=== PATIENT | female | born 1985 | race Caucasian/White ===

== ENCOUNTER 2018-03-16 12:23 | Outpatient (REF) | payer MEDICAID, SELFPAY ==
[2018-03-16 14:23] LABS: HCG Qual (Serum) Negative
== END 2018-03-16 12:43 ==
LOC: NCHCN 12:23
PROVIDERS: PCP Family Medicine; Visit Provider Family Medicine
DX: N91.1 Secondary amenorrhea (principal)
CPT/HCPCS: 84703

== ENCOUNTER 2018-09-02 02:07 | Emergency (ER) | payer MEDICAID, SELFPAY ==
[2018-09-02 02:11] VITALS: BP 141/98; PULSE 112; RESP 16; TEMP 36.4; O2SAT 98
--- NOTE | 2018-09-02 02:18 | W.ED.GENAD ---
Discharge Plan Disposition Patient Disposition: HOME Discharge Details Chief Complaint: Headache Clinical Impression: Headache Primary Care Provider: Chanel Tesfaye ED Provider: Pollo Gomez Home Meds and New Rx's Prescriptions: Continued ondansetron HCl [Zofran] 4 MG tablet 4 mg PO PRN RF: 0 norgestimate-ethinyl estradiol [Ortho Tri-Cyclen LO (28)] 1 EACH tablet 1 tab-cap PO DAILY RF: 0 Vyvanse 60 MG capsule 60 mg PO DAILY RF: 0 hydroxyzine HCl 50 MG tablet 50 mg PO PRN RF: 0 diflorasone 60 GM ointment 60 gm Topical BID RF: 0 buprenorphine-naloxone [Suboxone] 1 EACH film 1 ea Sublingual DAILY RF: 0 riboflavin (vitamin B2) [Vitamin B-2] 100 MG tablet 200 mg PO BID RF: 0 eletriptan [Relpax] 20 MG tablet 20 mg PO PRN RF: 0 omeprazole [Prilosec] 20 MG capsule,delayed release(DR/EC) 1 cap PO DAILY RF: 0 medroxyprogesterone [Provera] 10 mg Tablet 10 mg PO DAILY RF: 0 folic acid 1 mg Tablet 1 mg PO DAILY RF: 0 nicotine 7 mg/24 hr Patch 24 Hour 1 patch TRANSDERMAL Q24H RF: 0 cannabidiol (CBD) extract 100 mg/mL Solution 3 mg PO BID RF: 0 Discharge Instructions Instructions: Migraine Headache (ED) Additional Instructions: Please contact your primary care physician to arrange follow-up. Return to the ER for any worsening or new concerning symptoms. Referrals: Chanel Tesfaye MD [Primary Care Provider] - Medical Decision Making 2:20 --33-year-old female with history of migraine headache, here with headache consistent with prior migraines, ran out of her medication. Patient is neurologically intact with no meningeal findings. Plan to treat with Compazine IV, Benadryl IV, Toradol IV, IV fluid. I will reassessed. Patient refused to change into a gown. I explained that this would limit diagnostic capability which could potentially result in misdiagnosis. Patient verbalized understanding of my concern and provided informed refusal. 2:45 -- Pt reassessed: notes complete resolution of pain. Requesting discharge. Disposition decision was made weighing the risks and benefits of hospitalization versus outpatient treatment, the risk for further decompensation, and the patient's wishes. The patient was stable and requested discharge. Prior to discharge, my usual and customary return precautions were reviewed with the patient - this included follow-up instructions and reason to return to the emergency department if condition worsens, does not improve as expected, or other new concerns arise. HPI General Mode of arrival: ambulatory. Date/Time Provider Initiated Documentation: 09/02/18 02:12. Limitations to Documentation: no limitations. Information obtained by: patient. HPI Narrative: 33-year-old female with history of migraine headaches, presents with chief complaint of headache. Patient notes headache started at 5 PM yesterday. Headache has persisted. Headache is severe. Localized right side. Headache is not the worst headache of her life. Feels exactly like prior migraines. Last migraine this severe was approximately 2 weeks ago. She notes she typically takes a triptan for her headache but has run out. She also notes she did not have any ibuprofen today. She did take some Tylenol which did not help. No associated numbness or weakness. No neck stiffness. No fever. She does have photophobia. Related Data Home Medications Medication Instructions Recorded Confirmed norgestimate-ethinyl estradiol 1 tab-cap PO DAILY tab-cap 11/08/14 09/02/18 [Ortho Tri-Cyclen LO (28)] ondansetron HCl [Zofran] 4 mg PO PRN tab-cap 11/08/14 09/02/18 omeprazole [Prilosec] 1 cap PO DAILY 12/13/14 09/02/18 Vyvanse 60 mg PO DAILY tab-cap 05/01/15 09/02/18 hydroxyzine HCl 50 mg PO PRN 04/19/16 09/02/18 buprenorphine-naloxone [Suboxone] 1 ea SUBLINGUAL DAILY film 09/23/17 09/02/18 diflorasone 60 gm TOPICAL BID script 09/23/17 09/02/18 eletriptan [Relpax] 20 mg PO PRN 09/23/17 09/02/18 riboflavin (vitamin B2) [Vitamin 200 mg PO BID 09/23/17 09/02/18 B-2] cannabidiol (CBD) extract 3 mg PO BID 09/02/18 09/02/18 folic acid 1 mg PO DAILY 09/02/18 09/02/18 medroxyprogesterone [Provera] 10 mg PO DAILY 09/02/18 09/02/18 nicotine 1 patch TRANSDERMAL Q24H 09/02/18 09/02/18 Allergies Allergy/AdvReac Type Severity Reaction Status Date / Time tioconazole [From Monistat 1] Allergy Intermediate Swelling/Ed Unverified 09/02/16 08:09 erinn methotrexate Allergy Mild Contraindic Unverified 09/02/16 08:09 ated General Stated Complaint: Headache MAYA: 3 Review of Systems Constitutional Denies fever(s) and Reports headache(s) Eyes Denies blurry vision ENT Reports headache(s) Neurologic Reports headache(s) PFSH Medical History ADD (attention deficit disorder) Anterior uveitis Anxiety Depression Migraines Suspected cervical cancer Surgical History section Hemorrhoidectomy Social History Smoking/Tobacco Use Status: Current every day Tobacco Type: cigarettes Alcohol Intake: never Drug use: Occasionally Do you feel safe at home: Yes Do you feel safe in your relationship?: Yes Exam Const General: uncomfortable and no acute distress Orientation: alert and awake HENMT Head: normocephalic and atraumatic Mouth: moist mucous membranes Eyes Conjunctivae: normal conjunctivae Sclera: normal sclerae Pupils: PERRL EOM: EOM intact bilaterally Neck Neck: trachea midline and supple Resp Auscultation: clear to auscultation bilaterally, no rales, no rhonchi and no wheezes Cardio Jugular venous pressure: no JVD Rate: regular rate and not tachycardic Rhythm: regular rhythm Skin General skin exam: no rashes or lesions noted Neuro General: alert, awake, oriented x3, tone normal and no meningeal signs Cranial Nerves: CN's II-XI intact bilaterally Cognition: normal cognition Speech: speech normal Gait: normal gait Motor: muscle tone normal throughout and strength 5/5 throughout Sensory Exam: no sensory deficits noted Extrem General: no edema Psych Appearance: grossly normal Mental Status: mental status grossly normal Speech and Movement: speech and movement normal Course Vital Signs Temperature 36.4 C L 09/02/18 02:11 Pulse 112 H 09/02/18 02:11 Respiratory Rate 16 09/02/18 02:11 Blood Pressure 141/98 H 09/02/18 02:11 Pulse Oximetry 98 09/02/18 02:11 Temperature 36.4 C L 09/02/18 02:11 Temperature Source Temporal Artery Scan 09/02/18 02:11 Pulse 112 H 09/02/18 02:11 Respiratory Rate 16 09/02/18 02:11 Respiratory Effort 09/02/18 02:11 Blood Pressure 141/98 H 09/02/18 02:11 Blood Pressure Position Standing 09/02/18 02:11 Pulse Oximetry 98 09/02/18 02:11 Oxygen Delivery Method Room Air 09/02/18 02:11 Oxygen Flow Rate 0 09/02/18 02:11
[2018-09-02] MEDS: diphenhydrAMINE 50 MG/ML VIAL 25 MG IVP (02:24)
[2018-09-02] MEDS: Ketorolac 30 MG/ML VIAL IVP (02:24)
--- NOTE | 2018-09-02 02:24 | ED.GENADUL_ITS ---
Discharge Plan Disposition Patient Disposition: HOME Discharge Details Chief Complaint: Headache Clinical Impression: Headache Primary Care Provider: Chanel Tesfaye ED Provider: Pollo Gomez Home Meds and New Rx's Prescriptions: Continued ondansetron HCl [Zofran] 4 MG tablet 4 mg PO PRN RF: 0 norgestimate-ethinyl estradiol [Ortho Tri-Cyclen LO (28)] 1 EACH tablet 1 tab-cap PO DAILY RF: 0 Vyvanse 60 MG capsule 60 mg PO DAILY RF: 0 hydroxyzine HCl 50 MG tablet 50 mg PO PRN RF: 0 diflorasone 60 GM ointment 60 gm Topical BID RF: 0 buprenorphine-naloxone [Suboxone] 1 EACH film 1 ea Sublingual DAILY RF: 0 riboflavin (vitamin B2) [Vitamin B-2] 100 MG tablet 200 mg PO BID RF: 0 eletriptan [Relpax] 20 MG tablet 20 mg PO PRN RF: 0 omeprazole [Prilosec] 20 MG capsule,delayed release(DR/EC) 1 cap PO DAILY RF: 0 medroxyprogesterone [Provera] 10 mg Tablet 10 mg PO DAILY RF: 0 folic acid 1 mg Tablet 1 mg PO DAILY RF: 0 nicotine 7 mg/24 hr Patch 24 Hour 1 patch TRANSDERMAL Q24H RF: 0 cannabidiol (CBD) extract 100 mg/mL Solution 3 mg PO BID RF: 0 Discharge Instructions Instructions: Migraine Headache (ED) Additional Instructions: Please contact your primary care physician to arrange follow-up. Return to the ER for any worsening or new concerning symptoms. Referrals: Chanel eTsfaye MD [Primary Care Provider] - Medical Decision Making 2:20 --33-year-old female with history of migraine headache, here with headache consistent with prior migraines, ran out of her medication. Patient is neurologically intact with no meningeal findings. Plan to treat with Compazine IV, Benadryl IV, Toradol IV, IV fluid. I will reassessed. Patient refused to change into a gown. I explained that this would limit diagnostic capability which could potentially result in misdiagnosis. Patient verbalized understanding of my concern and provided informed refusal. 2:45 -- Pt reassessed: notes complete resolution of pain. Requesting discharge. Disposition decision was made weighing the risks and benefits of hospitalization versus outpatient treatment, the risk for further decompensation, and the patient's wishes. The patient was stable and requested discharge. Prior to discharge, my usual and customary return precautions were reviewed with the patient - this included follow-up instructions and reason to return to the emergency department if condition worsens, does not improve as expected, or other new concerns arise. HPI General Mode of arrival: ambulatory . Date/Time Provider Initiated Documentation: 09/02/18 02:12 . Limitations to Documentation: no limitations . Information obtained by: patient . HPI Narrative: 33-year-old female with history of migraine headaches, presents with chief complaint of headache. Patient notes headache started at 5 PM yesterday. Headache has persisted. Headache is severe. Localized right side. Headache is not the worst headache of her life. Feels exactly like prior migraines. Last migraine this severe was approximately 2 weeks ago. She notes she typically takes a triptan for her headache but has run out. She also notes she did not have any ibuprofen today. She did take some Tylenol which did not help. No associated numbness or weakness. No neck stiffness. No fever. She does have photophobia. Related Data Home Medications Medication Instructions Recorded Confirmed norgestimate-ethinyl estradiol 1 tab-cap PO DAILY tab-cap 11/08/14 09/02/18 [Ortho Tri-Cyclen LO (28)] ondansetron HCl [Zofran] 4 mg PO PRN tab-cap 11/08/14 09/02/18 omeprazole [Prilosec] 1 cap PO DAILY 12/13/14 09/02/18 Vyvanse 60 mg PO DAILY tab-cap 05/01/15 09/02/18 hydroxyzine HCl 50 mg PO PRN 04/19/16 09/02/18 buprenorphine-naloxone [Suboxone] 1 ea SUBLINGUAL DAILY film 09/23/17 09/02/18 diflorasone 60 gm TOPICAL BID script 09/23/17 09/02/18 eletriptan [Relpax] 20 mg PO PRN 09/23/17 09/02/18 riboflavin (vitamin B2) [Vitamin 200 mg PO BID 09/23/17 09/02/18 B-2] cannabidiol (CBD) extract 3 mg PO BID 09/02/18 09/02/18 folic acid 1 mg PO DAILY 09/02/18 09/02/18 medroxyprogesterone [Provera] 10 mg PO DAILY 09/02/18 09/02/18 nicotine 1 patch TRANSDERMAL Q24H 09/02/18 09/02/18 Allergies Allergy/AdvReac Type Severity Reaction Status Date / Time tioconazole [From Monistat 1] Allergy Intermediate Swelling/Ed Unverified 0 09/02/16 08:09 erinn methotrexate Allergy Mild Contraindic Unverified 09/02/16 08:09 ated General Stated Complaint: Headache MAYA: 3 Review of Systems Constitutional Denies fever(s) and Reports headache(s) Eyes Denies blurry vision ENT Reports headache(s) Neurologic Reports headache(s) PFSH Medical History ADD (attention deficit disorder) Anterior uveitis Anxiety Depression Migraines Suspected cervical cancer Surgical History section Hemorrhoidectomy Social History Smoking/Tobacco Use Status: Current every day Tobacco Type: cigarettes Alcohol Intake: never Drug use: Occasionally Do you feel safe at home: Yes Do you feel safe in your relationship?: Yes Exam Const General: uncomfortable and no acute distress Orientation: alert and awake HENMT Head: normocephalic and atraumatic Mouth: moist mucous membranes Eyes Conjunctivae: normal conjunctivae Sclera: normal sclerae Pupils: PERRL EOM: EOM intact bilaterally Neck Neck: trachea midline and supple Resp Auscultation: clear to auscultation bilaterally, no rales, no rhonchi and no wheezes Cardio Jugular venous pressure: no JVD Rate: regular rate and not tachycardic Rhythm: regular rhythm Skin General skin exam: no rashes or lesions noted Neuro General: alert, awake, oriented x3, tone normal and no meningeal signs Cranial Nerves: CN's II-XI intact bilaterally Cognition: normal cognition Speech: speech normal Gait: normal gait Motor: muscle tone normal throughout and strength 5/5 throughout Sensory Exam: no sensory deficits noted Extrem General: no edema Psych Appearance: grossly normal Mental Status: mental status grossly normal Speech and Movement: speech and movement normal Course Vital Signs Temperature 36.4 C L 09/02/18 02:11 Pulse 112 H 09/02/18 02:11 Respiratory Rate 16 09/02/18 02:11 Blood Pressure 141/98 H 09/02/18 02:11 Pulse Oximetry 98 09/02/18 02:11 Temperature 36.4 C L 09/02/18 02:11 Temperature Source Temporal Artery Scan 09/02/18 02:11 Pulse 112 H 09/02/18 02:11 Respiratory Rate 16 09/02/18 02:11 Respiratory Effort 09/02/18 02:11 Blood Pressure 141/98 H 09/02/18 02:11 Blood Pressure Position Standing 09/02/18 02:11 Pulse Oximetry 98 09/02/18 02:11 Oxygen Delivery Method Room Air 09/02/18 02:11 Oxygen Flow Rate 0 09/02/18 02:11
[2018-09-02] MEDS: Prochlorperazine 10 MG/2 ML VIAL IVP (02:25)
[2018-09-02] MEDS: Lactated Ringers 1,000 ML 1000 ML IV (02:25)
== END 2018-09-02 03:14 | disposition home or self-care (01) ==
LOC: ER 03:13
PROVIDERS: Emergency Provider Student in an Organized Health Care Education/Training Program; PCP Family Medicine
DX: G43.909 Migraine, unspecified, not intractable, without status migrainosus (principal)
CPT/HCPCS: 96374; 96375; 99284; 99283; J0780; J1200; J1885

== ENCOUNTER 2019-01-09 16:00 | Emergency (ER) | payer MEDICAID, SELFPAY ==
[2019-01-09 16:05] VITALS: BP 129/97; PULSE 98; RESP 22; TEMP 35.6; O2SAT 99
--- NOTE | 2019-01-09 16:12 | ED.GENADUL_ITS ---
Discharge Plan Disposition Patient Disposition: HOME Condition: Stable Discharge Details Chief Complaint: Headache Clinical Impression: Migraine Primary Care Provider: Chanel Tesfaye ED Provider: Wolfgang Nur Home Meds and New Rx's Prescriptions: New ondansetron 4 mg tablet,disintegrating 4 mg PO Q8H PRN (Reason: nausea and vomiting) Qty: 30 RF: 0 No Action ondansetron HCl [Zofran] 4 MG tablet 4 mg PO PRN RF: 0 norgestimate-ethinyl estradiol [Ortho Tri-Cyclen LO (28)] 1 EACH tablet 1 tab-cap PO DAILY RF: 0 Vyvanse 60 MG capsule 60 mg PO DAILY RF: 0 hydroxyzine HCl 50 MG tablet 50 mg PO PRN RF: 0 diflorasone 60 GM ointment 60 gm Topical BID RF: 0 buprenorphine-naloxone [Suboxone] 1 EACH film 1 ea Sublingual DAILY RF: 0 riboflavin (vitamin B2) [Vitamin B-2] 100 MG tablet 200 mg PO BID RF: 0 eletriptan [Relpax] 20 MG tablet 20 mg PO PRN RF: 0 omeprazole [Prilosec] 20 MG capsule,delayed release(DR/EC) 1 cap PO DAILY RF: 0 folic acid 1 mg Tablet 1 mg PO DAILY RF: 0 nicotine 7 mg/24 hr Patch 24 Hour 1 patch TRANSDERMAL Q24H RF: 0 cannabidiol (CBD) extract 100 mg/mL Solution 3 mg PO BID RF: 0 Discharge Instructions Instructions: Migraine Headache (ED) Additional Instructions: follow up with your primary care provider within 1-2 weeks if symptoms continue if you develop new symptoms such as high fevers or feel more ill return to the emergeny department for reassessment Medical Decision Making 33 yo female with hx of migraines comes in with complaints of migraine. She states it started today without any trauma and has slowly been worsening and feels similar to prior migraines. Has had n/v. 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 Her pain is similar to her prior migraines and slowly worsened so doubt sah. 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 Will tx with medications and reassess pt now pain free and has no deficits on exam and feels well enough to try and go home. Will d/c and advised f/u with pcp and return precautions given Differential Diagnosis migraine, tension headache, cluster headache HPI General Mode of arrival: ambulatory . Date/Time Provider Initiated Documentation: 01/09/19 16:02 . Limitations to Documentation: no limitations . Information obtained by: patient . History of Present Illness 33 year old F presents to the emergency department with the chief complaint of migraine, described as severe, Quality is described as aching and sharp, and it has been constant. No relieving factors improve symptom(s), No exacerbating factors reported . Patient did receive the following treatments prior to arrival, none Related Data Home Medications Medication Instructions Recorded Confirmed norgestimate-ethinyl estradiol 1 tab-cap PO DAILY tab-cap 11/08/14 01/09/19 [Ortho Tri-Cyclen LO (28)] ondansetron HCl [Zofran] 4 mg PO PRN tab-cap 11/08/14 01/09/19 omeprazole [Prilosec] 1 cap PO DAILY 12/13/14 01/09/19 Vyvanse 60 mg PO DAILY tab-cap 05/01/15 01/09/19 hydroxyzine HCl 50 mg PO PRN 04/19/16 01/09/19 buprenorphine-naloxone [Suboxone] 1 ea SUBLINGUAL DAILY film 09/23/17 01/09/19 diflorasone 60 gm TOPICAL BID script 09/23/17 01/09/19 eletriptan [Relpax] 20 mg PO PRN 09/23/17 01/09/19 riboflavin (vitamin B2) [Vitamin 200 mg PO BID 09/23/17 01/09/19 B-2] cannabidiol (CBD) extract 3 mg PO BID 09/02/18 01/09/19 folic acid 1 mg PO DAILY 09/02/18 01/09/19 nicotine 1 patch TRANSDERMAL Q24H 09/02/18 01/09/19 ondansetron 4 mg PO Q8H PRN #30 tab 01/09/19 Previous Rx's Medication Instructions Recorded ondansetron 4 mg PO Q8H PRN #30 tab 01/09/19 Allergies Allergy/AdvReac Type Severity Reaction Status Date / Time tioconazole [From Monistat 1] Allergy Intermediate Swelling/Ed Unverified 01/09/19 16:09 erinn methotrexate Allergy Mild Contraindic Unverified 01/09/19 16:09 ated General Stated Complaint: Headache MAYA: 2 Review of Systems Review of Systems All systems reviewed & are unremarkable except as noted in HPI and below Constitutional Denies chills, Denies fever(s) and Denies weakness Cardiovascular Denies chest pain and Denies dyspnea Respiratory Denies cough and Denies dyspnea Gastrointestinal Denies abdominal pain Musculoskeletal Denies joint swelling Neurologic Denies weakness PFS Social History Smoking/Tobacco Use Status: Current every day Tobacco Type: cigarettes Alcohol Intake: never Drug use: Occasionally Substance use type: marijuana Do you feel safe at home: Yes Do you feel safe in your relationship?: Yes Exam Const General: no acute distress Orientation: alert HENMT Head: normal to inspection Ears: external ears normal General nose exam: external nose normal Mouth: moist mucous membranes Eyes General: appearance normal, both eyes and all related structures Neck Neck: normal visual inspection Resp Effort & Inspection: normal respiratory effort and able to speak in complete sentences Cardio Rate: regular rate Skin General skin exam: no rashes or lesions noted Neuro General: alert and oriented x3 Extrem General: normal to inspection Psych Mental Status: mental status grossly normal Course Vital Signs Temperature 35.6 C L 01/09/19 16:05 Pulse 98 H 01/09/19 16:05 Respiratory Rate 22 01/09/19 16:05 Blood Pressure 129/97 H 01/09/19 16:05 Pulse Oximetry 99 01/09/19 16:05 Temperature 35.6 C L 01/09/19 16:05 Temperature Source Temporal Artery Scan 01/09/19 16:05 Pulse 98 H 01/09/19 16:05 Respiratory Rate 22 01/09/19 16:05 Blood Pressure 129/97 H 01/09/19 16:05 Pulse Oximetry 99 01/09/19 16:05 Oxygen Delivery Method Room Air 01/09/19 16:05 Oxygen Flow Rate 0 01/09/19 16:05
[2019-01-09] MEDS: Normal Saline 1,000 ML 1000 ML IV (16:30)
[2019-01-09] MEDS: diphenhydrAMINE 50 MG/ML VIAL 25 MG IVP (16:30)
[2019-01-09] MEDS: Ketorolac 30 MG/ML VIAL IVP (16:30)
[2019-01-09] MEDS: Prochlorperazine 10 MG/2 ML VIAL IVP (16:31)
[2019-01-09 17:09] VITALS: BP 137/87; PULSE 66; RESP 14; TEMP 36.6; O2SAT 98
== END 2019-01-09 17:09 | disposition home or self-care (01) ==
PROVIDERS: Emergency Provider Emergency Medicine; PCP Family Medicine
DX: G43.909 Migraine, unspecified, not intractable, without status migrainosus (principal)
CPT/HCPCS: 96361; 96374; 96375; 99284; J0780; J1200; J1885; J3490

== ENCOUNTER 2019-03-08 10:08 | Outpatient (REF) | payer MEDICAID, SELFPAY ==
[2019-03-08 13:26] LABS: BUN 17 mg/dL (7-18); CREATININE 0.96 mg/dL (0.55-1.02); Calcium 8.6 mg/dL (8.5-10.1); Chloride 107 mmol/L (98-107); Glucose 110 mg/dL (70-100); Potassium 4.6 mmol/L (3.5-5.1); Sodium 142 mmol/L (136-145)
[2019-03-08 14:32] LABS: Hemoglobin A1C 5.9 % (4.5-6.2)
== END 2019-03-08 10:28 ==
LOC: NCHCN 10:08
PROVIDERS: PCP Family Medicine; Visit Provider Family Medicine
DX: R73.09 Other abnormal glucose (principal)
CPT/HCPCS: 80048; 83036

== ENCOUNTER 2019-08-09 15:46 | Emergency (ER) | payer MEDICAID, SELFPAY ==
[2019-08-09 15:48] VITALS: BP 123/82; PULSE 96; RESP 18; TEMP 36.7; O2SAT 98
--- NOTE | 2019-08-09 15:55 | W.ED.GENAD ---
Discharge Plan Disposition Patient Disposition: HOME Condition: Improving Discharge Details Chief Complaint: Headache Clinical Impression: Migraine Primary Care Provider: Chanel Tesfaye ED Provider: Renita Cates Home Meds and New Rx's Prescriptions: Continued ondansetron HCl [Zofran] 4 MG tablet 4 mg PO PRN RF: 0 Vyvanse 60 MG capsule 60 mg PO DAILY RF: 0 buprenorphine-naloxone [Suboxone] 1 EACH film 1 film Sublingual DAILY RF: 0 riboflavin (vitamin B2) [Vitamin B-2] 100 MG tablet 200 mg PO BID RF: 0 eletriptan [Relpax] 20 MG tablet 20 mg PO PRN RF: 0 omeprazole [Prilosec] 20 MG capsule,delayed release(DR/EC) 1 cap PO DAILY PRNRF: 0 folic acid 1 mg Tablet 1 mg PO DAILY RF: 0 cannabidiol 100 mg/mL Solution 3 mg PO BID RF: 0 lisinopril 2.5 mg Tablet 2.5 mg PO DAILY RF: 0 Discharge Instructions Instructions: Migraine Headache (ED) Additional Instructions: Encourage water intake. Please continue with management of your migraines as you have had historically. Do not take any further ibuprofen until 11 PM. If you develop fever/chills, rash, weakness, sensation changes or other new/worsening symptoms please seek care urgently once again. Please follow-up with primary care in 1 week for reevaluation. Referrals: Chanel Tesfaye MD [Primary Care Provider] - Medical Decision Making Patient is a pleasant 34 year old female, accompanied by her daughter, with c/c of headache. Patient has hx of migraines and states that htis has been a typical migraine but that it has not responded to her typical migraine management of Relpax. Denies fevers/chills, no recent travel, no rash. Denies neck pain. Has been having photophobia, N/V. States vomited x 1 and decreased appetite and PO intake today. REYES began 5 hours prior to arrival. REYES was not a sudden onset, is not worse REYES of her life. On exam, patient appears uncomfortable. She is wearing glasses and turning her head into the wall for darkness. She is moving well, good strength. CN II-XII intact, no focal deficits noted. No nuchal rigidity, no rash noted. At this time, I do not see any evidence of SAH, PLAST[employer]ER infection particularly as the patient states that this is her typical migraine. She has responded well to compazine, benadryl, toradol in the past. As she does appear dry, will hydrate and will add dexamethasone to help prevent rebound. Discussed plan with the patient, she is in agreement. Continue pretreatment, patient reports her pain is improved substantially. She is resting discharge at this time. She does appear much more comfortable. She is given customary return precautions. She will follow-up with primary care next week. All of her questions or concerns were addressed and she is in agreement this plan. HPI General Mode of arrival: ambulatory. Date/Time Provider Initiated Documentation: 08/09/19 15:54. Limitations to Documentation: no limitations. Information obtained by: patient and RN notes reviewed. History of Present Illness 34 year old F presents to the emergency department with the chief complaint of Headache, described as severe and similar to prior episodes (hx of migraines), with intensity rated at 8. Quality is described as aching, and is localized to the head. Patient reports no radiation. Patient started experiencing this hour(s) (1100) and it has been constant. No relieving factors improve symptom(s), Other factors that worsen symptoms (photophobia) . Patient notes headaches, loss of appetite and nausea/vomiting (vomited x 1); denies chest pain, cough, diaphoresis, fever/chills, rash and shortness of breath. Patient did receive the following treatments prior to arrival, other (relpax) Related Data Home Medications Medication Instructions Recorded Confirmed ondansetron HCl [Zofran] 4 mg PO PRN tab-cap 11/08/14 08/09/19 omeprazole [Prilosec] 1 cap PO DAILY PRN 12/13/14 08/09/19 Vyvanse 60 mg PO DAILY tab-cap 05/01/15 08/09/19 buprenorphine-naloxone [Suboxone] 1 film SUBLINGUAL DAILY film 09/23/17 08/09/19 eletriptan [Relpax] 20 mg PO PRN 09/23/17 08/09/19 riboflavin (vitamin B2) [Vitamin 200 mg PO BID 09/23/17 08/09/19 B-2] cannabidiol 3 mg PO BID 09/02/18 08/09/19 folic acid 1 mg PO DAILY 09/02/18 08/09/19 lisinopril 2.5 mg PO DAILY 08/09/19 08/09/19 Allergies Allergy/AdvReac Type Severity Reaction Status Date / Time tioconazole [From Monistat 1] Allergy Intermediate Swelling/Ed Unverified 08/09/19 15:53 erinn methotrexate Allergy Mild Contraindic Unverified 08/09/19 15:53 ated General Stated Complaint: Headache MAYA: 3 Review of Systems Constitutional Constitutional: Reports as per HPI, Denies chills, Reports fatigue, Denies fever(s), Denies frequent falls, Reports headache(s), Denies snoring and Denies weakness Eyes Eyes: Reports as per HPI, Denies blurry vision, Denies change in vision and Reports photophobia ENT Ears, Nose, Mouth, and Throat: Denies vertigo, Reports headache(s) and Denies neck pain Cardiovascular Cardiovascular: Reports as per HPI, Denies chest pain, Denies lightheadedness, Denies radiating jaw, neck or arm pain, Denies dyspnea and Denies dyspnea on exertion Respiratory Respiratory: Reports as per HPI, Denies chest congestion, Denies cough, Denies dyspnea, Denies dyspnea on exertion, Denies snoring, Denies stridor and Denies wheezing Gastrointestinal Gastrointestinal: Reports as per HPI, Denies abdominal pain, Denies change in bowel habits, Reports nausea, Reports vomiting (x 1) and Denies hematemesis Musculoskeletal Musculoskeletal: Reports as per HPI, Denies back pain, Denies myalgias, Denies muscle cramps, Denies neck pain and Denies numbness Integumentary/Breasts Skin/Breast: Reports as per HPI and Denies rash Neurologic Neurologic: Reports as per HPI, Denies abnormal movements, Denies abnormal speech, Denies behavioral changes, Denies confusion, Denies vertigo, Denies frequent falls, Reports headache(s), Denies focal weakness, Denies numbness, Denies sensory deficit and Denies weakness Psychiatric Psychiatric: Denies behavioral changes and Denies confusion Endocrine Endocrine: Reports fatigue Allergic/Immunologic Allergic/Immunologic: Denies wheezing PFSH Medical History ADD (attention deficit disorder) Anterior uveitis Anxiety Depression Migraines Suspected cervical cancer Surgical History section Hemorrhoidectomy Social History Smoking/Tobacco Use Status: Current every day Tobacco Type: cigarettes Alcohol Intake: never Drug use: Current Sobriety Substance use type: marijuana Do you feel safe at home: Yes Do you feel safe in your relationship?: Yes Exam Const General: cooperative, healthy appearing, uncomfortable (wearing sunglasses, trying to stay in dark), no acute distress, well developed and well groomed Nutritional Appearance: well nourished and overweight Orientation: alert, awake and oriented x3 HENMT Head: normal to inspection, no palpable skull fracture, normocephalic and atraumatic Ears: hearing grossly normal bilaterally, external ears normal and TM's normal bilaterally General nose exam: external nose normal Mouth: oral mucosae normal and mucous membranes dry (appears dry) Throat: posterior oropharynx normal Eyes General: appearance normal, both eyes and all related structures Alignment and Position: alignment normal Periorbital: periorbital findings normal Eyelids: eyelids normal Sclera: sclerae normal Cornea: corneas normal Pupils: PERRL EOM: EOM intact bilaterally Neck Neck: normal visual inspection, full ROM, no lymphadenopathy and no meningeal signs Resp Effort & Inspection: normal respiratory effort, able to speak in complete sentences and no respiratory distress Auscultation: clear to auscultation bilaterally, no rales, no rhonchi and no wheezes Cardio Rate: regular rate Rhythm: regular rhythm Heart Sounds: S1 normal and S2 normal GI Inspection: normal to inspection and non-distended Palpation: soft, no hepatosplenomegaly, not firm, no guarding, not rigid and nontender Percussion: normal to percussion Auscultation: normal bowel sounds Back/Spine/Pelvis Cervical Spine: normal cervical lordosis and cervical ROM normal Skin General skin exam: no rashes or lesions noted Neuro General: alert, awake and oriented x3 Cranial Nerves: CN's II-XI intact bilaterally Cognition: normal cognition Speech: speech normal Gait: normal gait Motor: muscle tone normal throughout, strength 5/5 throughout, no pronator drift, no movement abnormalities noted and no fasciculations Sensory Exam: no sensory deficits noted Coordination: [id number] test normal and [id number] test normal Extrem General: normal to inspection, normal capillary refill, no pedal edema and no calf tenderness Psych Appearance: grossly normal and well kempt Mental Status: mental status grossly normal Speech and Movement: speech and movement normal Course Vital Signs Vital signs: Vital Signs Temperature 36.7 C 08/09/19 15:48 Pulse 96 H 08/09/19 15:48 Respiratory Rate 18 08/09/19 15:48 Blood Pressure 123/82 08/09/19 15:48 Pulse Oximetry 98 08/09/19 15:48 Temperature 36.7 C 08/09/19 15:48 Temperature Source Skin 08/09/19 15:48 Pulse 96 H 08/09/19 15:48 Respiratory Rate 18 08/09/19 15:48 Respiratory Effort 08/09/19 15:53 Blood Pressure 123/82 08/09/19 15:48 Blood Pressure Position Sitting 08/09/19 15:48 Pulse Oximetry 98 08/09/19 15:48 Oxygen Delivery Method Room Air 08/09/19 15:48 Oxygen Flow Rate 0 08/09/19 15:48 Pain Level 8 08/09/19 15:48
[2019-08-09] MEDS: Prochlorperazine 10 MG/2 ML VIAL IVP (17:06)
[2019-08-09] MEDS: Dexamethasone 10 MG/ML VIAL IVP (17:06)
[2019-08-09] MEDS: diphenhydrAMINE 50 MG/ML VIAL 25 MG IVP (17:06)
[2019-08-09] MEDS: Ketorolac 30 MG/ML VIAL IVP (17:06)
[2019-08-09] MEDS: Normal Saline 1,000 ML 1000 ML IV (17:07)
[2019-08-09 17:41] VITALS: BP 114/72; PULSE 60; TEMP 36.6; O2SAT 97
== END 2019-08-09 17:41 | disposition home or self-care (01) ==
PROVIDERS: Emergency Provider Physician Assistant; PCP Family Medicine
DX: G43.809 Other migraine, not intractable, without status migrainosus (principal)
CPT/HCPCS: 96361; 96374; 96375; 99284; J0780; J1100; J1200; J1885

== ENCOUNTER 2019-09-13 08:16 | Outpatient (REF) | payer MEDICAID, SELFPAY ==
[2019-09-13 10:45] LABS: Anion Gap 8.7 mmol/L (3-11); BUN 17 mg/dL (7-18); CO2 27.3 mmol/L (21.0-32.0); CREATININE 1.01 mg/dL (0.55-1.02); Calcium 8.8 mg/dL (8.5-10.1); Chloride 105 mmol/L (98-107); Glucose 107 mg/dL (74-106); Potassium 4.3 mmol/L (3.5-5.1); Sodium 141 mmol/L (136-145)
[2019-09-13 10:48] LABS: HCT 47.3 % (36.0-46.0); HGB 15.6 g/dL (12.0-15.5); Mean Corpuscular Hemoglobin 29.2 pg (27.0-33.0); Mean Corpuscular Volume 88.4 fL (80-95); Mean Platelet Volume 10.2 fL (8.0-11.0); Platelet Count 280 x1000/uL (130-400); RBC 5.35 m/cumm (4.00-5.20); RBC Distribution Width 12.8 % (11.7-14.6); White Blood Cell Count 7.48 k/cumm (4.4-10.8)
[2019-09-13 11:14] LABS: Hemoglobin A1C 6.1 % (3.8-5.6)
== END 2019-09-13 08:36 ==
LOC: NCHCN 08:16
PROVIDERS: PCP Family Medicine; Visit Provider Family Medicine
DX: I10 Essential (primary) hypertension (principal); F90.0 Attention-deficit hyperactivity disorder, predominantly inattentive type; H20.9 Unspecified iridocyclitis; R73.03 Prediabetes
CPT/HCPCS: 80048; 85027; 83036

== ENCOUNTER 2020-01-13 15:30 | Emergency (ER) | payer MEDICAID, SELFPAY ==
[2020-01-13 15:36] VITALS: BP 132/105; PULSE 96; RESP 18; TEMP 36.9; O2SAT 99
--- NOTE | 2020-01-13 15:46 | ED.GENADUL_ITS ---
Discharge Plan Disposition Patient Disposition: HOME Condition: Stable Discharge Details Chief Complaint: Orthopedic Clinical Impression: Contusion of nose Primary Care Provider: Chanel Tesfaye ED Provider: Ian Solorzano Home Meds and New Rx's Prescriptions: Continued ondansetron HCl [Zofran] 4 MG tablet 4 mg PO PRN RF: 0 Vyvanse 60 MG capsule 60 mg PO DAILY RF: 0 buprenorphine-naloxone [Suboxone] 1 EACH film 1 film Sublingual DAILY RF: 0 riboflavin (vitamin B2) [Vitamin B-2] 100 MG tablet 200 mg PO BID RF: 0 eletriptan [Relpax] 20 MG tablet 20 mg PO PRN RF: 0 omeprazole [Prilosec] 20 MG capsule,delayed release(DR/EC) 1 cap PO DAILY PRNRF: 0 folic acid 1 mg Tablet 1 mg PO DAILY RF: 0 cannabidiol 100 mg/mL Solution 3 mg PO BID RF: 0 lisinopril 2.5 mg Tablet 2.5 mg PO DAILY RF: 0 Discharge Instructions Instructions: Contusion in Adults (ED) Additional Instructions: He may have slight progression of bruising and swelling over the next 12 to 24 hours. Continue cool compresses to area to reduce discomfort. Return for any concerns. As discussed, your x-ray did not show any evidence of fracture. Medical Decision Making 34-year-old female presents from home. She states last night she was throwing a baseball underhand, forgot to let go of the basal and it struck her nose. She has had right greater than left nasal discomfort and swelling. She is otherwise been well. Denies other injury. She is in some discomfort and would noted diastolic hypertension, patient does have history of hypertension for which she takes lisinopril. Referred for nasal bone radiographs. No evidence of fracture. Discussed with her anticipated course of resolution. HPI General Mode of arrival: ambulatory . Date/Time Provider Initiated Documentation: 01/13/20 15:39 . Limitations to Documentation: no limitations . Information obtained by: patient . History of Present Illness 34 year old F presents to the emergency department with the chief complaint of No pain, described as moderate, Quality is described as dull and constant, and is localized to the face. Patient reports no radiation. Patient started experiencing this hour(s) and it has been constant. No relieving factors improve symptom(s), No exacerbating factors reported . Patient notes denies headaches and syncope. Related Data Home Medications Medication Instructions Recorded Confirmed ondansetron HCl [Zofran] 4 mg PO PRN tab-cap 11/08/14 01/13/20 omeprazole [Prilosec] 1 cap PO DAILY PRN 12/13/14 01/13/20 Vyvanse 60 mg PO DAILY tab-cap 05/01/15 01/13/20 buprenorphine-naloxone [Suboxone] 1 film SUBLINGUAL DAILY film 09/23/17 01/13/20 eletriptan [Relpax] 20 mg PO PRN 09/23/17 01/13/20 riboflavin (vitamin B2) [Vitamin 200 mg PO BID 09/23/17 01/13/20 B-2] cannabidiol 3 mg PO BID 09/02/18 01/13/20 folic acid 1 mg PO DAILY 09/02/18 01/13/20 lisinopril 2.5 mg PO DAILY 08/09/19 01/13/20 Allergies Allergy/AdvReac Type Severity Reaction Status Date / Time tioconazole [From Monistat 1] Allergy Intermediate Swelling/Ed Unverified 01/13/20 15:40 erinn methotrexate Allergy Mild Contraindic Unverified 01/13/20 15:40 ated General Stated Complaint: Orthopedic MAYA: 4 Review of Systems Narrative: No loss of consciousness. No other injury. No facial anesthesia. 4 systems reviewed and otherwise negative PENDING SALE TO [facility] Medical History ADD (attention deficit disorder) Anterior uveitis Anxiety Depression Migraines Suspected cervical cancer Social History Smoking/Tobacco Use Status: Current every day Tobacco Type: cigarettes Alcohol Intake: never Drug use: Current Sobriety Substance use type: marijuana Do you feel safe at home: Yes Do you feel safe in your relationship?: Yes Exam Narrative Exam Narrative: GEN: awake, alert, oriented 3. Pleasant, well groomed, interactive. HEAD: Normocephalic, atraumatic ENT: Mucous membranes moist, oropharynx unremarkable, no midface instability, no facial anesthesia, external ear exam unremarkable. Nasal bridge is tender to palpation EYES: PERRL, EOMI NECK: Full ROM, no DIANE, no menigismus Neuro: Grossly normal neurologic exam, conversant, interactive. Psych: Speech fluent, thoughts congruent, affect normal Course Vital Signs Vital signs: Vital Signs Temperature 36.9 C 01/13/20 15:36 Pulse 96 H 01/13/20 15:36 Respiratory Rate 18 01/13/20 15:36 Blood Pressure 132/105 H 01/13/20 15:36 Pulse Oximetry 99 01/13/20 15:36 Temperature 36.9 C 01/13/20 15:36 Temperature Source Skin 01/13/20 15:36 Pulse 96 H 01/13/20 15:36 Respiratory Rate 18 01/13/20 15:36 Respiratory Effort 01/13/20 15:40 Blood Pressure 132/105 H 01/13/20 15:36 Blood Pressure Position Sitting 01/13/20 15:36 Pulse Oximetry 99 01/13/20 15:36 Oxygen Delivery Method Room Air 01/13/20 15:36 Oxygen Flow Rate 0 01/13/20 15:36 Pain Level 4 01/13/20 15:36
--- NOTE | 2020-01-13 16:00 | DI.RAD_ITS ---
EXAM: XR NASAL BONES CLINICAL HISTORY: Blunt trauma, Pain. TECHNIQUE: 2D digital imaging was performed. COMPARISON: No exams were available for comparison FINDINGS: BONES: No evidence of fracture. The nasal septum is midline. The sinuses appear clear as visualized. SOFT TISSUES: Unremarkable. IMPRESSION: Unremarkable radiographs of the nasal bones. DATA REPOSITORY: RADIATION DOSE DELIVERED:
--- NOTE | 2020-01-13 16:16 | DI.VRAD_ITS ---
PROCEDURE INFORMATION: Exam: XR Nasal Bones, Minimum of 3 Views, Complete Exam date and time: 01/13/2020 3:58 PM Age: 34 years old Clinical indication: Nose pain TECHNIQUE: Imaging protocol: XR of the nasal bones, minimum of 3 views. Complete exam. COMPARISON: No relevant prior studies available. FINDINGS: Sinuses: Well aerated. No opacification. Bones/joints: No fracture. Soft tissues: Unremarkable. IMPRESSION: Unremarkable. Dictated and Authenticated by: Jeffrey Connors MD. Ordering:JOHN Sosa MD
== END 2020-01-13 16:25 | disposition home or self-care (01) ==
PROVIDERS: Emergency Provider Emergency Medicine; PCP Family Medicine
DX: S00.33XA Contusion of nose, initial encounter (principal); W21.03XA Struck by baseball, initial encounter
CPT/HCPCS: 99283; 70160

== ENCOUNTER 2020-05-19 11:07 | Outpatient (REF) | payer MEDICAID, SELFPAY ==
--- NOTE | 2020-05-19 10:20 | PAPFT_PTH ---
PATIENT: Yuliet Ashton LOC: [facility] U#:[id number] AGE/SX: 34/F ROOM: RE05/19/[address]: Chanel Tesfaye : 1985 BED: DIS: 05/19/2020 SPEC #: [id number] RECD: 05/19/20 18:09 STATUS: AWAIS REQ #: [id number] ROMERO: 05/19/20 10:[address]: Chanel Tesfaye DEPT: [facility] Cytology RECD BY: Debbie Sheehan Tissues: 1 - CX/ENDOCX FOR PAP SMEARS Procedures: PAP THIN PREP/[facility] Screening HPV DNA PROBE Comments: [id number] (CHLAMYDIA/GC) (HPV 16/ 18/45)
[2020-05-22 15:47] LABS: Chlamydia Result Negative (Negative); GC Result Negative (Negative)
== END 2020-05-19 11:27 ==
LOC: NCHCN 11:07
PROVIDERS: PCP Family Medicine; Visit Provider Family Medicine
DX: Z11.3 Encounter for screening for infections with a predominantly sexual mode of transmission (principal); Z12.4 Encounter for screening for malignant neoplasm of cervix; Z11.51 Encounter for screening for human papillomavirus (HPV); R87.810 Cervical high risk human papillomavirus (HPV) DNA test positive
CPT/HCPCS: 87491; 87591; 88142; 87624

== ENCOUNTER 2021-07-05 16:09 | Outpatient (REF) | payer MEDICAID, SELFPAY ==
[2021-07-05 18:46] LABS: Anion Gap 8.9 mmol/L (3-11); BUN 21 mg/dL (7-18); CO2 26.1 mmol/L (21.0-32.0); CREATININE 1.1 mg/dL (0.55-1.02); Chloride 105 mmol/L (98-107); Estimated GFR 55.89 (mL/min/1.73m2); Glucose 111 mg/dL (74-106); Potassium 3.4 mmol/L (3.5-5.1); Sodium 140 mmol/L (136-145)
[2021-07-05 18:58] LABS: Hemoglobin A1C 5.8 % (<5.7)
== END 2021-07-05 16:10 | disposition home or self-care (01) ==
LOC: NCHCN 16:09
PROVIDERS: PCP Family Medicine; Visit Provider Family Medicine
DX: I10 Essential (primary) hypertension (principal); R73.03 Prediabetes
CPT/HCPCS: 80048; 83036

== ENCOUNTER 2021-07-13 15:40 | Outpatient (REF) | payer MEDICAID, SELFPAY ==
--- NOTE | 2021-07-13 15:00 | PAPFT_PTH ---
PATIENT: Yuliet Ashton LOC: [facility]#:[id number] AGE/SX: 36/F ROOM: RE07/13/[address]: Chanel Tesfaye : 1985 BED: DIS: 07/13/2021 SPEC #: [id number] RECD: 07/16/21 12:45 STATUS: AWAIS RECullen #: [id number] ROMERO: 07/13/21 15:[address]: Chanel Tesfaye DEPT: [facility] Cytology RECD BY: Debbie Sheehan Tissues: 1 - CX/ENDOCX FOR PAP SMEARS Procedures: PAP THIN PREP/[facility] Screening HPV DNA PROBE Comments: [id number] (HPV 16 & 18/45)
== END 2021-07-13 15:41 | disposition home or self-care (01) ==
LOC: NCHCN 15:40
PROVIDERS: PCP Family Medicine; Visit Provider Family Medicine
DX: Z12.4 Encounter for screening for malignant neoplasm of cervix (principal); Z11.51 Encounter for screening for human papillomavirus (HPV); R87.810 Cervical high risk human papillomavirus (HPV) DNA test positive
CPT/HCPCS: 88142; 87624

== ENCOUNTER 2022-01-16 14:54 | Outpatient (REF) | payer MEDICAID, SELFPAY ==
[2022-01-16 19:54] LABS: Bilirubin Negative (Negative); Blood Negative (Negative); Clarity Sl Cloudy (Clear); Glucose Negative (Negative); Ketones Negative (Negative); Leukocyte Esterase Trace (Negative); Nitrite Negative (Negative); Specific Gravity >= 1.030 (1.005-1.025); Urobilinogen 0.2 EU/dL (Up TO 0.2)
[2022-01-16 20:06] LABS: Bacteria Many HPF (Negative); Crystals Negative HPF (Negative); Epithelial Cells Many HPF (Negative); Mucus Negative (Negative); RBC 0-2 HPF (0-2)
[2022-01-16 20:07] LABS: C & S Indicated? No/Sq. Contamination
== END 2022-01-16 14:55 | disposition home or self-care (01) ==
LOC: NCHCN 14:54
PROVIDERS: PCP Family Medicine; Visit Provider Family Medicine
DX: B37.3 Candidiasis of vulva and vagina (principal); R30.0 Dysuria
CPT/HCPCS: 81003; 81015; 87480; 87510; 87660

== ENCOUNTER 2022-01-18 14:46 | Outpatient (REF) | payer MEDICAID, SELFPAY | END 2022-01-18 14:47 | disposition home or self-care (01) | LOC: NCHCN 14:46 | PROVIDERS: PCP Family Medicine; Visit Provider Family Medicine | DX: N76.0 Acute vaginitis (principal); B37.3 Candidiasis of vulva and vagina | CPT/HCPCS: 87102; 87206 ==

== ENCOUNTER 2022-09-04 17:11 | Outpatient (REF) | payer MEDICAID, SELFPAY ==
[2022-09-05 02:07] LABS: HCT 46.6 % (36.0-46.0); HGB 15.1 g/dL (11.2-15.7); MCH 28.9 pg (27.0-33.0); MCHC 32.4 % (32.0-36.0); MCV 89 fL (80-95); MPV 10.3 fL (8.0-11.0); Platelet Count 330 10^3/uL (130-400); RBC 5.22 10^6/uL (3.93-5.22); RDW 12.3 % (11.7-14.6); RDW-SD 40.4 fL; WBC 8.46 10^3/uL (4.4-10.8)
[2022-09-05 11:24] LABS: ALT 36 U/L (14-59); AST 25 U/L (15-37); Albumin 3.8 g/dL (3.4-5.0); Alkaline Phosphatase 89 U/L (46-116); BUN 16 mg/dL (7-18); Bilirubin, Total 0.2 mg/dL (0.2-1.0); CREATININE 1.1 mg/dL (0.55-1.02); Calcium 9.8 mg/dL (8.5-10.1); Chloride 101 mmol/L (98-107); Estimated GFR 65.96 (mL/min/1.73m2); Glucose 96 mg/dL (74-106); Potassium 3.9 mmol/L (3.5-5.1); Sodium 138 mmol/L (136-145); Total Protein 7.9 g/dL (6.4-8.2)
[2022-09-05 13:26] LABS: Hemoglobin A1C 6.1 % (<5.7)
== END 2022-09-04 17:12 | disposition home or self-care (01) ==
LOC: NCHCN 17:11
PROVIDERS: PCP Family Medicine; Visit Provider Family Medicine
DX: I10 Essential (primary) hypertension (principal); R73.03 Prediabetes
CPT/HCPCS: 80053; 85027; 83036

== ENCOUNTER 2023-08-06 16:00 | Outpatient (REF) | payer MEDICAID, SELFPAY ==
--- OUTSIDE RECORDS SUMMARY | 2023-08-06 16:02 | XMS_ITS | CCD ---
Author Name Unknown Address [address] [place] [address] [phone] Organization Unknown Address [address] [place] [address] [phone] Care Team Providers Care Limnologist Name Role Phone .MODESTO MASSEY Attending Physician [phone] .MODESTO MASSEY Er Physician 6 [phone] SANDHYA Motley Registered Nurse [phone] Vital Signs Vital Sign Value Unit Date/Time Recent/Initial ? BMI (Body Mass Index) 35.88 kg/m^2 02/20/2022 18: 55 Initial VS Weight Measured 229.06 lbs 02/20/2022 18:55 Ini tial VS Height 67 in 02/20/2022 18:55 Initial VS BSA (Body Surface Area) 2.22 m^2 02/20/2022 1 8:55 Initial VS BP Systolic 135 mmHg 02/20/2022 18:55 Initial VS BP Diastolic 89 mmHg 02/20/2022 18:55 Initia l VS Respiratory Rate 18 bpm 02/20/2022 18:55 In itial VS Heart Rate 96 bpm 02/20/2022 18:55 Initial VS O2 % BldC Oximetry 100 % 02/20/2022 18:55 Initial VS Body Temperature 36.7 degrees 02/20/2022 18:55 In itial VS Allergies Allergy Code Allergy Type Reaction Status METHOTREXATE 6851 Drug allergy Active Procedures Unknown or Not Available. History of Immunizations Unknown or Not Available. Problems Unknown or Not Available. Results Unknown or Not Available. Active Medications Unknown or Not Available. Medications Administered During Visit Unknown or Not Available. Encounters Encounter Diagnosis Diagnosis Code Start Date Laceration without foreign b ariel of right forearm, initial encounter [id number] 02/20/2022 Social History Unknown or Not Available. Patient Decision Aids Unknown or Not Available. Discharge Instructions You were admitted to [facility] on 02/20/2022 18:45 with a principal diagnosis of Laceration without foreign body of right forearm, initial encounter You were discharged from [facility] on 02/20/2022 20:00 Should you have any questions prior to discharge, please contact a member of your healthcare team. If you have left the hospital and have any questions, please contact your primary care physician. Chief Complaint and Reason For Visit Chief Complaint Date of Onset RIGHT ARM INJURY Function Status Unknown or Not Available. Plan of Care Unknown or Not Available. Referral/Transition of Care Unknown or Not Available.
[2023-08-06 19:43] LABS: HCG Qual (Serum) Negative
[2023-08-06 19:53] LABS: Hemoglobin A1C 5.9 % (<5.7)
[2023-08-06 20:01] LABS: TSH 1.41 uIU/mL (0.36-3.74)
[2023-08-07 18:56] LABS: FSH 3.1 mIU/mL (See Note); LH 2.1 mIU/mL (See Note)
== END 2023-08-06 16:01 | disposition home or self-care (01) ==
LOC: NCHCN 16:00
PROVIDERS: PCP Family Medicine; Referring Provider Family Medicine; Visit Provider Family Medicine
DX: N91.1 Secondary amenorrhea (principal); R73.09 Other abnormal glucose
CPT/HCPCS: 83001; 83002; 83036; 84439; 84443; 84703

== ENCOUNTER 2023-10-04 16:16 | Outpatient (REF) | payer MEDICAID, SELFPAY ==
[2023-10-04 16:50] LABS: Abs Immature Grans 0.03 10^3/uL (0.0-0.06); Absolute Basophil Count 0.07 10^3/uL (0.0-0.2); Absolute Eosinophil Count 0.07 10^3/uL (0.0-0.7); Absolute Lymphocyte Count 1.88 10^3/uL (1.2-3.4); Absolute Neutrophil Count 5.04 10^3/uL (1.2-6.7); Basophils % 0.9; Eosinophils % 0.9; HCT 46.9 % (36.0-46.0); HGB 15.2 g/dL (11.2-15.7); Immature Grans % 0.4; Lymphocytes % 25.1; MCH 29.3 pg (27.0-33.0); MCHC 32.4 % (32.0-36.0); MCV 91 fL (80-95); MPV 9.7 fL (8.0-11.0); Monocytes % 5.3; Neutrophils % 67.4; Platelet Count 323 10^3/uL (130-400); RBC 5.18 10^6/uL (3.93-5.22); RDW 12.1 % (11.7-14.6); WBC 7.49 10^3/uL (4.4-10.8)
[2023-10-04 17:09] LABS: ALT 83 U/L (14-59); AST 59 U/L (15-37); Albumin 3.7 g/dL (3.4-5.0); Alkaline Phosphatase 104 U/L (46-116); Anion Gap 10.6 mmol/L (3-11); BUN 21 mg/dL (7-18); Bilirubin, Total 0.3 mg/dL (0.2-1.0); CO2 26.4 mmol/L (21.0-32.0); CREATININE 1.1 mg/dL (0.55-1.02); Calcium 8.9 mg/dL (8.5-10.1); Chloride 107 mmol/L (98-107); Estimated GFR 65.55 (mL/min/1.73m2); FREE T4 0.87 ng/dL (0.76-1.46); Glucose 101 mg/dL (74-106); Potassium 4.2 mmol/L (3.5-5.1); Sodium 144 mmol/L (136-145); TSH 1.55 uIU/Ml (0.36-3.74); Total Protein 7.5 g/dL (6.4-8.2)
== END 2023-10-04 16:17 | disposition home or self-care (01) ==
LOC: LBN 16:16
PROVIDERS: PCP Family Medicine; Visit Provider Student in an Organized Health Care Education/Training Program
DX: I10 Essential (primary) hypertension (principal); R73.03 Prediabetes; R11.2 Nausea with vomiting, unspecified; N91.1 Secondary amenorrhea
CPT/HCPCS: 80053; 84439; 84443; 85025

== ENCOUNTER 2023-10-17 15:01 | Outpatient (REF) | payer MEDICAID, SELFPAY ==
[2023-10-17 15:25] LABS: ALT 151 U/L (14-59); AST 85 U/L (15-37); Albumin 4.1 g/dL (3.4-5.0); Alkaline Phosphatase 81 U/L (46-116); Anion Gap 10.4 mmol/L (3-11); BUN 22 mg/dL (7-18); Bilirubin, Direct 0.2 mg/dL (0.0-0.2); Bilirubin, Total 0.4 mg/dL (0.2-1.0); CO2 25.6 mmol/L (21.0-32.0); CREATININE 1.2 mg/dL (0.55-1.02); Calcium 9.3 mg/dL (8.5-10.1); Chloride 104 mmol/L (98-107); Estimated GFR 59.05 (mL/min/1.73m2); GGT 40 U/L (5-55); Glucose 103 mg/dL (74-106); Sodium 140 mmol/L (136-145); Total Protein 7.6 g/dL (6.4-8.2)
[2023-10-17 22:16] LABS: HBs Antibody, Quant <3.1 mIU/mL (See Note); Hepatitis B Surface Ab Negative (See Note)
[2023-10-17 22:26] LABS: Hepatitis B Surface Ag Negative (Negative)
[2023-10-17 22:55] LABS: Hep B Core Antibody Negative (Negative)
[2023-10-17 22:59] LABS: Hep A Total Ab w Rflx IgM Negative (Negative); Hepatitis C Ab w Rflx HCV PCR Negative (Negative)
== END 2023-10-17 15:02 | disposition home or self-care (01) ==
LOC: NCHCN 15:01
PROVIDERS: PCP Family Medicine; Visit Provider Family Medicine
DX: I10 Essential (primary) hypertension (principal); R73.03 Prediabetes; R94.5 Abnormal results of liver function studies
CPT/HCPCS: 80048; 80076; 86704; 86706; 86709; 86803; 87340; 82977; 83036

== ENCOUNTER → 2023-10-21 05:02 | Outpatient (CLI) | payer MEDICAID, SELFPAY ==
--- NOTE | 2023-10-21 | DI.US_ITS ---
Exam(s) US ABDOMEN LIMITED EXAM: US ABDOMEN LIMITED CLINICAL HISTORY: ELEVATION OF LFT'S,R74.01 TECHNIQUE: Ultrasound abdomen performed using standard protocol. COMPARISON: No exams were available for comparison FINDINGS: PANCREAS: Normal where visualized. LIVER: There is diffuse increased echogenicity of the liver suggesting fatty infiltration. Hepatopet al flow in the Portal Vein. The liver measures in 13.8 cm length. No evidence of a hepatic mass. GALLBLADDER: No evidence of cholelithiasis. No evidence of wall thickening. No pericholecystic fluid identified. BILIARY SYSTEM: Common bile duct measures < 7 mm. No intrahepatic biliary ductal dilation. SOTO'S SIGN: Negative. RIGHT KIDNEY: Kidney is normal in size. No evidence of renal calculi. No evidence of hydronephrosis. No renal mass or cyst identified. ASCITES: None seen. IMPRESSION: Findings of increased echogenicity of the liver suggesting hepatic steatosis. DATA REPOSITORY:
== END ==
PROVIDERS: PCP Family Medicine; Visit Provider Family Medicine
DX: R74.01 Elevation of levels of liver transaminase levels (principal)
CPT/HCPCS: 76705

== ENCOUNTER 2023-10-23 01:21 | Outpatient (CLI) | payer MEDICAID, SELFPAY ==
[2023-10-23 13:57] LABS: Iron 115 ug/dL (50-170); Total Iron Binding Capacity 348 ug/dL (250-450); Transferrin Sat 33 % (15-50)
[2023-10-23 14:10] LABS: ALT 115 U/L (14-59); AST 52 U/L (15-37); Albumin 4.2 g/dL (3.4-5.0); Alkaline Phosphatase 78 U/L (46-116); Bilirubin, Total 0.5 mg/dL (0.2-1.0); Ferritin 241 ng/mL (8-252)
[2023-10-23 14:18] LABS: Bilirubin, Direct 0.2 mg/dL (0.0-0.2)
[2023-10-24 10:11] LABS: HIV-1/2 Ag & Ab Screen Negative (Negative)
[2023-10-24 14:01] LABS: dsDNA Ab, IgG <22.0 IU/mL (<27.0)
[2023-10-24 15:11] LABS: ANA Interpretation Negative (Negative)
[2023-10-25 12:06] LABS: Smooth Muscle Ab Screen Negative (Negative)
[2023-10-28 11:54] LABS: Liver/Kidney Microsome Type 1 <5.0 U
== END 2023-10-23 01:22 | disposition home or self-care (01) ==
LOC: LBO 01:21
PROVIDERS: PCP Family Medicine; Visit Provider Family Medicine
DX: R74.01 Elevation of levels of liver transaminase levels (principal)
CPT/HCPCS: 36415; 80076; 87389; 82728; 83540; 83550; 86038; 86225; 86255

== ENCOUNTER 2023-11-12 16:13 | Outpatient (REF) | payer MEDICAID, SELFPAY ==
[2023-11-12 20:08] LABS: ALT 84 U/L (14-59); AST 38 U/L (15-37); Albumin 3.9 g/dL (3.4-5.0); Alkaline Phosphatase 76 U/L (46-116); Bilirubin, Direct 0.1 mg/dL (0.0-0.2); Bilirubin, Total 0.4 mg/dL (0.2-1.0); Total Protein 7.1 g/dL (6.4-8.2)
== END 2023-11-12 16:14 | disposition home or self-care (01) ==
LOC: NCHCN 16:13
PROVIDERS: PCP Family Medicine; Visit Provider Family Medicine
DX: R74.01 Elevation of levels of liver transaminase levels (principal)
CPT/HCPCS: 80076

== ENCOUNTER 2023-12-08 18:32 | Outpatient (REF) | payer MEDICAID, SELFPAY ==
--- OUTSIDE RECORDS SUMMARY | 2023-12-08 18:33 | XMS_ITS ---
Author Name Unknown Address [address] [place] [address] [phone] Phone Organization Unknown Address [address] [place] [address] [phone] Phone Care Team Providers Care Publishing Systems Analyst Name Role Phone SANDHYA LIN Registered Nurse Unavailable BRYSON Prescott Attending Unavailable CHANELLE Roman Primary Unavailable UNLISTED PROVIDER - REQUESTED Xhandoff Un available Social History Type Status Start Date End Date Code Code Syst em Sex Female Vital Signs Vital Sign Value Unit Robertson Value Robertson Unit Date/Time Recent/Initial? Code Code System Body Mass Index 35.88 kg/m2 02/20/2022 18:55 Initial 49341 -5 [facility] Systolic Blood Pressure 135 mm[Hg] 02/20/2022 18:55 Initial 8480- 6 [facility] Diastolic Blood Pressure 89 mm[Hg] 02/20/2022 18:55 Initial 8462- 4 INC Body Surface Area 2.22 m2 02/20/2022 18:55 Initial 3140- 1 LOINC Height 170.180 0 cm 67.00 in 02/20/2022 18:55 Initial 8302- 2 INC O2 Saturation 100 % 2021 18:55 Initial 69326 -5 [facility] Pulse 96.0 /min 02/20/2022 18:55 Initial 8867- 4 LOINC Respiration 18 /min 02/21/20 18:55 Initial 9279- 1 LOINC Temperature 36.7 Rahel 98.1 F 02/21/20 18:55 Initial 8310- 5 LOINC Weight 103.90 kg 229.06 lbs 02/20/2022 18:55 Initial 51706 -7 [facility] Hospital Discharge Instructions Should you have any questions prior to discharge, please contact a member of your healthcare team. If you have left the hospital and have any questions, please contact your primary care physician. Reason For Referral No Data Found Allergies and Adverse Reactions Allergy Substance Reaction Severity Start Date Concern Status Co de Code System METHOTREXATE Active 3767 RxNorm Plan of Treatment No Data Found Encounters Encounter Diagnosis Start Date Code Code Sys tem Laceration without foreign b ariel of right forearm, initial encounter 02/20/2022 SNOMED-[facility] Personal Care Team Section Performer Name Performer Role Active Date Inactive Da te
[2023-12-08 21:22] LABS: Bilirubin Small (Negative); Blood Small (Negative); Clarity Sl Cloudy (Clear); Glucose Negative (Negative); Ketones 15 mg/dL (Negative); Leukocyte Esterase Trace (Negative); Nitrite Negative (Negative); Specific Gravity 1.025 (1.005-1.025)
[2023-12-08 21:34] LABS: Bacteria Negative HPF (Negative); C & S Indicated? No/Sq. Contamination; Crystals Many Calcium Oxalate HPF (Negative); Epithelial Cells Many HPF (Negative); Mucus Moderate (Negative); Other Cells Rare Transitional (Negative)
== END 2023-12-08 18:33 | disposition home or self-care (01) ==
LOC: LBN 18:32
PROVIDERS: PCP Family Medicine; Visit Provider Nurse Practitioner Family
DX: R35.0 Frequency of micturition (principal); R39.15 Urgency of urination; N39.0 Urinary tract infection, site not specified
CPT/HCPCS: 81003; 81015

== ENCOUNTER 2023-12-12 13:12 | Outpatient (REF) | payer MEDICAID, SELFPAY ==
--- OUTSIDE RECORDS SUMMARY | 2023-12-12 13:14 | XMS_ITS ---
Author Name Unknown Address [address] [place] [address] [phone] Phone Organization Unknown Address [address] [place] [address] [phone] Phone Care Team Providers Care Data Communications Software Consultant Name Role Phone SANDHYA LIN Registered Nurse Unavailable BRYSON Prescott Attending Unavailable CHANELLE Roman Primary Unavailable UNLISTED PROVIDER - REQUESTED Xhandoff Un available Social History Type Status Start Date End Date Code Code Syst em Sex Female Vital Signs Vital Sign Value Unit Bartholomew Value Bartholomew Unit Date/Time Recent/Initial? Code Code System Body Mass Index 35.88 kg/m2 02/20/2022 18:55 Initial 42764 -5 [facility] Systolic Blood Pressure 135 mm[Hg] 02/20/2022 18:55 Initial 8480- 6 [facility] Diastolic Blood Pressure 89 mm[Hg] 02/20/2022 18:55 Initial 8462- 4 INC Body Surface Area 2.22 m2 02/20/2022 18:55 Initial 3140- 1 LOINC Height 170.180 0 cm 67.00 in 02/20/2022 18:55 Initial 8302- 2 INC O2 Saturation 100 % 2021 18:55 Initial 10385 -5 [facility] Pulse 96.0 /min 02/20/2022 18:55 Initial 8867- 4 LOINC Respiration 18 /min 02/21/20 18:55 Initial 9279- 1 LOINC Temperature 36.7 Rahel 98.1 F 02/21/20 18:55 Initial 8310- 5 LOINC Weight 103.90 kg 229.06 lbs 02/20/2022 18:55 Initial 11427 -7 [facility] Hospital Discharge Instructions Should you have any questions prior to discharge, please contact a member of your healthcare team. If you have left the hospital and have any questions, please contact your primary care physician. Reason For Referral No Data Found Allergies and Adverse Reactions Allergy Substance Reaction Severity Start Date Concern Status Co de Code System METHOTREXATE Active 0071 RxNorm Plan of Treatment No Data Found Encounters Encounter Diagnosis Start Date Code Code Sys tem Laceration without foreign b ariel of right forearm, initial encounter 02/20/2022 SNOMED-CT Personal Care Team Section Performer Name Performer Role Active Date Inactive Da te
[2023-12-12 16:16] LABS: Bilirubin Negative (Negative); Blood Negative (Negative); Clarity Clear (Clear); Glucose Negative (Negative); Ketones Trace mg/dL (Negative); Leukocyte Esterase Negative (Negative); Nitrite Negative (Negative); Specific Gravity <= 1.005 (1.005-1.025); Urobilinogen 0.2 mg/dL (Up to 0.2)
[2023-12-12 16:20] LABS: ALT 60 U/L (14-59); AST 32 U/L (15-37); Albumin 4.4 g/dL (3.4-5.0); Alkaline Phosphatase 90 U/L (46-116); Bilirubin, Direct 0.2 mg/dL (0.0-0.2); Bilirubin, Total 0.47 mg/dL (0.2-1.0)
== END 2023-12-12 13:13 | disposition home or self-care (01) ==
LOC: NCHCN 13:12
PROVIDERS: PCP Family Medicine; Visit Provider Family Medicine
DX: R10.11 Right upper quadrant pain (principal); R30.0 Dysuria
CPT/HCPCS: 80076; 81003

== ENCOUNTER 2023-12-17 15:10 | Outpatient (REF) | payer MEDICAID, SELFPAY ==
--- OUTSIDE RECORDS SUMMARY | 2023-12-17 15:12 | XMS_ITS ---
Author Name Unknown Address [address] [place] [address] [phone] Phone Organization Unknown Address [address] [place] [address] [phone] Phone Care Team Providers Care Day Care Teacher Name Role Phone SANDHYA LIN Registered Nurse Unavailable BRYSON Prescott Attending Unavailable CHANELLE Roman Primary Unavailable UNLISTED PROVIDER - REQUESTED Xhandoff Un available Social History Type Status Start Date End Date Code Code Syst em Sex Female Vital Signs Vital Sign Value Unit Mccracken Value Mccracken Unit Date/Time Recent/Initial? Code Code System Body Mass Index 35.88 kg/m2 02/20/2022 18:55 Initial 77451 -5 [facility] Systolic Blood Pressure 135 mm[Hg] 02/20/2022 18:55 Initial 8480- 6 [facility] Diastolic Blood Pressure 89 mm[Hg] 02/20/2022 18:55 Initial 8462- 4 INC Body Surface Area 2.22 m2 02/20/2022 18:55 Initial 3140- 1 LOINC Height 170.180 0 cm 67.00 in 02/20/2022 18:55 Initial 8302- 2 INC O2 Saturation 100 % 2021 18:55 Initial 83259 -5 [facility] Pulse 96.0 /min 02/20/2022 18:55 Initial 8867- 4 LOINC Respiration 18 /min 02/21/20 18:55 Initial 9279- 1 LOINC Temperature 36.7 Rahel 98.1 F 02/21/20 18:55 Initial 8310- 5 LOINC Weight 103.90 kg 229.06 lbs 02/20/2022 18:55 Initial 07429 -7 [facility] Hospital Discharge Instructions Should you have any questions prior to discharge, please contact a member of your healthcare team. If you have left the hospital and have any questions, please contact your primary care physician. Reason For Referral No Data Found Allergies and Adverse Reactions Allergy Substance Reaction Severity Start Date Concern Status Co de Code System METHOTREXATE Active 2632 RxNorm Plan of Treatment No Data Found Encounters Encounter Diagnosis Start Date Code Code Sys tem Laceration without foreign b ariel of right forearm, initial encounter 02/20/2022 SNOMED-CT Personal Care Team Section Performer Name Performer Role Active Date Inactive Da te
== END 2023-12-17 15:11 | disposition home or self-care (01) ==
LOC: NCHCN 15:10
PROVIDERS: PCP Family Medicine; Visit Provider Family Medicine
DX: R30.0 Dysuria (principal)
CPT/HCPCS: 87086

== ENCOUNTER → 2023-12-23 01:31 | Outpatient (CLI) | payer MEDICAID, SELFPAY ==
--- NOTE | 2023-12-23 | DI.NM_ITS ---
Exam(s) NM HEPATOBILIARY SCAN GRP EXAM: NM HEPATOBILIARY SCAN GRP CLINICAL HISTORY: NAUSEA, VOMITING R11.2, R10.11. TECHNIQUE: Injected dose: 5 mCi Tc-99 mebrofenin Initial dynamic images: 60 minutes Post-Gallbladder fillin ounces of Ensure p.o. Additional images: 30 minute dynamic following ensure administration. COMPARISON: CT RENAL COLIC WO CONTRAST from 09/02/2016 US US ABDOMEN LIMITED from 10/21/2023 FINDINGS: Normal hepatic transit time. Prompt excretion into the gallbladder. Delayed visualization the small bowel, not visible at 70 minutes. Small bowel immediately visible fo llowing ensure administration. Gallbladder ejection fraction: 69 percent IMPRESSION: Normal gallbladder ejection fraction. Mild delay in visualization of small bowel. SNM guidelines: Gallbladder visualization should be present by 3 hours. Delayed dowjdow-fy-teoum guardado sit beyond 60 min raises the suspicion for partial common bile duct (CBD) obstruction. Gallbladder ejection fraction <35% has a good correlation with acalculous disease (i.e., chronic acal culous cholecystitis, cystic duct syndrome, sphincter of Oddi disease).
--- OUTSIDE RECORDS SUMMARY | 2023-12-23 01:33 | XMS_ITS ---
Author Name Unknown Address [address] [place] [address] [phone] Phone Organization Unknown Address [address] [place] [address] [phone] Phone Care Team Providers Care Water Restoration Technician Name Role Phone SANDHYA LIN Registered Nurse Unavailable BRYSON Prescott Attending Unavailable CHANELLE Roman Primary Unavailable UNLISTED PROVIDER - REQUESTED Xhandoff Un available Social History Type Status Start Date End Date Code Code Syst em Sex Female Vital Signs Vital Sign Value Unit Coffee Value Coffee Unit Date/Time Recent/Initial? Code Code System Body Mass Index 35.88 kg/m2 02/20/2022 18:55 Initial 80340 -5 [facility] Systolic Blood Pressure 135 mm[Hg] 02/20/2022 18:55 Initial 8480- 6 [facility] Diastolic Blood Pressure 89 mm[Hg] 02/20/2022 18:55 Initial 8462- 4 INC Body Surface Area 2.22 m2 02/20/2022 18:55 Initial 3140- 1 LOINC Height 170.180 0 cm 67.00 in 02/20/2022 18:55 Initial 8302- 2 INC O2 Saturation 100 % 2021 18:55 Initial 27022 -5 [facility] Pulse 96.0 /min 02/20/2022 18:55 Initial 8867- 4 LOINC Respiration 18 /min 02/21/20 18:55 Initial 9279- 1 LOINC Temperature 36.7 Rahel 98.1 F 02/21/20 18:55 Initial 8310- 5 LOINC Weight 103.90 kg 229.06 lbs 02/20/2022 18:55 Initial 93630 -7 [facility] Hospital Discharge Instructions Should you have any questions prior to discharge, please contact a member of your healthcare team. If you have left the hospital and have any questions, please contact your primary care physician. Reason For Referral No Data Found Allergies and Adverse Reactions Allergy Substance Reaction Severity Start Date Concern Status Co de Code System METHOTREXATE Active 8333 RxNorm Plan of Treatment No Data Found Encounters Encounter Diagnosis Start Date Code Code Sys tem Laceration without foreign b ariel of right forearm, initial encounter 02/20/2022 SNOMED-CT Personal Care Team Section Performer Name Performer Role Active Date Inactive Da te
== END ==
PROVIDERS: PCP Family Medicine; Visit Provider Family Medicine
DX: R11.2 Nausea with vomiting, unspecified (principal)
CPT/HCPCS: 78227

== ENCOUNTER 2024-02-11 12:27 | Outpatient (REF) | payer MEDICAID, SELFPAY ==
--- OUTSIDE RECORDS SUMMARY | 2024-02-11 12:32 | XMS_ITS | Encounter Summary ---
Author Organization [facility] Address [address] [place] [address] Care Team Providers Care Orchard Manager Name Role Phone Chanel [place] MD Primary Care Provider [phone] Encounter Details Date Type Department Care Team (Late st Contact Info) Description 09/28/2014 Results Only [facility] Laboratory Services - [facility] ([facility]) [address] [place], [place] [phone] Chanel [place] MD [address] [facility] [facility] [place] [address] Social History Tobacco Use Types Packs/Day Years Used Date Smoking Tobacco: Former Cigarettes Q uit: 07/11/2014 Alcohol Use Standard Drinks/Week Comments Yes 0 (1 standard drink = 0.6 oz pur e alcohol) occ. Sex and Gender Information Value Date Recorded Sex Assigned at Not on file Gender Identity Not on file Sexual Orientation Not on file documented as of this encounter Functional Status Functional Status Response Date of Assess ment Are you deaf or do you have serious difficulty h earing? No 07/14/2014 Are you blind or do you have serious difficulty seeing, even when wearing glasses? No 07/14/2014 Do you have serious difficul ty walking or climbing stairs? (5 years old or older) No 07/14/2014 Do you have difficulty dress ing or bathing? (5 years old or older) No 07/14/2014 Because of a physical, menta l, or emotional condition, do you have difficulty doing errands alone such as visiting a doctor's office or shopping? (15 years old or older) No 07/14/2014 Cognitive Status Response Date of Assessm ent Because of a physical, menta l, or emotional condition, do you have serious difficulty concentrating, remembering, or making decisions? (5 years old or older) Yes 07/14/2014 documented as of this encounter Plan of Treatment Not on file documented as of this encounter Procedures Procedure Name Priority Date/Time Associated Diagnosis Comments PAP TEST- RESULT ONLY Routine 09/28/2014 0:00 EDT documented in this encounter Results * PAP TEST- RESULT ONLY (09/28/2014 0:00 EDT) Pathology Report: CYTOPATHOLOGY REPORT Reports generated via electronic interface contain original data; however they are lacking the format of the original report. Caution should be taken when reading/interpreti ng unformatted reports. Name: ? SOO ASHTON ? Accession #: ? [id number] ? : ? 1985 (Age: 29) ??F ?Collect Date: ? 09/28/2014 ? Location: ? [facility] ? Receive Date: ? 09/29/2014 ? Provider: CHANEL [place] MD Copy to: ? Final Report SPECIMEN ADEQUACY ? Satisfactory for Evaluation - transformation zone component present GENERAL CATEGORIZATION ? Epithelial Cell Abnormality INTERPRETATION ? Squamous Cell Abnormality - Low grade squamous intraepithelial lesion (LSIL). EDUCATIONAL NOTES/RECOMMENDATI ONS ? [facility] recommends following ASCCP's 2012 Updated Consensus Guidelines for the Management of Abnormal Cervical Cancer Screening Tests and Cancer Precursors (JLGTD, 2013; 17(5):S1-S27). ??Consensus guidelines are available online at www.asccp.org. Last Menstrual Period: 09/07/14 Specimen/Source: ??Pap Test, Cervix/Endocervix, ThinPrep Imaging System with manual evaluation Document reviewed and electronically signed by: ? DONALD DON MD ? Report ??Date: 10/11/2014 15:59 HPV with Pap Test ? Date Ordered: ? 10/11/2014 ? Status: ?? Signed Out ?Date Complete: ? 10/13/2014 ? By: ??System Interface ? Date Reported: ? 10/13/2014 ? Interpretation RESULT: Positive for high or intermediate risk HPV. E6 OR E7 mRNA from one or more types of HPV types 16,18,31, 33,35,39,45,51,52, 56,58,59,66, and 68 is detected by industrial health engineer mediated amplification. High and intermediate risk HPV types are associated with most squamous intraepithelial lesions and cervical cancers. Comments Document reviewed and electronically signed by: ? System Interface ? Report date: 10/13/2014 By the signature above, the attending physician certifies that he/she has personally conducted a gross and/or microscopic examination of the described specimens and rendered or confirmed the above diagnosis. End of Report [facility] 09/28/2014 09/29/2014 Chanel [place] MD PATHOLOGY ORDERABLES [facility] [address] [place] [address] documented in this encounter Visit Diagnoses Not on filedocumented in this encounter Care Teams Orchard Manager Relationship Specialty Start Date End Date Chanel [place] MD [address] [place] [phone] PCP - General 04/03/09 documented as of this encounter
--- OUTSIDE RECORDS SUMMARY | 2024-02-11 12:32 | XMS_ITS | Encounter Summary ---
Author Organization [facility] Address [address] [place] [id number] Care Team Providers Care Manugrapher Name Role Phone Chanel [place] MD Primary Care Provider [phone] Encounter Details Date Type Department Care Team (Late st Contact Info) Description 09/22/2012 Results Only [facility] Laboratory Services - [facility] ([facility]) [address] [place], [place] [phone] Harry Llanos, DO [address] [facility] [address] [place], [place] [phone] Social History Tobacco Use Types Packs/Day Years Used Date Smoking Tobacco: Never Assessed Sex and Gender Information Value Date Recorded Sex Assigned at Not on file Gender Identity Not on file Sexual Orientation Not on file documented as of this encounter Plan of Treatment Not on file documented as of this encounter Procedures Procedure Name Priority Date/Time Associated Diagnosis Comments SURGICAL PATHOLOGY Routine 09/22/2012 8:51 EDT documented in this encounter Results * SURGICAL PATHOLOGY (09/22/2012 8:51 EDT) Pathology Report: SURGICAL PATHOLOGY REPORT Reports generated via electronic interface contain original data; however they are lacking the format of the original report. Caution should be taken when reading/interpreti ng unformatted reports. Name: ? SOO ASHTON ? Accession #: ? [id number] ? : ? 1985 (Age: 27) ??F ? Collect Date: ? 09/22/2012 ? Location: ? [facility] ? Receive Date: ? 09/23/2012 ? Provider: HARRY LLANOS DO Copy to: CHANEL ROCA MD ? Final Pathologic Diagnosis: ? Submitted as hemorrhoid, excisional biopsy: 1. ?Thrombosed submucosal hemorrhoids. 2. ? Overlying skin with focal erosion; Negative for dysplasia. Document reviewed and electronically signed by: CECE ERICKSON MD Report ??Date: 09/25/2012 16:47 By the signature above, the attending physician certifies that he/she has personally conducted a gross and/or microscopic examination of the described specimens and rendered or confirmed the above diagnosis. Specimen(s) Received: ? Hemorrhoid Clinical History: ? Hemorrhoid; recurrent thrombosed hemorrhoid Gross Description: ? Received in formalin labelled Soo [place] and hemorrhoid is a pink-orr, ovoid soft tissue measuring 3.1 x 1.1 x 1.0 cm. ??On the mucosal aspect, there is a red-brown nodule measuring 0.7 x 0.4 x 0.4 cm. ??The surgical resection margin is inked blue. ??Upon sectioning, there is a prominent hemorrhagic filled vessel measuring 0.7 cm in greatest dimension. ??Approximately 50% of the specimen is submitted as (1). ??(Lizet Duke)/lidia End of Report JALEESA LUGO 09/22/2012 8:51 EDT 09/23/2012 8:51 EDT Harry Llanos DO PATHOLOGY ORDER EZEQUIEL JALEESA [place] [address] [place] [address] documented in this encounter Visit Diagnoses Not on filedocumented in this encounter Care Teams Manugrapher Relationship Specialty Start Date End Date Chanel [place] MD [address] [place] [phone] PCP - General 04/03/09 documented as of this encounter
--- OUTSIDE RECORDS SUMMARY | 2024-02-11 12:32 | XMS_ITS | Encounter Summary ---
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 shares parenting of her two children. She really wouldn't need to be hospitalized, if it weren't for her emergent traumaresidues which are draining her ability to function and stimulate her depression and SI. Does this patient meet EE criteria? No. Level of risk to self: Low. Level of risk to others: Low. Preliminary psychiatric diagnosis: BPAD-II Plan: Remain in E/D until placement is arranged at [facility]. Assessment and plan discussed with: Jasiel Hoyos MD Exam: Appearance: Demure and subdued. Behavior: Slouching in family room chair, willing to be held by her same sex partner. Cooperation: Unable to ascertain: possible secondary gains from being able to [place]acon her close family to sympathize with her stuck situation. Patient asserts being at suicide risk, but [facility]. Mood: Depressed and anxious. Affect: Reflective of her poor self-concept. Thought content: I don't want to be in life. Thought process: Rational, coherent, vague, perseverating on ways to suicide Suicidality: Moderate Homicidality: Low Clinician Oziel Villegas MPA, MA, [facility] documented in this encounter Plan of Treatment Not on file documented as of this encounter Visit Diagnoses Diagnosis Suicidal ideation- Primary Depression Depressive disorder, not elsewhere classified documented in this encounter Administered Medications Inactive Administered Medications - up to 3 most recent administrations Medication Order MAR Action Action Date Dose Rate Site citalopram (CELEXA) tablet 60 mg 60 mg, oral, DAILY, First dose on Fri07/06/14 at 0900, Until Discontinued, STAT Given 07/06/2014 9:24 EST 60 mg clonazePAM (KLONOPIN) tablet 0.5 mg 0.5 mg, oral, 3 TIMES DAILY, First dose on Fri07/06/14 at 0345, Until Discontinued, STAT Given 07/06/2014 5:18 EST 0.5 mg ketOROLAC (TORADOL) injection 30 mg 30 mg, intramuscular, NOW X1, 1 dose, On Fri07/06/14 at 0015, STAT Given 07/06/2014 3:01 EST 30 mg lisdexamfetamine (VYVANSE) capsule 60 mg 60 mg, oral, DAILY, First dose on Fri07/06/14 at 0900, Until Discontinued, STAT Given 07/06/2014 9:24 EST 60 mg ondansetron (ZOFRAN-ODT) disintegrating tablet 4 mg 4 mg, oral, NOW X1, 1 dose, On Fri07/06/14 at 0015, STAT Given 07/06/2014 3:01 EST 4 mg topiramate (TOPAMAX) tablet 50 mg 50 mg, oral, EVERY 12 HOURS, First dose on Fri07/06/14 at 0345, Until Discontinued, STAT Given 07/06/2014 5:18 EST 50 mg documented in this encounter Discontinued Medications Medication Sig Discontinue Reason Start Date End Da te citalopram (CELEXA) 20 mg tablet Take 1 Tab by mouth daily for 6 days. Error 07/06/2014 07/06/2014 documented as of this encounter Historical Medications * This list may reflect changes made after this encounter. Medication Sig Dispensed Refills Start Date End Date lisdexamfetamine (VYVANSE) 60 mg capsule Take 60 mg by mouth daily. clonazePAM (KLONOPIN) 0.5 mg tablet Take 0.5 mg by mouth 3 times daily. 07/21/2014 topiramate (TOPAMAX) 50 mg tablet Take 50 mg by mouth 2 times daily. 07/21/2014 citalopram (CELEXA) 20 mg tablet Take 50 mg by mouth daily. 07/21/2014 added in this encounter Active and Recently Administered Medications Times are shown in EST. Scheduled Medication Order 07/04/2014 07/05/2014 07/06/2014 citalopram (CELEXA) tablet 60 mg (CANCELED) 60 mg, oral, DAILY, First dose on Fri07/06/14 at 0900, Until Discontinued, STAT 0924 (Given - Provid er: Vita Bahena RN) clonazePAM (KLONOPIN) tablet 0.5 mg (CANCELED) 0.5 mg, oral, 3 TIMES DAILY, First dose on Fri07/06/14 at 0345, Until Discontinued, STAT 0518 (Given - Provid er: Vita Bahena RN)1111 (Not Given - Provider: Gia Canseco RN - Reason: Other - Comment: given earlier)1400 (Due) ketOROLAC (TORADOL) injection 30 mg (COMPLETED) 30 mg, intramuscular, NOW X1, 1 dose, On Fri07/06/14 at 0015, STAT 0301 (Given - Provid er: Susanna Finney RN) lisdexamfetamine (VYVANSE) capsule 60 mg (CANCELED) 60 mg, oral, DAILY, First dose on Fri07/06/14 at 0900, Until Discontinued, STAT 0924 (Given - Provid er: Vita Bahena RN) ondansetron (ZOFRAN-ODT) disintegrating tablet 4 mg (COMPLETED) 4 mg, oral, NOW X1, 1 dose, On Fri07/06/14 at 0015, STAT 0301 (Given - Provid er: Susanna Finney RN) topiramate (TOPAMAX) tablet 50 mg (CANCELED) 50 mg, oral, EVERY 12 HOURS, First dose on Fri07/06/14 at 0345, Until Discontinued, STAT 0518 (Given - Provid er: Vita Bahena RN) documented in this encounter Care Teams Lead Recoverer Relationship Specialty Start Date End Date Chanel Tesfaye MD [address] [place] [phone] PCP - General 04/03/09 documented as of this encounter
--- OUTSIDE RECORDS SUMMARY | 2024-02-11 12:32 | XMS_ITS | Encounter Summary ---
Author Organization [facility] Address [address] [place] [address] Care Team Providers Care Cafe Server Name Role Phone Unavailable Primary Care Provider Unavailabl e Encounter Details Date Type Department Care Team (Late st Contact Info) Description 03/24/2009 Orders Only [facility] Laboratory Services - [facility] ([facility]) [address] [place], [place] [address] Chanel Roca MD [address] [facility] [address] [place] [address] Social History Tobacco Use Types Packs/Day Years Used Date Smoking Tobacco: Never Assessed Sex and Gender Information Value Date Recorded Sex Assigned at Not on file Gender Identity Not on file Sexual Orientation Not on file documented as of this encounter Plan of Treatment Not on file documented as of this encounter Procedures Procedure Name Priority Date/Time Associated Diagnosis Comments CYTOPATHOLOGY Routine 03/24/2009 0:00 EDT documented in this encounter Results * CYTOPATHOLOGY (03/24/2009 0:00 EDT) Pathology Report: CYTOPATHOLOGY REPORT ? Reports generated via electronic interface contain original data; ? however they are lacking the format of the original report. ? Caution should be taken when reading/interpreti ng unformatted reports. ? Name: ? NORWAY, SOO R ? Accession #: ? [id number] ? : ? 1986 (Age: 22) ??F ?Collect Date: ? 03/24/2009 ? Location: ? [facility] ? Receive Date: ? 03/27/2009 ? Provider: ?CHANEL ROCA MD ? Copy to: ? Specimen/Source: ?Pap Test, Cervix, ThinPrep Imaging System with manual ?? evaluation ? Last Menstrual Period: ? 07/09 ? Menstrual/Pregnanc y Status: ? Previous Gynecologic Pathology: ? HPV: 09/25/06 ? ASC-US: 06/08 ? Other: ? HPVA - HPV testing requested if ASC-US on the current ThinPrep Pap test. ? SPECIMEN ADEQUACY ? Satisfactory for Evaluation ? - transformation zone component absent ? GENERAL CATEGORIZATION ? Negative for Intraepithelial Lesion or Malignancy ? Document reviewed and electronically signed by: ? Anabelle Melton, SCT(ASCP) ? Report Date: ??03/31/2009 15:21 ? End of Report ? JALEESA LUGO 03/24/2009 03/27/2009 Chanel Roca MD PATHOLOGY ORDERABLES [facility] [address] [place] [address] documented in this encounter Visit Diagnoses Not on filedocumented in this encounter
--- OUTSIDE RECORDS SUMMARY | 2024-02-11 12:32 | XMS_ITS | Encounter Summary ---
Author Organization [facility] Address [address] [place] [address] Care Team Providers Care Mask Design Engineer Name Role Phone Chanel Tesfaye MD Primary Care Provider [phone] Encounter Details Date Type Department Care Team (Late st Contact Info) Description 05/19/2020 Lab Requisition [facility] Pathology & Laboratory Medicine - [address] [address] Outr Resulting Lab, Provider Social History Tobacco Use Types Packs/Day Years [...] Procedure Name Priority Date/Time Associated Diagnosis Comments CHLAMYDIA/N. GONORRHOEAE AMPLIFIED NUCLEIC ACID, THINPREP Routine 05/19/2020 10:20 EST documented in this encounter Results * CHLAMYDIA/N. GONORRHOEAE AMPLIFIED RNA, THINPREP (05/19/2020 10:20 EST) Neisseria gonorrhoeae Result Negative Negative 05/22/2020 15:[address] [facility] Chlamydia trachomatis Result Negative Negative 05/22/2020 15:[address] [facility] Papanicolaou smear specimen (specimen) CERVIX UTERI STRUCTURE / Unknown 05/19/2020 10:20 EST 05/22/2020 8:09 EST Provider Outr Resulting Lab MICROBIOLOGY - GENERAL ORDERABLES Performing Organization Address City/State/[facility] Co de Phone Number [facility] [address] [place] [address] documented in this encounter Visit Diagnoses Not on filedocumented in this encounter Care Teams Mask Design Engineer Relationship Specialty Start Date End Date Chanel Tesfaye MD [address] [place] [phone] PCP - General 04/03/09 documented as of this encounter
--- OUTSIDE RECORDS SUMMARY | 2024-02-11 12:32 | XMS_ITS | Encounter Summary ---
Author Organization [facility] Address [address] [place] [address] Care Team Providers Care Carpenter Mine Name Role Phone Chanel Tesfaye MD Primary Care Provider Encounter Details Date Type Department Care Team (Late st Contact Info) Description 12/05/2023 Lab Requisition [facility] Pathology & Laboratory Medicine - [address] [address] Eliud Garcia MD [address] [place] [phone] Change in bowel habit; Melena Social History Tobacco Use Types Packs/Day Years [...] Priority Date/Time Associated Diagnosis Comments SURGICAL PATHOLOGY Today 12/03/2023 8:53 EDT Change in bowel habit Melena documented in this encounter Results * SURGICAL PATHOLOGY (12/03/2023 8:53 EDT) Note to Patient The following pathology results have been interpreted by your pathologist and may be available to you before your health provider has had the opportunity to review them. Please allow time for your provider to receive these results and explore management options, if applicable. 12/09/2023 10:38 [facility] Final Diagnosis A. COLON, RANDOM, BIOPSIES: - Fragments of colonic mucosa with no significant histopathologic abnormalities. 12/09/2023 10:38 [facility] Diagnosis Comment The technical component of the specimen processing was performed at the [facility] Pathology Department, [address] [place] [address] (CLIA [id number]). The professional component of the specimen evaluation (slide review and issuing of the final diagnosis) was performed at [facility], [address] [place] [address] (CLIA License Number [id number]). 12/09/2023 10:38 [facility] Attestation By the signature below, the attending physician certifies that they have 1) personally conducted a gross and/or microscopic examination of the described specimen(s), and/or personally interpreted the results of laboratory testing of the described specimen(s), and 2) personally rendered or confirmed the above diagnosis. 12/09/2023 10:38 [facility] at 1038 Clinical History Elevated liver enzymes, NAFLD, nausea and vomiting, irregular bowels, dysphagia, marijuana use, hematochezia; clinical diagnosis code: K92.1, R19.4 12/09/2023 10:38 EDT [facility] Gross Description A. Received in formalin labelled with proper patient identification (initials N, V) and A. Random colon biopsy are 2 orr-white to orr tissues (0.5 x 0.1 by less than 0.1 cm and 0.1 x 0.1 by less than 0.1 cm). Entirely submitted in A1. Please note the smaller tissue may not survive processing. Martha Louis 12/05/2023 9:50 12/09/2023 10:38 EDT [facility] Performing Lab [facility] 10:38 EDT [facility] Scanned Images 12/09/2023 10:38 EDT [facility] Tissue COLON STRUCTURE / Unknown 12/03/2023 8:53 EDT 12/05/2023 8:40 EDT Eliud Garcia MD PATHOLOGY ORD ERABLES [facility] [address] [place] [address] documented in this encounter Visit Diagnoses Diagnosis Change in bowel habit Melena Blood in stool documented in this encounter Care Teams Carpenter Mine Relationship Specialty Start Date End Date Chanel Tesfaye MD [address] [place] [phone] PCP - General 04/03/09 documented as of this encounter
--- OUTSIDE RECORDS SUMMARY | 2024-02-11 12:32 | XMS_ITS | Encounter Summary ---
Author Organization [facility] Address [address] [place] [address] Care Team Providers Care Manager Warehouse Name Role Phone Chanel Tesfaye MD Primary Care Provider [phone] Encounter Details Date Type Department Care Team (Late st Contact Info) Description 10/23/2023 Lab Requisition [facility] Pathology & Laboratory Medicine - [address] [address] Outr Resulting Lab, Provider Social History Tobacco [...] Procedure Name Priority Date/Time Associated Diagnosis Comments DOUBLE STRANDED DNA ANTIBODY, IGG Routine 10/23/2023 12:45 EDT ANTI NUCLEAR AB (ALLA), IFA Routine 10/23/2023 12:45 EDT documented in this encounter Results * DOUBLE STRANDED DNA ANTIBODY, IGG (10/23/2023 12:45 EDT) dsDNA Ab, IgG <22.0 <27.0 IU/mL 10/24/2023 13:57 EDT [facility] Comment: Negative: <27.0 IU/mL Indeterminate: 27.0 - 35.0 IU/mL Positive: >35.0 IU/mL Results were obtained with [employer] Flash dsDNA chemiluminescent immunoassay. Values obtained with different manufacturers' assay methods may not be used interchangeably. Blood VENOUS BLOOD / Unknown 10/23/2023 12:45 EDT 10/23/2023 22:18 EDT Provider Outr Resulting Lab IMMUNOLOGY A ND SEROLOGY ORDERABLES Performing Organization Address City/[facility]/ZIP Co de Phone Number [facility] [address] [place] [phone] * ANTI NUCLEAR AB (ALLA), IFA (10/23/2023 12:45 EDT) ALLA Interpretation Negative Negative 2023 15:07 EDT [facility] Comment:No titer performed, ALLA Screen is negative. Blood VENOUS BLOOD / Unknown 10/23/2023 12:45 EDT 10/23/2023 22:18 EDT Narrative [facility] - 10/24/2023 15:07 EDT Results were obtained with the INOVA NOVA Lite HEp-2 ALLA Kit by indirect immunofluorescence. Provider Outr Resulting Lab IMMUNOLOGY A ND SEROLOGY ORDERABLES [facility] [address] [place] [address] documented in this encounter Visit Diagnoses Not on filedocumented in this encounter Care Teams Manager Warehouse Relationship Specialty Start Date End Date Chanel Tesfaye MD [address] [place] [phone] PCP - General 04/03/09 documented as of this encounter
--- OUTSIDE RECORDS SUMMARY | 2024-02-11 12:32 | XMS_ITS | Encounter Summary ---
Author Organization [facility] Address [address] [place] [address] Care Team Providers Care Hair Clipper Power Name Role Phone Chanel Tesfaye MD Primary Care Provider [phone] Encounter Details Date Type Department Care Team (Latest Contact Info) Description 10/19/2014 7:52 EDT - 10/19/2014 23:59 EDT Hospital Encounter [address] [address] Unknown, Provider, Discharge Disposition: Home or Self Care Social [...] Yes 07/14/2014 documented as of this encounter Medications at Time of Discharge Medication Sig Dispensed Refills Start Date End Date buPROPion (WELLBUTRIN XL) 150 mg XL tablet Take 1 Tab by mouth daily. 30 Tab 0 07/21/2014 citalopram (CELEXA) 20 mg tablet Take 1 Tab by mouth daily. 30 Tab 0 07/21/2014 clonazePAM (KLONOPIN) 0.5 mg tablet Take 1 Tab by mouth 2 times daily as needed (anxiety). 1 Tab 0 07/21/2014 clonazePAM (KLONOPIN) 1 mg tablet Take 1 Tab by mouth at bedtime as needed (insomnia). 30 Tab 0 07/21/2014 ibuprofen (MOTRIN) 800 mg tablet Take 1 Tab by mouth every 6 hours as needed for Pain. 07/21/2014 lisdexamfetamine (VYVANSE) 60 mg capsule Take 60 mg by mouth daily. ondansetron (ZOFRAN-ODT) 4 mg disintegrating tablet Take 1 Tab by mouth every 4 hours as needed for Nausea. 30 Tab 0 07/21/2014 sumatriptan (IMITREX) 50 mg tablet Take 1 Tab by mouth daily as needed for Migraine. 9 Tab 0 07/21/2014 zolpidem (AMBIEN) 5 mg tablet Take 1 Tab by mouth at bedtime as needed for Sleep. 30 Tab 0 07/21/2014 documented as of this encounter Discharge Disposition Disposition Code Departure Means Destination Home or Self Long Term documented in this encounter Plan of Treatment Not on file documented as of this encounter Visit Diagnoses Not on filedocumented in this encounter Care Teams Hair Clipper Power Relationship Specialty Start Date End Date Chanel Tesfaye MD [address] [place] [phone] PCP - General 04/03/09 documented as of this encounter
--- OUTSIDE RECORDS SUMMARY | 2024-02-11 12:32 | XMS_ITS | Encounter Summary ---
Author Organization [facility] Address [address] [place] [address] Care Team Providers Care Undercutter Name Role Phone Chanel Roca MD Primary Care Provider [phone] Encounter Details Date Type Department Care Team (Late st Contact Info) Description 03/18/2011 Results Only [facility] Laboratory Services - [facility] ([facility] [address] [place], [place] [address] Chanel Roca MD [address] [facility] [address] [place] [phone] Social History Tobacco Use Types [...] Diagnosis Comments PAP TEST- RESULT ONLY Routine 03/18/2011 0:00 EDT documented in this encounter Results * PAP TEST- RESULT ONLY (03/18/2011 0:00 EDT) Pathology Report: CYTOPATHOLOGY REPORT Reports generated via electronic interface contain original data; however they are lacking the format of the original report. Caution should be taken when reading/interpreti ng unformatted reports. Name: ? SOO ASHTON ? Accession #: ? [id number] : ? 1985 (Age: 25) ??F ?Collect Date: ? 03/18/2011 Location: ? [facility] ? Receive Date: ? 03/20/2011 Provider: ?CHANEL ROCA MD Copy to: ? Specimen/Source: ?Pap Test, Cervix/Endocervix, ThinPrep Imaging System with manual evaluation Last Menstrual Period: ? 02/23/11 Previous Gynecologic Pathology: ? Yes: Hx abnormal pap HPV: + ? SPECIMEN ADEQUACY ? Satisfactory for Evaluation - transformation zone component present GENERAL CATEGORIZATION ? Negative for Intraepithelial Lesion or Malignancy ? Document reviewed and electronically signed by: ? Emily Carroll CT(ASCP) ? Report Date: ??03/26/2011 15:09 End of Report JALEESA LUGO 03/18/2011 03/20/2011 Chanel Roca MD PATHOLOGY ORDERABLES Performing Organization Address City/State/[facility] Co de Phone Number [facility] LU[facility] [address] [place] [address] documented in this encounter Visit Diagnoses Not on filedocumented in this encounter Care Teams Undercutter Relationship Specialty Start Date End Date Chanel Roca MD [address] [place] [address] [phone] PCP - General 04/03/09 documented as of this encounter
--- OUTSIDE RECORDS SUMMARY | 2024-02-11 12:32 | XMS_ITS | Encounter Summary ---
Author Organization [facility] Address [address] [place] [address] Care Team Providers Care Account Underwriter Name Role Phone Chanel Tesfaye MD Primary Care Provider [phone] Encounter Details Date Type Department Care Team (Late st Contact Info) Description 10/23/[address] [facility] Pathology & Laboratory Medicine - [address] [address] Outr Resulting Lab, Provider Social History Tobacco [...] Procedure Name Priority Date/Time Associated Diagnosis Comments HIV 1/2 ANTIGEN AND ANTIBODY, 4TH GENERATION Routine 10/23/2023 12:45 EDT documented in this encounter Results * HIV 1/2 ANTIGEN AND ANTIBODY, 4TH GENERATION (10/23/2023 12:45 EDT) HIV 1 and 2 Antibody/p24 Antigen, 4th Generation Negative Negative 10/24/2023 10:06 EDT [facility] Comment:If acute HIV-1 infec tion is suspected in a high risk patient, submit plasma specimen for HIV-1 RNA quantitation test. Blood VENOUS BLOOD / Unknown 10/23/2023 12:45 EDT 10/23/2023 22:18 EDT Narrative [facility] - 10/24/2023 10:06 EDT Fourth Generation assay performed on the Siemens Centaur XPT. Provider Outr Resulting Lab IMMUNOLOGY A ND SEROLOGY ORDERABLES [facility] [address] [place] [address] documented in this encounter Visit Diagnoses Not on filedocumented in this encounter Care Teams Account Underwriter Relationship Specialty Start Date End Date Chanel Tesfaye MD [address] [place] [address] [phone] PCP - General 04/03/09 documented as of this encounter
--- OUTSIDE RECORDS SUMMARY | 2024-02-11 12:32 | XMS_ITS | Encounter Summary ---
Author Organization [facility] Address [address] [place] [address] Care Team Providers Care Clinical Registered Nurse Name Role Phone Chanel Roca MD Primary Care Provider [phone] Encounter Details Date Type Department Care Team (Late st Contact Info) Description 04/22/2016 Results Only [facility] [phone] Dinah Morse MD [address] [place] [phone] Social History Tobacco Use Types Packs/Day Years [...] Diagnosis Comments PAP TEST- RESULT ONLY Routine 04/22/2016 0:00 EST documented in this encounter Results * PAP TEST- RESULT ONLY (04/22/2016 0:00 EST) Pathology Report: CYTOPATHOLOGY REPORT Reports generated via electronic interface contain original data; however they are lacking the format of the original report. Caution should be taken when reading/interpreti ng unformatted reports. Name: ? SOO ASHTON ? Accession #: ? [id number] ? : ? 1985 (Age: 30) ??F ?Collect Date: ? 04/22/2016 ? Location: ? [facility] ? Receive Date: ? 04/23/2016 ? Provider: DINAH MORSE MD Copy to: CHANEL ROCA MD ? Final Report SPECIMEN ADEQUACY ? Satisfactory for Evaluation - transformation zone component present GENERAL CATEGORIZATION ? Negative for Intraepithelial Lesion or Malignancy ?? Previous Gynecologic Pathology: VANCE I HPV: + HR 04/2015, with ??Neg Pap Treatment History: Colposcopy Specimen/Source: ??Pap Test, Cervix, ThinPrep Imaging System with manual evaluation Document reviewed and electronically signed by: ? CINTHYA Harris(ASCP) ? Report ??Date: 04/25/2016 11:42 HPV with Pap Test ? Date Ordered: ? 04/25/2016 ? Status: ?? Signed Out ?Date Complete: ? 04/29/2016 ? By: ??System Interface ? Date Reported: ? 04/29/2016 ? Interpretation RESULT: Negative for HPV. No E6 or E7 mRNA is detected from HPV types 16,18,31,33,35, 39,45,51,52,56,58, 59,66, and 68 by tool grinder operator surface mediated amplification. Comments Document reviewed and electronically signed by: ? System Interface ? Report date: 04/29/2016 By the signature above, the attending physician certifies that he/she has personally conducted a gross and/or microscopic examination of the described specimens and rendered or confirmed the above diagnosis. End of Report [facility] 04/22/2016 04/23/2016 Dinah Morse MD PATHOLOGY ORDERABLES Performing Organization Address City/State/[facility] [[email or web address]] Co de Phone Number [facility] [address] [place] [address] documented in this encounter Visit Diagnoses Not on filedocumented in this encounter Care Teams Clinical Registered Nurse Relationship Specialty Start Date End Date Chanel Roca MD [address] [place] [phone] PCP - General 04/03/09 documented as of this encounter
--- OUTSIDE RECORDS SUMMARY | 2024-02-11 12:32 | XMS_ITS | Encounter Summary ---
Author Organization [facility] Address [address] [place] [address] Care Team Providers Care Spinning Room Worker Name Role Phone Chanel Tesfaye MD Primary Care Provider [phone] Encounter Details Date Type Department Care Team (Late st Contact Info) Description 10/17/2023 Lab Requisition [facility] Pathology & Laboratory Medicine - [address] [address] Outr Resulting Lab, Provider Social History Tobacco [...] Procedure Name Priority Date/Time Associated Diagnosis Comments HEPATITIS C AB W REFLEX TO HCV RNA BY PCR Routine 10/17/2023 11:39 EDT HEPATITIS A TOTAL ANTIBODY W REFLEX Routine 10/17/2023 11:39 EDT HEPATITIS B CORE ANTIBODY (TOTAL) Routine 10/17/2023 11:39 EDT HEPATITIS B SURFACE ANTIBODY Routine 10/17/2023 11:39 EDT HEPATITIS B SURFACE ANTIGEN Routine 10/17/2023 11:39 EDT documented in this encounter Results * HEPATITIS B SURFACE ANTIBODY (10/17/2023 11:39 EDT) Hep B Surface Ab, Quantitative <3.1 See Note mIU/mL 10/17/2023 22:11 EDT [facility] Comment: Reference Range for Hep B Surface Ab, Quant: Positive: >= 10.0 mIU/mL Negative: ??< 10.0 mIU/mL Patient is presumed to not be immune to infection with Hepatitis B Virus. Hep B Surface Ab, Qualitative Negative See Note 10/17/2023 22:11 EDT [facility] Comment: Reference Range for Hep B Surface Ab, Qual: Unvaccinated: ??Negative Vaccinated: ??Positive Blood VENOUS BLOOD / Unknown 10/17/2023 11:39 EDT 10/17/2023 21:16 EDT Provider Outr Resulting Lab CHEMISTRY & BLOOD GAS ORDERABLES [facility] [address] [place] [address] * HEPATITIS B CORE ANTIBODY (TOTAL) (10/17/2023 11:39 EDT) Hepatitis B Core Ab, Total Negative Negative 10/17/2023 22:50 EDT [facility] Blood VENOUS BLOOD / Unknown 10/17/2023 11:39 EDT 10/17/2023 21:16 EDT Provider Outr Resulting Lab CHEMISTRY & BLOOD GAS ORDERABLES Performing Organization Address [facility] Co de Phone Number [facility] [address] [place] [address] * HEPATITIS B SURFACE ANTIGEN (10/17/2023 11:39 EDT) Hep B Surface Ag Negative Negative 10/17/2023 22:21 EDT [facility] Blood VENOUS BLOOD / Unknown 10/17/2023 11:39 EDT 10/17/2023 21:16 EDT Provider Outr Resulting Lab CHEMISTRY & BLOOD GAS ORDERABLES Performing Organization Address [facility] Co de Phone Number [facility] [address] [place] [address] * HEPATITIS C AB W REFLEX TO HCV RNA BY PCR (10/17/2023 11:39 EDT) Hep C Antibody Negative Negative 10/17/2023 22:53 EDT [facility] Blood VENOUS BLOOD / Unknown 10/17/2023 11:39 EDT 10/17/2023 21:16 EDT Provider Outr Resulting Lab CHEMISTRY & BLOOD GAS ORDERABLES Performing Organization Address [facility] Co de Phone Number [facility] [address] [place] [address] * HEPATITIS A TOTAL ANTIBODY W REFLEX (10/17/2023 11:39 EDT) Hepatitis A Antibody, Total Negative Negative 10/17/2023 22:54 EDT [facility] Blood VENOUS BLOOD / Unknown 10/17/2023 11:39 EDT 10/17/2023 21:16 EDT Narrative [facility] - 10/17/2023 22:54 EDT The result of this assay can be falsely elevated (Positive) due to the consumption of Biotin. Provider Outr Resulting Lab CHEMISTRY & BLOOD GAS ORDERABLES [facility] [address] [place] [address] documented in this encounter Visit Diagnoses Not on filedocumented in this encounter Care Teams Spinning Room Worker Relationship Specialty Start Date End Date Chanel Tesfaye MD [address] [place] [phone] PCP - General 04/03/09 documented as of this encounter
--- OUTSIDE RECORDS SUMMARY | 2024-02-11 12:32 | XMS_ITS | Encounter Summary ---
Author Organization [facility] Address [address] [place] [address] Care Team Providers Care Earth Boring Machine Operator Name Role Phone Chanel Roca MD Primary Care Provider [phone] Encounter Details Date Type Department Care Team (Late st Contact Info) Description 10/28/2014 Results Only [facility] [phone] Dinah Morse MD [address] [place] [phone] Social History Tobacco Use Types Packs/Day Years [...] Date/Time Associated Diagnosis Comments SURGICAL PATHOLOGY Routine 10/28/2014 20 :44 EDT documented in this encounter Results * SURGICAL PATHOLOGY (10/28/2014 20:44 EDT) Pathology Report: SURGICAL PATHOLOGY REPORT Reports generated via electronic interface contain original data; however they are lacking the format of the original report. Caution should be taken when reading/interpreti ng unformatted reports. Name: ? FLOYD, SOO Del Cid ? Accession #: ? [id number] ? : ? 1985 (Age: 29) ??F ? Collect Date: ? 10/28/2014 ? Location: ? [facility] ? Receive Date: ? 10/28/2014 ? Provider: DINAH MORSE MD Copy to: CHANEL ROCA MD ? Final Pathologic Diagnosis: A. ??ENDOCERVIX, CURETTAGE: - Fragments of benign endocervical epithelium. B. ??CERVIX, 9 O'CLOCK, BIOPSY: - Low grade squamous intraepithelial lesion (VANCE I). ?? Document reviewed and electronically signed by: MAIKEL ARAGON MD Report ??Date: 11/01/2014 17:08 By the signature above, the attending physician certifies that he/she has personally conducted a gross and/or microscopic examination of the described specimens and rendered or confirmed the above diagnosis. Specimen(s) Received: A. ??ECC B. ??9 o'clock ectocervical biopsy Clinical History: LSIL, (+) HR HPV (1st abnl Pap); pt is S/P Gardasil x3 7-8 yrs ago; current iritis, spinal arthralgia, immune stressors Gross Description: A. ?Received in formalin labelled with proper patient identification (initials N, V) and endocx is an aggregate of orr-brown tissue fragments admixed with mucus (1.8 x 1.0 x 0.3 cm). Submitted in toto in A1. B. ?Received in formalin labelled with proper patient identification (initials N, V) and cx 9 o'clock is a single white-pink tissue fragment (0.4 x 0.4 x 0.1 cm). Submitted intact in B1. Ian Redmond 10/29/2014 09:20 AM End of Report [facility] 10/28/2014 20:4 4 EDT 10/28/2014 20:44 EDT Dinah Morse MD PATHOLOGY ORDERABLES [facility] [address] [place] [address] documented in this encounter Visit Diagnoses Not on filedocumented in this encounter Care Teams Earth Boring Machine Operator Relationship Specialty Start Date End Date Chanel Roca MD [address] [place] [phone] PCP - General 04/03/09 documented as of this encounter
--- OUTSIDE RECORDS SUMMARY | 2024-02-11 12:32 | XMS_ITS | Clinical Summary ---
Author Organization [facility] Address [address] [place] [address] Care Team Providers Care Tank Car Cleaner Name Role Phone Chanel Tesfaye MD Primary Care Provider [phone] Allergies Active Allergy Reactions Criticality Noted Date Comments Tioconazole 07/05/2014 swelling Medications Medication Sig Dispensed Refills Start Date End Date Status lisdexamfetamine (VYVANSE) 60 mg capsule Take 60 mg by mouth daily. Active buPROPion (WELLBUTRIN XL) 150 mg XL tablet Take 1 Tab by mouth daily. 30 Tab 0 07/21/2014 Active citalopram (CELEXA) 20 mg tablet Take 1 Tab by mouth daily. 30 Tab 0 07/21/2014 Active clonazePAM (KLONOPIN) 0.5 mg tablet Take 1 Tab by mouth 2 times daily as needed (anxiety). 1 Tab 0 07/21/2014 Active clonazePAM (KLONOPIN) 1 mg tablet Take 1 Tab by mouth at bedtime as needed (insomnia). 30 Tab 0 07/21/2014 Active ibuprofen (MOTRIN) 800 mg tablet Take 1 Tab by mouth every 6 hours as needed for Pain. 07/21/2014 Active sumatriptan (IMITREX) 50 mg tablet Take 1 Tab by mouth daily as needed for Migraine. 9 Tab 0 07/21/2014 Active zolpidem (AMBIEN) 5 mg tablet Take 1 Tab by mouth at bedtime as needed for Sleep. 30 Tab 0 07/21/2014 Active ondansetron (ZOFRAN-ODT) 4 mg disintegrating tablet Take 1 Tab by mouth every 4 hours as needed for Nausea. 30 Tab 0 07/21/2014 Active Active Problems Problem Noted Date Diagnosed Date Depression 07/14/2014 Suicidal ideations 07/14/2014 Panic disorder 07/14/2014 Encounters Date Type Department Care Team Description 12/05/2023 Lab Requisition [facility] Pathology & Laboratory Medicine [address] [address] Eliud Garcia MD Change in bowel habit; Melena from Last 3 Months Surgical History Surgery Date Site/Laterality Comments SECTION Social History Tobacco Use Types Packs/Day Years Used Date Smoking Tobacco: Former Cigarettes Q uit: 07/11/2014 Alcohol Use Standard Drinks/Week Comments Yes 0 (1 standard drink = 0.6 oz pur e alcohol) occ. Sex and Gender Information Value Date Recorded Sex Assigned at Not on file Gender Identity Not on file Sexual Orientation Not on file Obstetrics History Last Filed Vital Signs Vital Sign Reading Time Taken Comments Blood Pressure 102/58 07/21/2014 0850 EST Pulse 68 07/21/2014 0850 EST Temperature 36.5 ??C (97.7 ??F) 07/21/2014 0850 EST Respiratory Rate 14 07/21/2014 0850 EST Oxygen Saturation 98% 07/21/2014 0850 EST Inhaled Oxygen Concentration - - Weight 83.7 kg (184 lb 9.6 oz) 07/20/[address] Height 170.2 cm (5' 7) 07/13/2014 1504 EST Body Mass Index 28.91 07/13/2014 1504 EST Plan of Treatment Health Maintenance Due Date Last Done Comments Hepatitis B Vaccine (1 of 3 - 19+ 3-dose series) 06/04 COVID-19 Vaccine ( season) 2023 Hepatitis C Screen Completed 10/17/2023 Procedures Procedure Name Priority Date/Time Associated Diagnosis Comments SURGICAL PATHOLOGY Today 12/03/2023 8:53 EDT Change in bowel habit Melena HEPATITIS C AB W REFLEX TO HCV RNA BY PCR Routine 10/17/2023 11:39 EDT from Last 3 Months or Most Recently Relevant to Health Maintenance Results * SURGICAL PATHOLOGY (12/03/2023 8:53 EDT) Note to Patient The following pathology results have been interpreted by your pathologist and may be available to you before your health provider has had the opportunity to review them. Please allow time for your provider to receive these results and explore management options, if applicable. 12/09/2023 10:38 [facility] Final Diagnosis A. COLON, RANDOM, BIOPSIES: - Fragments of colonic mucosa with no significant histopathologic abnormalities. 12/09/2023 10:38 [facility] Diagnosis Comment The technical component of the specimen processing was performed at the [facility] Pathology Department, [address] [place] [address] (CLIA [id number]). The professional component of the specimen evaluation (slide review and issuing of the final diagnosis) was performed at [facility], [address] [place] [address] (CLIA License Number [id number]). 12/09/2023 10:38 [facility] Attestation By the signature below, the attending physician certifies that they have 1) personally conducted a gross and/or microscopic examination of the described specimen(s), and/or personally interpreted the results of laboratory testing of the described specimen(s), and 2) personally rendered or confirmed the above diagnosis. 12/09/2023 10:38 [facility] at 1038 Clinical History Elevated liver enzymes, NAFLD, nausea and vomiting, irregular bowels, dysphagia, marijuana use, hematochezia; clinical diagnosis code: K92.1, R19.4 12/09/2023 10:38 [facility] Gross Description A. Received in formalin labelled with proper patient identification (initials N, V) and A. Random colon biopsy are 2 orr-white to orr tissues (0.5 x 0.1 by less than 0.1 cm and 0.1 x 0.1 by less than 0.1 cm). Entirely submitted in A1. Please note the smaller tissue may not survive processing. Martha Myers 12/05/2023 9:50 12/09/2023 10:38 [facility] Performing Lab [facility] 10:38 [facility] Scanned Images 12/09/2023 10:38 [facility] Tissue COLON STRUCTURE / Unknown 12/03/2023 8:53 EDT 12/05/2023 8:40 EDT Eliud Garcia MD PATHOLOGY ORD ERABLES Performing Organization Address City/[facility]/ZIP Co de Phone Number [facility] [address] [place], [place] [address] * HEPATITIS C AB W REFLEX TO HCV RNA BY PCR (10/17/2023 11:39 EDT) Hep C Antibody Negative Negative 10/17/2023 22:53 EDT [facility] Blood VENOUS BLOOD / Unknown 10/17/2023 11:39 EDT 10/17/2023 21:16 EDT Provider Outr Resulting Lab CHEMISTRY & BLOOD GAS ORDERABLES Performing Organization Address City/[facility]/ZIP Co de Phone Number [facility] [address] [place], [place] [address] from Last 3 Months or Most Recently Relevant to Health Maintenance Advance Directives For more information, please contact: [phone] * Full Code (Latest Code Status on File) Date Activated Date Inactivated Comments 07/14/2014 17:08 07/21/2014 19:36 Question Answer Comments Reason for decision includes: Full code requested by fully informed patient Who participated in the discussion? Patient Care Teams Tank Car Cleaner Relationship Specialty Start Date End Date Chanel Tesfaye MD [address] [place] [phone] PCP - General 04/03/09
--- OUTSIDE RECORDS SUMMARY | 2024-02-11 12:32 | XMS_ITS | Encounter Summary ---
Author Organization [facility] Address [address] [place] [address] Care Team Providers Care Delinquent Tax Collection Assistant Name Role Phone Chanel Tesfaye MD Primary Care Provider [phone] Encounter Details Date Type Department Care Team (Late st Contact Info) Description 08/07/2023 Lab Requisition [facility] Pathology & Laboratory Medicine - [address] [address] Outr Resulting Lab, Provider Social History Tobacco [...] Procedure Name Priority Date/Time Associated Diagnosis Comments LH Routine 08/06/2023 15:12 EST FSH Routine 08/06/2023 15:12 EST documented in this encounter Results * LH (08/06/2023 15:12 EST) Luteinizing Hormone 2.1 See Note mIU/mL 08/07/2023 18:50 EST [facility] Comment: NOTE: Female Reference Ranges: Pre-Pubertal: ?<6.0 mIU/mL Menstruating: Follicular Phase(-12 to -4 days: ??1.9 - 12.5 mIU/mL Midcycle(-3 to +2 days): ?8.7 - 76.3 mIU/mL Luteal Phase(+4 to +12 days): ? 0.5 - 16.9 mIU/mL Post Menopausal: 15.9 - 54.0 mIU/mL Blood VENOUS BLOOD / Unknown 08/06/2023 15:12 EST 08/07/2023 17:26 EST Provider Outr Resulting Lab CHEMISTRY & BLOOD GAS ORDERABLES [facility] [address] [place] [address] * FSH (08/06/2023 15:12 EST) FSH 3.1 See Note mIU/mL 08/07/2023 18:49 EST [facility] Blood VENOUS BLOOD / Unknown 08/06/2023 15:12 EST 08/07/2023 17:26 EST Narrative [facility] - 08/07/2023 18:49 EST NOTE: Female FSH Reference Ranges (Menstruating): PHYSIOLOGICAL STATUS ? REFERENCE RANGE ? Follicular (-12 to -4 days): ?? 2.5 - 10.2 mIU/mL Midcycle (-3 to +2 days): ?3.4 - 33.4 mIU/mL Luteal (+4 to +12 days): ? 1.5 - 9.1 mIU/mL Postmenopausal: ?23.0 - 116.3 mIU/mL Reference Ranges for pediatric non-menstruating female patients have not been established. Provider Outr Resulting Lab CHEMISTRY & BLOOD GAS ORDERABLES [facility] [address] [place] [address] documented in this encounter Visit Diagnoses Not on filedocumented in this encounter Care Teams Delinquent Tax Collection Assistant Relationship Specialty Start Date End Date Chanel Tesfaye MD [address] [place] [phone] PCP - General 04/03/09 documented as of this encounter
--- OUTSIDE RECORDS SUMMARY | 2024-02-11 12:32 | XMS_ITS | Encounter Summary ---
Author Organization [facility] Address [address] [place] [address] Care Team Providers Care Ssis Developer Name Role Phone Chanel Tesfaye MD Primary Care Provider [phone] Encounter Details Date Type Department Care Team (Latest Contact Info) Description 07/17/2021 Lab Requisition [facility] Pathology & Laboratory Medicine - [facility] [address] [place] [address] Chanel Tesfaye MD [address] [place] [phone] Encounter for gynecological examination (general) (routine) without abnormal findings; Encounter for general adult medical examination without abnormal findings Social History Tobacco Use Types Packs/Day Years [...] Name Priority Date/Time Associated Diagnosis Comments PAP TEST Today 07/13/2021 3:00 EST Encounter for gynecological examination (general) (routine) without abnormal findings Encounter for general adult medical examination without abnormal findings HPV GENOTYPES 16 AND 18/45 Today 07/13/2021 3:00 EST Encounter for gynecological examination (general) (routine) without abnormal findings Encounter for general adult medical examination without abnormal findings HPV DNA DETECTION WITH GENOTYPING, PCR Today 07/13/2021 3:00 EST Encounter for gynecological examination (general) (routine) without abnormal findings Encounter for general adult medical examination without abnormal findings documented in this encounter Results * HPV GENOTYPES 16 AND 18/45 (07/13/2021 3:00 EST) HPV High Risk type 16, PCR Negative Negative 08/02/2021 14:56 EST [facility] HPV18/45 RNA (HPV18/45) Negative Negative 08/02/2021 14:56 EST [facility] Papanicolaou smear specimen (specimen) CERVIX UTERI STRUCTURE / Unknown 07/13/2021 3:00 EST 07/27/2021 10:57 EST Chanel Tesfaye MD MICROBIOLOGY - GENER AL ORDERABLES [facility] [address] [place] [address] * (ABNORMAL) HUMAN PAPILLOMAVIRUS (HPV) DETECTION-HIGH RISK TYPES (07/13/2021 3:00 EST) HPV other High Risk types, PCR Positive( A) Negative 08/02/2021 14:56 EST [facility] Comment:E6 OR E7 mRNA from o ne or more types of HPV types 16,18,31,33,35,39,45,51,52,56,58,59,66, and 68 is detected by roof bolter helper mediated amplification. High and intermediate risk HPV types are associated with most squamous intraepithelial lesions and cervical cancers. Papanicolaou smear specimen (specimen) CERVIX UTERI STRUCTURE / Unknown 07/13/2021 3:00 EST 07/27/2021 10:57 EST Chanel Tesfaye MD MICROBIOLOGY - GENER AL ORDERABLES [facility] [address] [place] [address] * PAP TEST (07/13/2021 3:00 EST) Specimens A. Cervix and/or Endocervix , ThinPrep Imaging System with Manual Evaluation 08/02/2021 14:56 [facility] Specimen Adequacy Satisfactory for Evaluation - transformation zone component present 08/02/2021 14:56 [facility] General Categorization Negative for intraepithelial lesion or malignancy 08/02/2021 14:56 [facility] Attestation . 08/02/2021 14:56 [facility] at 1456 Clinical History SEE BELOW 08/02/19 22 14:56 [facility] HPV The result for the Human Papillomavirus (HPV) Detection-High Risk Types is Positive . E6 OR E7 mRNA from one or more types of HPV types 16,18,31,33,35,39 ,45,51,52,56,58,5 9,66, and 68 is detected by roof bolter helper mediated amplification. High and intermediate risk HPV types are associated with most squamous intraepithelial lesions and cervical cancers. Testing was performed on specimen [id number] and was resulted on 07/30/2021 1452 EST by JAVIER, LAB INSTRUMENT RESULTS IN 08/02/2021 14:56 [facility] Genotyping 16 & 18/45 The results for the HPV Genotypes 16 and 18/45 are Negative for the HPV16 RNA and Negative for the HPV18/45 RNA (HPV18/45). Testing was performed on specimen [id number] and was resulted on 08/02/2021 1437 EST by JAVIER, LAB INSTRUMENT RESULTS IN 08/02/2021 14:56 EST [facility] Performing Lab [facility] 08/02/2021 14:56 EST [facility] Scanned Images 08/02/2021 14:56 EST [facility] Papanicolaou smear specimen (specimen) CERVIX UTERI STRUCTURE / Unknown 07/13/2021 3:00 EST 07/17/2021 9:18 EST Chanel Tesfaye MD PATHOLOGY ORDERABLES Performing Organization Address City/State/[facility] Co de Phone Number [facility] [address] [place] [address] documented in this encounter Visit Diagnoses Diagnosis Encounter for gynecological examination (general) (routine) without abnormal findings Encounter for general adult medical examination without abnormal findings Unspecified general medical examination documented in this encounter Care Teams Ssis Developer Relationship Specialty Start Date End Date Chanel Tesfaye MD [address] [place] [phone] PCP - General 04/03/09 documented as of this encounter
--- OUTSIDE RECORDS SUMMARY | 2024-02-11 12:32 | XMS_ITS | Encounter Summary ---
Author Organization [facility] Address [address] [place] [address] Care Team Providers Care Acute Care Clinical Nurse Specialist Name Role Phone Chanel Tesfaye MD Primary Care Provider [phone] Encounter Details Date Type Department Care Team (Latest Contact Info) Description 05/22/2020 Lab Requisition [facility] Pathology & Laboratory Medicine - [facility] [address] [place] [address] Chanel Tesfaye MD [address] [place] [phone] Encounter for general adult medical examination without abnormal findings; Encounter for screening for malignant neoplasm of cervix; Encounter for screening for human papillomavirus (HPV) Social History Tobacco Use Types Packs/Day Years [...] Date/Time Associated Diagnosis Comments PAP TEST Today 05/19/2020 10:20 EST Encounter for general adult medical examination without abnormal findings Encounter for screening for malignant neoplasm of cervix Encounter for screening for human papillomavirus (HPV) HPV GENOTYPES 16 AND 18/45 Today 05/19/2020 10:20 EST Encounter for general adult medical examination without abnormal findings Encounter for screening for malignant neoplasm of cervix Encounter for screening for human papillomavirus (HPV) HPV DNA DETECTION WITH GENOTYPING, PCR Today 05/19/2020 10:20 EST Encounter for general adult medical examination without abnormal findings Encounter for screening for malignant neoplasm of cervix Encounter for screening for human papillomavirus (HPV) documented in this encounter Results * HPV GENOTYPES 16 AND 18/45 (05/19/2020 10:20 EST) HPV High Risk type 16, PCR Negative Negative 06/01/2020 14:47 EST [facility] HPV18/45 RNA (HPV18/45) Negative Negative 06/01/2020 14:47 EST [facility] Papanicolaou smear specimen (specimen) CERVIX UTERI STRUCTURE / Unknown 05/19/2020 10:20 EST 05/25/2020 14:35 EST Chanel Tesfaye MD MICROBIOLOGY - GENER AL ORDERABLES [facility] [address] [place] [address] * (ABNORMAL) HUMAN PAPILLOMAVIRUS (HPV) DETECTION-HIGH RISK TYPES (05/19/2020 10:20 EST) HPV other High Risk types, PCR Positive( A) Negative 06/01/2020 14:47 EST [facility] Comment:E6 OR E7 mRNA from o ne or more types of HPV types 16,18,31,33,35,39,45,51,52,56,58,59,66, and 68 is detected by technical sales support specialist mediated amplification. High and intermediate risk HPV types are associated with most squamous intraepithelial lesions and cervical cancers. Papanicolaou smear specimen (specimen) CERVIX UTERI STRUCTURE / Unknown 05/19/2020 10:20 EST 05/25/2020 14:35 EST Chanel Tesfaye MD MICROBIOLOGY - GENER AL ORDERABLES [facility] [address] [place] [address] * PAP TEST (05/19/2020 10:20 EST) Specimens A. Cervix and/or Endocervix , ThinPrep Imaging System with Manual Evaluation 06/01/2020 14:47 [facility] Specimen Adequacy Satisfactory for Evaluation - transformation zone component present 06/01/2020 14:47 [facility] General Categorization Negative for intraepithelial lesion or malignancy 06/01/2020 14:47 [facility] Attestation . 06/01/2020 14:47 [facility] at 1447 Clinical History See below 06/01/20 20 14:47 [facility] HPV The result for the Human Papillomavirus (HPV) Detection-High Risk Types is Positive . E6 OR E7 mRNA from one or more types of HPV types 16,18,31,33,35,39 ,45,51,52,56,58,5 9,66, and 68 is detected by technical sales support specialist mediated amplification. High and intermediate risk HPV types are associated with most squamous intraepithelial lesions and cervical cancers. Testing was performed on specimen [id number] and was resulted on 05/31/2020 0935 EST by JAVIER, LAB INSTRUMENT RESULTS IN 06/01/2020 14:47 [facility] Genotyping 16 & 18/45 The results for the HPV Genotypes 16 and 18/45 are Negative for the HPV16 RNA and Negative for the HPV18/45 RNA (HPV18/45). Testing was performed on specimen [id number] and was resulted on 06/01/2020 1444 EST by JAVIER, LAB INSTRUMENT RESULTS IN 06/01/2020 14:47 EST [facility] Performing Lab [facility] 06/01/2020 14:47 EST [facility] Scanned Images 06/01/2020 14:47 EST [facility] Papanicolaou smear specimen (specimen) CERVIX UTERI STRUCTURE / Unknown 05/19/2020 10:20 EST 05/22/2020 13:05 EST Chanel Tesfaye MD PATHOLOGY ORDERABLES [facility] [address] [place] [address] documented in this encounter Visit Diagnoses Diagnosis Encounter for general adult medical examination without abnormal findings Unspecified general medical examination Encounter for screening for malignant neoplasm of cervix Screening for malignant neoplasm of the cervix Encounter for screening for human papillomavirus (HPV) Special screening examination for human papillomavirus (HPV) documented in this encounter Care Teams Acute Care Clinical Nurse Specialist Relationship Specialty Start Date End Date Chanel Tesfaye MD [address] [place] [phone] PCP - General 04/03/09 documented as of this encounter
--- OUTSIDE RECORDS SUMMARY | 2024-02-11 12:32 | XMS_ITS | Encounter Summary ---
Author Organization [facility] Address [address] [place] [address] Care Team Providers Care Diesel Locomotive Firer/Fireman Name Role Phone Chanel Roca MD Primary Care Provider [phone] Encounter Details Date Type Department Care Team (Late st Contact Info) Description 12/01/2017 Results Only [facility] [phone] Chanel Roca MD [address] [facility] [address] [place] [phone] Social History Tobacco Use Types [...] Diagnosis Comments PAP TEST- RESULT ONLY Routine 12/01/2017 0:00 EDT documented in this encounter Results * PAP TEST- RESULT ONLY (12/01/2017 0:00 EDT) Pathology Report: CYTOPATHOLOGY REPORT Reports generated via electronic interface contain original data; however they are lacking the format of the original report. Caution should be taken when reading/interpreti ng unformatted reports. Name: ? SOO ASHTON ? Accession #: ? [id number] ? : ? 1985 (Age: 32) ??F ?Collect Date: ? 12/01/2017 ? Location: ? [facility] ? Receive Date: ? 12/03/2017 ? Provider: CHANEL ROCA MD Copy to: ? Final Report SPECIMEN ADEQUACY ? Satisfactory for Evaluation - transformation zone component present GENERAL CATEGORIZATION ? Negative for Intraepithelial Lesion or Malignancy ?? Last Menstrual Period: 2017 Previous Gynecologic Pathology: VANCE I: 2014 Infection History: Pos for HRHPV Other: Previous NIL Pap(s): 04/2016 Additional clinical information: Z00.00, Z12.4, Z11.51 Specimen/Source: ??Pap Test, Cervix, ThinPrep Imaging System with manual evaluation Document reviewed and electronically signed by: ? Emily Carroll, [place](ASCP) ? Report ??Date: 12/11/2017 12:39 HPV with Pap Test ? Date Ordered: ? 12/29/2017 ? Status: ?? Signed Out ?Date Complete: ? 12/30/2017 ? By: ??System Interface ? Date Reported: ? 12/30/2017 ? Interpretation RESULT: Negative for HPV. No E6 or E7 mRNA is detected from HPV types 16,18,31,33,35, 39,45,51,52,56,58, 59,66, and 68 by inbound customer service representative mediated amplification. Comments Document reviewed and electronically signed by: ? System Interface ? Report date: 12/30/2017 By the signature above, the attending physician certifies that he/she has personally conducted a gross and/or microscopic examination of the described specimens and rendered or confirmed the above diagnosis. End of Report [facility] 12/01/2017 12/03/2017 Chanel Roca MD PATHOLOGY ORDERABLES Performing Organization Address City/State/[facility] Co de Phone Number [facility] [address] [place] [address] documented in this encounter Visit Diagnoses Not on filedocumented in this encounter Care Teams Diesel Locomotive Firer/Fireman Relationship Specialty Start Date End Date Chanel Roca MD [address] [place] [phone] PCP - General 04/03/09 documented as of this encounter
--- OUTSIDE RECORDS SUMMARY | 2024-02-11 12:32 | XMS_ITS | Encounter Summary ---
Author Organization [facility] Address [address] [place] [id number] Care Team Providers Care Mold Engraver Name Role Phone Chanel Tesfaye MD Primary Care Provider [phone] Encounter Details Date Type Department Care Team (Latest Contact Info) Description 10/28/2014 9:49 EDT - 10/28/2014 23:59 EDT Hospital Encounter [address] [address] Unknown, Provider, Discharge Disposition: Home or Self [...] Code Departure Means Destination Home or Self Alf documented in this encounter Plan of Treatment Not on file documented as of this encounter Visit Diagnoses Not on filedocumented in this encounter Care Teams Mold Engraver Relationship Specialty Start Date End Date Chanel Tesfaye MD [address] [place] [phone] PCP - General 04/03/09 documented as of this encounter
--- OUTSIDE RECORDS SUMMARY | 2024-02-11 12:32 | XMS_ITS | Encounter Summary ---
Author Organization [facility] Address [address] [place] [id number] Care Team Providers Care Hvac Project Manager Name Role Phone Chanel Roca MD Primary Care Provider [phone] Encounter Details Date Type Department Care Team (Late st Contact Info) Description 12/04/2009 Results Only [facility] Services - [facility] ([facility] [address] [place], [place] [phone] Kwame Haines MD [address] [place] [phone] Social History Tobacco Use Types Packs/Day Years Used Date Smoking Tobacco: Never Assessed Sex and Gender Information Value Date Recorded Sex Assigned at Not on file Gender Identity Not on file Sexual Orientation Not on file documented as of this encounter Plan of Treatment Not on file documented as of this encounter Procedures Procedure Name Priority Date/Time Associated Diagnosis Comments CYTOPATHOLOGY Routine 12/04/2009 0:00 EDT documented in this encounter Results * CYTOPATHOLOGY (12/04/2009 0:00 EDT) Pathology Report: CYTOPATHOLOGY REPORT ? Reports generated via electronic interface contain original data; ? however they are lacking the format of the original report. ? Caution should be taken when reading/interpreti ng unformatted reports. ? Name: ? NORWAY, SOO Del Cid ? Accession #: ? [id number] ? : ? 1985 (Age: 24) ??F ?Collect Date: ? 12/04/2009 ? Location: ? [facility] ? Receive Date: ? 12/06/2009 ? Provider: ?KWAME HAINES MD ? Copy to: ?CHANEL ROCA MD ? Specimen/Source: ?Pap Test, Vagina/Cervix/Endo cervix, ThinPrep Imaging ? System with manual evaluation ? Last Menstrual Period: ? Menstrual/Pregnanc y Status: ? Post : ? Hormonal/Contracep tive Status: ? Yes: [place]ronor ? Previous Gynecologic Pathology: ? HPV: + H/o ? Other: ? Additional clinical information: 1st pap this office. (08/09 last pap elsewhere) ? SPECIMEN ADEQUACY ? Satisfactory for Evaluation ? - transformation zone component present ? GENERAL CATEGORIZATION ? Negative for Intraepithelial Lesion or Malignancy ? Document reviewed and electronically signed by: ? Sonya Pope, CT(ASCP) ? Report Date: ??12/11/2009 12:54 ? End of Report ? [facility] 12/04/2009 12/06/2009 Kwame Haines MD PATHOLOGY ORDERABLES [facility] [address] [place] [address] documented in this encounter Visit Diagnoses Not on filedocumented in this encounter Care Teams Hvac Project Manager Relationship Specialty Start Date End Date Chanel Roca MD [address] [place] [phone] PCP - General 04/03/09 documented as of this encounter
--- OUTSIDE RECORDS SUMMARY | 2024-02-11 12:32 | XMS_ITS | Encounter Summary ---
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 does not want the prn ambienor clonzepam just yet and will let us know when she is ready for those. Action: Supportive listening. Encourage groups. Monitor for Safety. Offer medications as ordered and monitor for any side effects. Encourage patient to utilize positive coping techniques. Continue toassess mood, affect, pain. Offer 1:1 support as needed. Response: pleasant, somewhat latent but overall calm and no self harm or self harm statements. No c/o any audio or visual hallucinations. Not complaining of pain. Becka Gibbons RN 07/16/2014 22:44 * Plan of Care - Agnes Newell RN - 07/16/2014 1853 EST Problem: ELIMINATION Goal: Bowel function will return to baseline pattern by discharge Outcome: Ongoing Data: Patient has c/o constipation for past 4-5 days. Reports no relief as yet from bowel medications received already. Drinking fluids. I'd like a suppository. I've already had a hemorrhoidectomy.Admits to pain in upper right shoulder/back area of 5-6 out of 10. Given heat wrap and alternated with tylenol and ibuprofen with no reported relief. Attended group. Has been in activity room all shift thus far and worked on finishing a [employer] project. Pleasant in brief conversations. Action: Encourage increase in fluid intake, not to push when having BM. Response: Patient reported having had a bowel movement and does not need a suppository at this time. Agnes Newell RN 07/16/2014 18:45 * Plan of Care - Michelle Casey RN - 07/16/2014 1537 EST Problem: ALTERED THOUGHT PROCESSES Goal: Desires Improvement In Ability To Think & Concentrate Data: Pt. is currently on Frequents, L 3, and Voluntary. Pt denies SI, HI, and AVH. Pt up early, sitting in activity room with phone, states she is anxious about parents coming to visit later today. Requested and received PRN Betsey @ 0811. Pt reports back and shoulder pain, 11/23, Ibuprofen requested and given with morning meds. Reported little to no relief in pain, states it???s usually at a constant pain. Pt still has not had a BM, Colace and Miralax given. Pt found out that her GF has had unprotected sex with multiple partners and was not tested, pt requested to get tested for STDs as this is increasing her anxiety. Dr. Hurley notified and has ordered labs. Action: Engaged with pt., 1:1, offered support. Assess for mood, affect, behavior, and pain. Encouraged ADLs. Medication offered as ordered. Monitored for safety. Response: Pt. is pleasant and cooperative upon interactions. Behavior kept in control without any outburst. Pt is med complaint and social with peers. Pt attend art and meditation group. Pt states the first part of meditaion group was relaxing but the second part, she was very sad and tearful. Pt was told to find a place of comfort as a child and as pt was upset due to flashback of her past. Pt visited with parents from mid-morning through afternoon. Pt states ???I didn???t want to go deep???stayed very basic?? pt states she doesn???t know if she trusts her parents. Pt. remained safe while on the unit. Will continue to monitor for safety. Michelle Casey RN 07/16/2014 15:37 * Plan of Care - Kia Girard RN - 07/16/2014 0609 EST Problem: ALTERATION IN SLEEP Goal: Reports Nightly Sleep, Duration And Quality Data: Pt slept throughout the night without c/o pain or voicing unmet needs Action:Frequent observation Response: As of 0600, pt slept 6.5 hrs this shift Kia Girard RN 07/16/2014 6:08 * Psych Treatment Team - Sanjuana Nelson RN - 07/15/2014 7338 EST Psychiatry Multidisciplinary Treatment Plan - Initial Date: 07/15/2014 Time: 22:59 Date of Admission: 07/14/2014 Legal Status: Voluntary Estimated LOS: 10 days Infection Control Issue: No DIAGNOSIS: AXIS I: Principal DX: 311 Depression NOS. [facility] Guideline: 5 days AXIS II: Deferred AXIS III: Patient Active Problem List (H)Panic disorder Priority: Medium (2) Date Noted: 07/14/2014 (H)Depression Date Noted: 07/14/2014 (H)Suicidal ideations Date Noted: 07/14/2014 AXIS IV: Stressors: marriage break up, separation from her children AXIS V: On Admission: 30 AXIS V: Highest in past year: 65 Patient's Strengths: Intelligence, Invested in/accepting treatment, Established outpatient treatment team and Previous high level of functioning Patient's Weaknesses: Family history of psychiatric illness, Traumatic history and Vulnerability topsychological stress 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 Note Type: Initial PROBLEM LIST: PROBLEM: Depression Depression target symptoms: low mood, sleep alteration, diminished interest/pleasure, social isolation, reduced energy, SI, hopelessness and helplessness Depression initial goals: reduction in target symptoms, tolerance of medication and engagement in psychotherapy sessions PROBLEM: SI/Self injury Self injury target symptoms: feelings of worthlessness, hopelessness, helplessness and suicidal thoughts Self injury initial goals: reduction in target symptoms, decreased SI/self-harm and improved copingskills PROBLEM: Insomnia Insomnia target symptoms: initial insomnia, middle insomnia and terminal insomnia Insomnia initial goals: congregational of normal sleep pattern PROBLEM: Psychosocial problems Psychosocial problems symptoms: losses and marital discord Psychosocial problems initial goals: reduction of target symptoms, implementation of new coping skills, attend groups, identifying supportive resources and strengthening of supports TREATMENT PLAN: MEDICAL INTERVENTIONS: Psychiatric Evaluation, Labratory Work-up, Physical Evaluation, Daily contact with patient for Evaluation and Management, Daily meeting with multidisciplinary team to review patient's progress, Pharmacological Management and Individual psychotherapy, 30 minutes, up to 3 timesper week. MEDICAL EXPECTED OUTCOMES AT TIME OF DISCHARGE: Diagnostic clarification, No suicidal ideation, Reduction of target symptoms, enough to safely transition to a less restrictive level of care. and Adequate initial clinical response to pharmacological treatment NURSING INTERVENTIONS: Behavioral/health assessment, daily, Pain assessment/management, daily, Assess need for observations, Monitoring of sleep/activity daily, Administer medications as per physicians order, Monitoring side-effects from medications daily, Education (See patient teaching record), Promotion of independence upon every interaction, Provision of structure and orientation in the environment of care upon every contact, Ensure safety in the environment of care throughout the 24 hr period, Stimulate participation in groups and Supportive counseling daily NURSING EXPECTED OUTCOMES AT TIME OF DISCHARGE: Patient eats and drinks sufficient quantities, Patient remains in bed during normal sleep hours, Patient reports adequate relief of pain, Patient adheres to pharmacotherapy as ordered, Patient reports adequate understanding of medication regimen, Patient performs ADLs independently, Patient out of room, engaged with others during daytime hours, Patient interacts with others in socially appropriate manner, Patient refrains from verbal aggression, Patietn refrains from physical aggression, Patient refrains from self-harm behavior, Patient reports reduction in suicidal ideation, Patient attends group therapy sessions and Patient engages in dischar ge planning PSYCHOLOGICAL INTERVENTIONS: PROCESS GROUPS: Cognitive group therapy, up to 1 hour 2 times per week and Group therapy, up to 1 hour 2 times per week EDUCATION GROUP: Up to 1 hour 10 times per week TASKS GROUPS: Up to 1 hour 5 times per week PSYCHOLOGICAL EXPECTED OUTCOMES AT TIME OF DISCHARGE: Accepted responsibility for maladaptive behavior, Developed coping strategies/skills, Identified feelings, Improved self-esteem, Increased awareness of self in relation to others, Increased self-control and Increased knowledge about own illness SOCIAL INTERVENTIONS: Discharge planning, Collaboration with outpatient providers, Evaluation of living situation and Collaboration with family/support network if allowed by patient SOCIAL EXPECTED OUTCOMES AT TIME OF DISCHARGE: Outpatient referrals/follow-up appointments in place, Coordination of transportation from hospital to home is ensured, Support network identified, Support network informed of reasons for hospitalization, Client's strengths identified, Improved communication among the support network, Plan of aftercare communicated to providers and other support network, Family/couples intervention ensuring safe discharge is completed and Client can articulate strengths and goals PCP:Chanel Tesfaye MD Treatment Team Members Resident MD: n/a RN:Anais Sesay RN Therapist: KWAME CHESTER (AT) Hoof Trimmer: Bjorn Alcaraz PharmD: Patient Involvement This Treatment Plan was discussed with the patient/guardian. Attending physician statement/signature: Based on the information documented in this Initial Multidisciplinary Treatment Plan and in the medical record, I certify that: ?? This patient meets medical necessity criteria and requires acute inpatient psychiatric treatment, as evidenced by the documentation in this document of the diagnosis, active problems, target symptoms, initial goals, suggested diagnostic studies, interventions and expected outcomes at the time ofdischarge. ?? I hereby certify having a reasonable expectation that this patient has acute medical/psychiatricneeds which will require that he or she receives inpatient services for no less than two midnights. ?? This patient needs, on a daily basis, active treatment furnished directly by or requiring the supervision of inpatient psychiatric facility personnel. Treatment is expected to improve this patient's condition. AGNES DURHAM MD Attending Psychiatrist * Plan of Care - Becka Gibbons RN - 07/15/20142120 EST Problem: ALTERED THOUGHT PROCESSES Goal: Desires Improvement In Ability To Think & Concentrate Outcome: Ongoing Data: Soo has spent much of the evening out in the milieu sitting at the table doing an art project. She has been using colored markers to color two fabric bears. She says they are for her children. Affect somewhat irritable and appears preoccupied in thought. Latent verbal responses noted. Made some sarcastic comments to staff when she was asked how would she like to take the Topamax sprinkles and offered that they could be put in juice, water or food and she said, well, how do you think? and laughed but explained to her the options and she said she will swallow the capsules whole. She complained of #5 right shoulder pain which did not subside after taking ibuprofen at her request at 1735. She also complained that she still has not moved her bowels yet (stated she received miralax at lunchtime today and thought she should get some more). Notified Dr. Pa and senna tabs added.She was offered prn colace given @ 1736 and senna tabs @ bedtime. Nicotine patch removed. She has asked for prn Dia drake, notified Dr. Pa. No order as of bedtime, paged information strategist resident, Dia ordered and will offer to patient for sleep. She had her urine collected and sent to lab for test and result from lab is negative. She also had her ekg done and results forwarded to Dr. Pa. Pt has not complained of chest pain or shortness of breath but continues with c/o discomfort in her right shoulder and currently declined any intervention. Her constant observation was d/c'd and she is on frequent checks Q15 minutes. She ate her dinner in the dining room. No SI/HI statements.She made some disjointed statements about her valuables. She was coloring the bears and asked if I could find stamps to mail her valuables. When asked further about this she then stated she didn't have any valuables anymore and continued coloring the bears. Action: on frequent checks as ordered Q15 min. Urine sent to lab for test. Ekg done. Prn ibuprofen for right shoulder pain. Prn colace and senna Response: still out in the milieu, chatting with peer and organizing the markers, and stated I'll just continue with my OCD arranging of the markers. Addendum: prn ambien for sleep and clonazepam prn at pt request as she states she hopes to be able to relax and sleep (see mar). Suggested to her that she get into bed rightaway after the medication given to help the medication to work. Addendum: Soo was able to fall asleep after receiving the prn ambien and clonazepam and appearsto be comfortably sleeping at present. Becka Gibbons RN 07/15/2014 21:02 * Plan of Care - Laura Holder, VANESSA - 07/15/2014 1313 EST Problem: POTENTIAL FOR HARM TO SELF OR OTHERS Goal: Denies Harm Toward Self Or Others Outcome: Ongoing Data: Pt presents as somewhat reticent and withdrawn this morning. Poor eye- contact with restrictedaffect and soft monotone voice. States she has had no S/I since being here and only feels sad. Made no eye-contact while saying this and did not elaborate on prompting. She c/o constipation and requested that she be able to use the bathroom without being watched. Action: Provided opportunity for therapeutic interaction; monitored for safety, pain and anxiety; medicated per MAR; encouraged participation in groups and milieu. Response: Pt remains safe on the unit and received PRN Miralax around noon with no results, yet. Affect has brightened since this morning and pt went to both morning groups. She has been out in milieu, more talkative with staff, though superficial and has been tending to her ADL's. Continues to deny S/I. Laura Holder RN 07/15/2014 13:00 * Plan of Gaby - Estrella Washington RN - 07/15/2014 0621 EST Problem: ALTERATION IN SLEEP Goal: Reports Nightly Sleep, Duration And Quality Outcome: Ongoing Data: Pt awake at start of shift. She received 0.5 klonopin prn per request for sleep at 2334. Pt remained awake. She requested additional medication. Discussed with Dr Hoyos who ordered 5mg ambien given at 0231. Pt fell asleep shortly after receiving medication and remained asleep for the remainder of shift. Total sleep this shift 5 hrs. Action: monitor for safety on constant obs, medications per order Response: stable, remains safe this shift. Initial insomnia, but responded well to ambien. Estrella Washington RN 07/15/2014 6:18 * Plan of Care - Estrella Washington RN - 07/14/2014 4729 EST Problem: POTENTIAL FOR HARM TO SELF OR OTHERS Goal: Denies Harm Toward Self Or Others Outcome: Ongoing Data: Pt arrived on unit at change of shift. She is calm and quiet. Pt talks in a soft spoken voiceand is somewhat regressed in her manner. She has c/o increasing migraine 3/10 and requests medication for migraine and nausea. Pt was given immitrex 50mg and zofran po. H/A remains at 3/10 for the remainder of shift. Pt also has c/o R side shoulder and trunk area pain which she says has been there for the past 3 wks. Pt requests motrin 400mg given later in shift at 2123. Pt is not forthcoming when first assessed about feeling suicidal but then when she is requesting to not be monitored in bathroom she states later that she does not have intent to harm herself. Pt while on 1:1 must be watched while in the bathroom. Pt's GF into visit and took home pt license, ramos card, gift card and medications per pt request. Pt reports that she does not currently have a home and that she stays with GF Gissel, other friends and where her children live with their father in [place]. Pt received colace prnfor constipation. She reports she has not had a BM in 3 days. Action: monitor for safety on 1:1, assess for pain, assess for SI, 1:1 supportive interaction, tourof unit, VS, nursing database Response: Pt remains on 1:1 for safety and has remained safe on the unit this shift. Estrella Washington RN 07/14/2014 22:04 documented in this encounter Plan of Treatment Not on file documented as of this encounter Procedures Procedure Name Priority Date/Time Associated Diagnosis Comments ECG REPORT - SCANNED 07/25/2014 11:38 EST ECG REPORT - SCANNED 07/21/2014 13:46 EST CHLAMYDIA/N. GONORRHOEAE AMPLIFIED RNA, URINE Routine 07/18/2014 6:03 EST HIV 1/2 ANTIGEN AND ANTIBODY, 4TH GENERATION Routine 07/17/2014 11:24 EST INPATIENT ADD-ON Routine 07/16/2014 15:5 5 EST TEST, URINE Routine 07/15/2014 17:05 EST EKG 12-LEAD Routine 07/15/2014 16:52 EST CHLAMYDIA/N. GONORRHOEAE AMPLIFIED RNA, URINE Routine 07/15/2014 16:43 EST DRUG SCREEN 6 STAT 07/13/2014 18:41 EST COMPLETE BLOOD COUNT AND DIFFERENTIAL STAT 07/13/2014 18:41 EST BUN STAT 07/13/2014 18:41 EST TSH STAT 07/13/2014 18:41 EST GLUCOSE, SERUM STAT 07/13/2014 18:41 EST CREATININE STAT 07/13/2014 18:41 EST ELECTROLYTES STAT 07/13/2014 18:41 EST documented in this encounter Results * ECG REPORT - SCANNED (07/25/2014 11:38 EST) 07/25/2014 11:3 8 EST Scan 2 Abrasive Wheel Molder PROCEDURE/MINOR LUCY GICAL ORDERABLES * ECG REPORT - SCANNED (07/21/2014 13:46 EST) 07/21/2014 13:4 6 EST Scan 2 Abrasive Wheel Molder PROCEDURE/MINOR LUCY GICAL ORDERABLES * CHLAMYDIA/GC AMPLIFIED, URINE (07/18/2014 6:03 EST) Specimen Description Urine 07/18/2014 7:41 EST [facility] Comment: First voided urine optimal, volume greater than 30 mls may cause false negatives. Chlamydia Result No Chlamydia trachomatis DNA detected by salesforce trainer mediated amplification. 07/18/2014 15:46 EST [facility] Comment: A first catch urine specimen is acceptable for detection of Gonorrhea and Chlamydia, but might detect up to 10% fewer infections when compared with vaginal and endocervical swab samples. GC Result No Neisseria gonorrhoeae DNA detected by salesforce trainer mediated amplification. 07/18/2014 15:46 EST [facility] Comment: A first catch urine specimen is acceptable for detection of Gonorrhea and Chlamydia, but might detect up to 10% fewer infections when compared with vaginal and endocervical swab samples. Specimen of unknown material (specimen) URINE / Unknown 07/18/2014 6:03 EST 07/18/2014 7:40 EST Isabella Ballard DO MICROBIOLOGY - GENER AL ORDERABLES [facility] [address] [place] [address] * HIV 1/2 ANTIBODY (07/17/2014 11:24 EST) HIV 1/2 Antibody Negative 07/18/19 15 9:52 EST [facility] Comment: If acute HIV-1 infection is suspected in a high risk patient, submit plasma specimen for HIV-1 RNA quantification test. Reference Range: ??Negative Assayed utilizing YOLLEGE chemiluminescent technology. Blood specimen (specimen) BLOOD SPECIMEN / Unknown 07/17/2014 11:24 EST 07/17/2014 11:32 EST Isabella Ballard DO IMMUNOLOGY AND SEROL OGY ORDERABLES Performing Organization Address [facility] de Phone Number [facility] [address] [place] [address] * INPATIENT ADD-ON (07/16/2014 15:55 EST) Tests to be added GONORRHEA AND CHLAMYDIA TO URINE SAMPLE ON 07/1607/16/2014 15:53 EST [facility] Number for problems [id number] 07/16/2014 15:58 EST [facility] Accession number [id number] 07/16/2014 15:58 EST [facility] TOPOGRAPHY UNKNOWN / Unknown 07/16/2014 15:55 EST 07/16/2014 15:56 EST Radha Hurley MD HEMATOLOGY & PF4 ORD ERABLES Performing Organization Address [facility] de Phone Number [facility] [address] [place] [address] * TEST, URINE (07/15/2014 17:05 EST) Result- Test, Ur Neg Neg 07/15/2014 17:36 EST [facility] Comment: NOTE: False negative results may occur in women who are beyond 5-8 weeks gestation. Diagnosis of should be based on a correlation of test results with typical clinical signs and symptoms. Urine specimen (specimen) URINE / Unknown 07/15/2014 17:05 EST 07/15/2014 17:23 EST Ramona Jack MD URINALYSIS ORDERA BLES Performing Organization Address [facility] Co de Phone Number [facility] [address] [place] [address] * EKG 12-LEAD (07/15/2014 16:52 EST) 07/15/2014 16:5 2 EST Narrative [facility] EKG - 07/19/2014 10:44 EST ? [facility] ? Test Date: ?2014-07-15 Pat Name: ? SOO NORWAY ? Department: ?? [address] ? Room: ? SP318 Gender: ? F ?Vacuum Caster: ?? [id number] : ?1985 ? Requested By: RAMONA JACK MD Order Number: [id number] ? Reading MD: ?? QUINN MENJIVAR MD ? Measurements Intervals ?[place] ? Rate: ? 80 ? P: ?47 UT: ? 139 ?QRS: ?50 QRSD: ? 94 ? T: ?37 QT: ? 361 ? QTc: ?417 ? Interpretive Statements SINUS RHYTHM POSSIBLE LEFT ATRIAL ENLARGEMENT POSSIBLE RIGHT VENTRICULAR CONDUCTION DELAY No previous ECG available for comparison I reviewed the tracing and have either agreed or edited the findings in this report. Electronically Signed On 07-19-14 10:44:41 EST by QUINN MENJIVAR MD. Procedure Note Quinn Menjivar MD - 07/19/2014 [facility] Test Date: 2014-07-15 Pat Name: SOO GORHAM Department: [address] Room: [facility] Gender: F Vacuum Caster: [id number] : 1985 Requested By: RAMONA SCOTT Order Number: [id number] Reading MD: QUINN MENJIVAR MD Measurements Intervals [place] Rate: 80 P: 47 UT: 139 QRS: 50 QRSD: 94 T: 37 QT: 361 QTc: 417 Interpretive Statements SINUS RHYTHM POSSIBLE LEFT ATRIAL ENLARGEMENT POSSIBLE RIGHT VENTRICULAR CONDUCTION DELAY No previous ECG available for comparison I reviewed the tracing and have either agreed or edited the findings inthis report. Electronically Signed On 07-19-14 10:44:41 EST by QUINN ARTEAGA. Ramona Jack MD CARDIAC ECG ORDER EZEQUIEL [facility] EKG * CHLAMYDIA/GC AMPLIFIED, URINE (07/15/2014 16:43 EST) Specimen Description Urine 07/16/2014 16:43 EST [facility] Chlamydia Result Unable to perform Molecular Microbiology Assays, because sample was previously used for other laboratory testing. This sample could be contaminated, creating the potential for false positive or negative results. 07/16/2014 16:45 [facility] Comment:Credit Issued GC Result Unable to perform Molecular Microbiology Assays, because sample was previously used for other laboratory testing. This sample could be contaminated, creating the potential for false positive or negative results. 07/16/2014 16:45 [facility] Comment:Credit Issued URINE / Unknown 07/15/2014 1 6:43 EST 07/16/2014 16:43 EST Agnes Durham MD MICROBIOLOGY - GEN ERAL ORDERABLES [facility] [address] [place] [id number] * DRUG SCREEN 6 (07/13/2014 18:41 EST) Amphetamine Screen, Urine Negative screen. 07/13/2014 19:25 [facility] Comment: Confirmation testing available upon request. Suitable for medical purposes only. Will not detect all drugs within class. Cutoff = 1000 ng/ml Specimen type is urine. Barbiturate Screen, Urine Negative screen. 07/13/2014 19:25 [facility] Comment: Confirmation testing available upon request. Suitable for medical purposes only. Will not detect all drugs within class. Cutoff = 300 ng/ml Specimen type is urine. Benzodiazepine Screen, Urine Negative screen. 07/13/2014 19:25 [facility] Comment: Confirmation testing available upon request. Suitable for medical purposes only. Will not detect all drugs within class. Assay less sensitive to Lorazepam and metabolites. Cutoff = 200 ng/ml Specimen type is urine. Cannabinoid Scrn, Ur Negative screen. 07/13/2014 19:25 [facility] Comment: Confirmation testing available upon request. Suitable for medical purposes only. Will not detect all drugs within class. Cutoff = 50 ng/ml Specimen type is urine. Opiate Scrn, Ur Negative screen. 07/13/2014 19:25 [facility] Comment: Confirmation testing available upon request. Suitable for medical purposes only. Will not detect all drugs within class. Cutoff = 300 ng/ml Assay less sensitive to oxycodone and metabolites. Assay does not detect methadone. Specimen type is urine. Cocaine Metabolites, Ur Negative screen. 07/13/2014 19:25 EST [facility] Comment: Confirmation testing available upon request. Suitable for medical purposes only. Will not detect all drugs within class. Cutoff = 300 ng/ml Specimen type is urine. Urine specimen (specimen) URINE / Unknown 07/13/2014 18:41 EST 07/13/2014 18:58 EST Quinn HERNDON-C URINALYSIS ORDERABLE S Performing Organization Address [facility] Co de Phone Number [facility] [address] [place] [address] * TSH (07/13/2014 18:41 EST) TSH 1.39 0.35 - 5.00 uIU/ml 07/13/2014 19:42 EST [facility] Blood specimen (specimen) BLOOD SPECIMEN / Unknown 07/13/2014 18:41 EST 07/13/2014 18:58 EST Quinn HERNDON-C CHEMISTRY & BLOOD GA S ORDERABLES Performing Organization Address [facility] Co de Phone Number [facility] [address] [place] [address] * GLUCOSE, SERUM (07/13/2014 18:41 EST) Glucose, Serum 80 70 - 100 mg/dl 07/13/2014 19:24 EST [facility] Blood specimen (specimen) BLOOD SPECIMEN / Unknown 07/13/2014 18:41 EST 07/13/2014 18:58 EST Quinn HERNDON-C CHEMISTRY & BLOOD GA S ORDERABLES Performing Organization Address [facility] Co de Phone Number [facility] [address] [place] [address] * ELECTROLYTES (07/13/2014 18:41 EST) Sodium 143 136 - 145 mEq/L 07/13/2014 19:24 EST [facility] Potassium 4.1 3.5 - 5.0 mEq/L 07/13/2014 19:24 EST [facility] Chloride 105 96 - 110 mEq/L 07/13/2014 19:24 [facility] CO2 31 24 - 32 mEq/L 07/13/2014 19:24 [facility] Blood specimen (specimen) BLOOD SPECIMEN / Unknown 07/13/2014 18:41 EST 07/13/2014 18:58 EST Quinn HERNDON-C CHEMISTRY & BLOOD GA S ORDERABLES Performing Organization Address City/[facility]/ZIP Co de Phone Number [facility] [address] [place] [address] * CREATININE (07/13/2014 18:41 EST) Creatinine 0.86 0.52 - 1.04 mg/dl 07/13/2014 19:24 EST [facility] GFR, Calculated >60 >60 ml/min/1.7 3m2 07/13/2014 19:24 EST [facility] Blood specimen (specimen) BLOOD SPECIMEN / Unknown 07/13/2014 18:41 EST 07/13/2014 18:58 EST Quinn HERNDON-C CHEMISTRY & BLOOD GA S ORDERABLES Performing Organization Address City/[facility]/ZIP Co de Phone Number [facility] [address] [place] [address] * BUN (07/13/2014 18:41 EST) BUN 18 10 - 26 mg/dl 07/13/2014 19:24 EST [facility] Blood specimen (specimen) BLOOD SPECIMEN / Unknown 07/13/2014 18:41 EST 07/13/2014 18:58 EST Quinn HERNDON-C CHEMISTRY & BLOOD GA S ORDERABLES Performing Organization Address City/[facility]/ZIP Co de Phone Number [facility] [address] [place] [address] * (ABNORMAL) HEMAGRAM AND DIFFERENTIAL (07/13/2014 18:41 EST) WBC 8.65 4.0 - 12.4 K/cmm 07/13/2014 19:02 [facility] RBC 5.16(H) 3.86 - 5.04 M/cmm 07/13/2014 19:02 [facility] Hemoglobin 15.4(H) 11.6 - 15.2 gm/dl 07/13/2014 19:02 [facility] HCT 45.8(H) 34.9 - 44.4 % 07/13/2014 19:02 [facility] MCV 89 81 - 98 fl 07/13/2014 19:02 [facility] MCH 29.8 26.7 - 33.3 pg 07/13/2014 19:02 [facility] MCHC 33.5 32.1 - 35.9 gm/dl 07/13/2014 19:02 [facility] RDW-CV 12.5 11.7 - 14.6 % 07/13/2014 19:02 [facility] RDW-SD 38.5 37.6 - 50.3 fl 07/13/2014 19:02 [facility] PLT 276 141 - 320 K/cmm 07/13/2014 19:02 [facility] MPV 6.9(L) 7.5 - 11.2 fl 07/13/2014 19:02 [facility] % Neutrophils 65.6 45.5 - 79.7 % 07/13/2014 19:02 [facility] % Lymphocytes 25.8 15.0 - 46.8 % 07/13/2014 19:02 [facility] % Monocytes 6.2 1.8 - 12.0 % 07/13/2014 19:02 [facility] % Eosinophils 1.8 0.6 - 6.9 % 07/13/2014 19:02 [facility] % Basophils 0.6 0.2 - 1.4 % 07/13/2014 19:02 [facility] ABS Neutrophils 5.67 2.20 - 8.85 K/cmm 07/13/2014 19:02 [facility] ABS Lymphs 2.23 1.09 - 3.30 K/cm 07/13/2014 19:02 [facility] ABS Monocytes 0.54 0.1 - 0.8 K/[facility] 07/13/2014 19:02 [facility] ABS Eosinophils 0.16 0.03 - 0.61 K/[facility] 07/13/2014 19:02 [facility] ABS Basophils 0.06 0.01 - 0.11 K/[facility] 07/13/2014 19:02 [facility] Type of Diff: Automated 07/13/2014 19:02 [facility] Blood specimen (specimen) BLOOD SPECIMEN / Unknown 07/13/2014 18:41 EST 07/13/2014 18:58 EST Quinn Miller PA-C PACKAGES & DNA PROBE ORDERABLES Performing Organization Address City/State/[facility] Co de Phone Number [facility] [address] [place] [address] documented in this encounter Visit Diagnoses Diagnosis Depression- Primary Depressive disorder, not elsewhere classified Depression Depressive disorder, not elsewhere classified Suicidal ideations Suicidal ideation Panic disorder Panic disorder without agoraphobia Suicidal ideations Suicidal ideation Panic disorder Panic disorder without agoraphobia documented in this encounter Administered Medications Inactive Administered Medications - up to 3 most recent administrations Medication Order MAR Action Action Date Dose Rate Site acetaminophen (TYLENOL) tablet 650 mg 650 mg, oral, EVERY 6 HOURS PRN, Starting on 07/16/14 at 1049, Until Chel 07/21/14 at 1936, Pain, Routine Given 07/16/2014 16:46 EST 650 mg buPROPion (WELLBUTRIN SR) SR tablet 100 mg 100 mg, oral, DAILY, First dose on Fri07/19/14 at 0900, Until Discontinued, Routine Given 07/19/2014 9:33 EST 100 mg buPROPion (WELLBUTRIN XL) XL tablet 150 mg 150 mg, oral, DAILY, First dose on Fri07/20/14 at 0900, Until Discontinued, Routine Given 07/21/2014 9:21 EST 150 mg Given 07/20/2014 8:49 EST 150 mg citalopram (CELEXA) tablet 20 mg 20 mg, oral, DAILY, First dose on Fri07/17/14 at 0900, Until Discontinued, Routine Given 07/20/2014 8:48 EST 20 mg Given 07/19/2014 9:33 EST 20 mg Given 07/18/2014 9:12 EST 20 mg citalopram (CELEXA) tablet 30 mg 30 mg, oral, DAILY, 1 dose, First dose (after last modification) on 07/16/14 at 0900, STAT Given 07/16/2014 8:38 EST 30 mg citalopram (CELEXA) tablet 30 mg 30 mg, oral, DAILY, First dose (after last modification) on Chel 07/21/14 at 0900, Until Discontinued, Routine Given 07/21/2014 9:22 EST 30 mg citalopram (CELEXA) tablet 40 mg 40 mg, oral, DAILY, First dose on Chel 07/14/14 at 0900, Until Discontinued, STAT Given 07/15/2014 8:28 EST 40 mg Given 07/14/2014 8:37 EST 40 mg clonazePAM (KLONOPIN) tablet 0.5 mg 0.5 mg, oral, 2 TIMES DAILY PRN, Starting on Chel 07/14/14 at 1650, Until Chel 07/21/14 at 1936, Anxiety, Routine Given 07/19/2014 19:41 EST 0.5 mg Given 07/18/2014 11:17 EST 0.5 mg Given 07/18/2014 4:20 EST 0.5 mg clonazePAM (KLONOPIN) tablet 1 mg 1 mg, oral, DAILY, 3 doses, First dose on Fri07/13/14 at 1900, Last dose on Fri07/15/14 at 0900, STAT Given 07/14/2014 10:49 EST 1 mg Given 07/13/2014 19:15 EST 1 mg clonazePAM (KLONOPIN) tablet 1 mg 1 mg, oral, AT BEDTIME PRN, Starting on Fri07/15/14 at 2100, Until Fri07/15/14 at 2242, Anxiety, Other, sleep, Routine Given 07/15/2014 21:47 EST 1 mg clonazePAM (KLONOPIN) tablet 1 mg 1 mg, oral, AT BEDTIME PRN, Starting on Fri07/16/14 at 0000, Until Chel 07/21/14 at 1936, Anxiety, Routine Given 07/20/2014 21:23 EST 1 mg Given 07/19/2014 21:13 EST 1 mg Given 07/18/2014 21:02 EST 1 mg clonazePAM (KLONOPIN) tablet 2 mg 2 mg, oral, AT BEDTIME, 3 doses, First dose on Fri07/13/14 at 2100, Last dose on Fri07/15/14 at 2100, STAT Given 07/13/2014 20:45 EST 2 mg clonazePAM (KLONOPIN) tablet 2 mg 2 mg, oral, AT BEDTIME PRN, Starting on Fri07/14/14 at 1651, Until Fri07/15/14 at 2100, Anxiety, Other, sleep, Routine Given 07/14/2014 21:19 EST 2 mg diphenhydrAMINE (BENADRYL) capsule 50 mg 50 mg, oral, NOW X1, 1 dose, On Fri07/13/14 at 2245, STAT Given 07/13/2014 22:37 EST 50 mg docusate sodium (COLACE) capsule 100 mg 100 mg, oral, DAILY PRN, Starting on Fri07/14/14 at 1936, Until Fri07/15/14 at 1630, Constipation, Routine Given 07/14/2014 21:26 EST 100 mg docusate sodium (COLACE) capsule 100 mg 100 mg, oral, 2 TIMES DAILY PRN, Starting on Fri07/15/14 at 1645, Until Fri07/21/14 at 1936, Constipation, Routine Given 07/16/2014 21:30 EST 100 mg Given 07/16/2014 8:38 EST 100 mg Given 07/15/2014 17:36 EST 100 mg ibuprofen (MOTRIN) tablet 400 mg 400 mg, oral, EVERY 6 HOURS PRN, Starting on Fri07/14/14 at 1701, Until Fri07/18/14 at 1702, Pain, Routine Given 07/17/2014 9:23 EST 400 mg Given 07/16/2014 17:46 EST 400 mg Given 07/16/2014 8:30 EST 400 mg ibuprofen (MOTRIN) tablet 800 mg 800 mg, oral, EVERY 6 HOURS PRN, Starting on Fri07/18/14 at 1702, Until Chel 07/21/14 at 1936, Pain, Routine Given 07/20/2014 21:23 EST 800 mg Given 07/20/2014 8:54 EST 800 mg Given 07/19/2014 10:07 EST 800 mg lisdexamfetamine (VYVANSE) capsule 60 mg 60 mg, oral, DAILY, First dose on Fri07/14/14 at 0900, Until Discontinued, STAT Given 07/21/2014 9:22 EST 60 mg Given 07/20/2014 8:48 EST 60 mg Given 07/19/2014 9:32 EST 60 mg nicotine (NICODERM CQ) 14 mg/24 hr patch 1 Patch 1 Patch, transdermal, DAILY, First dose on Fri07/19/14 at 0900, Until Discontinued, Routine Patch Applied 07/21/2014 9:25 EST 1 Patch Right A rm Patch Applied 07/20/2014 8:48 EST 1 Patch Le ft Chest Patch Applied 07/19/2014 9:33 EST 1 Patch Le ft Arm nicotine (NICODERM CQ) 21 mg/24 hr patch 1 Patch 1 Patch, transdermal, DAILY, 5 doses, First dose (after last reorder) on Fri07/14/14 at 0900, Last dose on Fri07/18/14 at 0900, STAT Patch Applied 07/18/2014 9:14 EST 1 Patch Left Shoulder Patch Applied 07/16/2014 8:38 EST 1 Patch Le ft Shoulder Patch Applied 07/15/2014 8:27 EST 1 Patch Le ft Shoulder ondansetron (ZOFRAN-ODT) disintegrating tablet 4 mg 4 mg, oral, EVERY 4 HOURS PRN, Starting on Fri07/14/14 at 1659, Until Fri07/21/14 at 1936, Nausea, Routine Given 07/14/2014 23:24 EST 4 mg Given 07/14/2014 17:17 EST 4 mg PEG 3350-Electrolytes (MIRALAX) packet 17 g 17 g, oral, PRN, Starting on Fri07/15/14 at 1006, Until Chel 07/21/14 at 1936, Constipation, Routine Given 07/16/2014 8:38 EST 17 g Given 07/15/2014 11:20 EST 17 g senna (SENOKOT) tablet 1-2 Tab 1-2 Tablet, oral, AT BEDTIME PRN, Starting on Fri07/15/14 at 1630, Until Fri07/21/14 at 1936, Constipation, Routine Given 07/16/2014 21:29 EST 2 Tablets Given 07/15/2014 20:30 EST 2 Tablets sumatriptan (IMITREX) tablet 50 mg 50 mg, oral, Once (Without Time Specified), 1 dose, Starting on Fri07/14/14 at 1715, Until Fri07/14/14 at 1742, Routine Given 07/14/2014 17:42 EST 50 mg topiramate (TOPAMAX) sprinkle capsule 25 mg 25 mg, oral, EVERY 12 HOURS, First dose (after last modification) on Fri07/16/14 at 0900, Until Discontinued, STAT Given 07/18/2014 9:12 EST 25 mg Given 07/17/2014 21:07 EST 25 mg Given 07/17/2014 8:56 EST 25 mg topiramate (TOPAMAX) sprinkle capsule 50 mg 50 mg, oral, EVERY 12 HOURS, First dose on Fri07/13/14 at 2100, Until Discontinued, STAT Given 07/15/2014 20:30 EST 50 m g Given 07/15/2014 8:28 EST 50 mg Given 07/14/2014 21:19 EST 50 mg zolpidem (AMBIEN) tablet 5 mg 5 mg, oral, NOW X1, 1 dose, On Fri07/15/14 at 0200, Routine Given 07/15/2014 2:31 EST 5 mg zolpidem (AMBIEN) tablet 5 mg 5 mg, oral, AT BEDTIME PRN, Starting on Fri07/15/14 at 2100, Until Chel 07/21/14 at 1936, Sleep, Routine Given 07/20/2014 21:23 EST 5 mg Given 07/19/2014 21:12 EST 5 mg Given 07/18/2014 21:03 EST 5 mg documented in this encounter Discontinued Medications Medication Sig Discontinue Reason Start Date End Da te citalopram (CELEXA) 20 mg tablet Take 50 mg by mouth daily. 07/21/2014 topiramate (TOPAMAX) 50 mg tablet Take 50 mg by mouth 2 times daily. 07/21/2014 clonazePAM (KLONOPIN) 0.5 mg tablet Take 0.5 mg by mouth 3 times daily. 07/21/2014 documented as of this encounter Active and Recently Administered Medications Times are shown in EST. Scheduled Medication Order 07/19/2014 07/20/2014 07/21/2014 buPROPion (WELLBUTRIN SR) SR tablet 100 mg (CANCELED) 100 mg, oral, DAILY, First dose on Fri07/19/14 at 0900, Until Discontinued, Routine 0933 (Given - Provider: Connie Hernandez RN) buPROPion (WELLBUTRIN XL) XL tablet 150 mg 150 mg, oral, DAILY, First dose on Fri07/20/14 at 0900, Until Discontinued, Routine 0849 (Given - Provider: Connie Hernandez RN) 0921 (Given - Provider: Charu Pizarro) citalopram (CELEXA) tablet 20 mg (CANCELED) 20 mg, oral, DAILY, First dose on Fri07/17/14 at 0900, Until Discontinued, Routine 0933 (Given - Provider: Connie Hernandez RN) 0848 (Given - Provider: Connie Hernandez RN) citalopram (CELEXA) tablet 30 mg (CANCELED) 30 mg, oral, DAILY, First dose (after last modification) on Fri07/21/14 at 0900, Until Discontinued, Routine 0922 (Given - Provider: Charu Pizarro) lisdexamfetamine (VYVANSE) capsule 60 mg (CANCELED) 60 mg, oral, DAILY, First dose on Fri07/14/14 at 0900, Until Discontinued, STAT 0932 (Given - Provider: Connie Hernandez RN) 0848 (Given - Provider: Connie Hernandez RN) 0922 (Given - Provider: Charu Pizarro) nicotine (NICODERM CQ) 14 mg/24 hr patch 1 Patch (CANCELED) 1 Patch, transdermal, DAILY, First dose on Fri07/19/14 at 0900, Until Discontinued, Routine 0933 (Patch Applied - Provider: Connie Hernandez RN)2245 (Patch Removed - Provider: Kathleen Blevins RN) 0848 (Patch Applied - Provider: Connie Hernandez RN)212 (Patch Removed - Provider: Julita Ballard RN) 0925 (Patch Applied - Provider: Charu Pizarro)2100 (Due: Patch Removed - Provider: Charu Pizarro) PRN Medication Order 07/19/2014 07/20/2014 07/21/2014 clonazePAM (KLONOPIN) tablet 0.5 mg 0.5 mg, oral, 2 TIMES DAILY PRN, Starting on Chel 07/14/14 at 1650, Until Chel 07/21/14 at 1936, Anxiety, Routine 194 (Given - Provider: Agnes Newell RN) clonazePAM (KLONOPIN) tablet 1 mg 1 mg, oral, AT BEDTIME PRN, Starting on 07/16/14 at 0000, Until Chel 07/21/14 at 1936, Anxiety, Routine 2112 (Given - Provider: Kathleen Blevins RN) 2122 (Given - Provider: Julita Ballard, VANESSA) ibuprofen (MOTRIN) tablet 800 mg 800 mg, oral, EVERY 6 HOURS PRN, Starting on 07/18/14 at 1702, Until Chel 07/21/14 at 1936, Pain, Routine 1007 (Given - Provider: Connie Hernandez RN) 0854 (Given - Provider: Connie Hernandez RN)2122 (Given - Provider: Julita Ballard, VANESSA) ondansetron (ZOFRAN-ODT) disintegrating tablet 4 mg 4 mg, oral, EVERY 4 HOURS PRN, Starting on Chel 07/14/14 at 1659, Until Chel 07/21/14 at 1936, Nausea, Routine sumatriptan (IMITREX) tablet 50 mg 50 mg, oral, DAILY PRN, Starting on Chel 07/14/14 at 1658, Until Chel 07/21/14 at 1936, Migraine, Routine zolpidem (AMBIEN) tablet 5 mg 5 mg, oral, AT BEDTIME PRN, Starting on 07/15/14 at 2100, Until Chel 07/21/14 at 1936, Sleep, Routine 2111 (Given - Provider: Kathleen Blevins RN) 2122 (Given - Provider: Julita Ballard RN) documented in this encounter Orders Medications Ordered That Isaias ht Not Have Been Administered Count Last Ordered Date First Ordered Date citalopram (CELEXA) tablet 20 mg 1 07/21/19 15 clonazePAM (KLONOPIN) tablet 1 mg 1 015 zolpidem (AMBIEN) tablet 5 mg 1 07/15/2014 sumatriptan (IMITREX) tablet 50 mg 1 2014 clonazePAM (KLONOPIN) tablet 0.5 mg 1 07/13 nicotine (NICODERM CQ) 21 mg /24 hr patch 1 Patch 2 07/13/2014 Nursing Count Last Ordered Date First Orde red Date PATIENT AT LOW RISK FOR VTE: RISK OF PHARMACOLOGIC PROPHYLAXIS OUTWEIG 1 07/14/2014 Admission Count Last Ordered Date First Orde red Date ED BED REQUEST 1 07/14/2014 STATUS: INPATIENT ACUTE ADMISSION 1 015 Transfer Count Last Ordered Date First Orde red Date NOTIFY PPS OF DISCHARGE COMPLETE 1 07/21/19 15 NOTIFY PPS OF ROOM CHANGE COMPLETE 2014 CHANGE ATTENDING TO: 07/14/2014 PPS NOTIFICATION OF PATIENT ARRIVAL ON UNIT 1 07/14/2014 Discharge Count Last Ordered Date First Orde red Date DISCHARGE PATIENT 1 07/21/2014 documented in this encounter Care Teams Vapor Coater Relationship Specialty Start Date End Date Chanel Tesfaye MD [address] [place] [phone] PCP - General 04/03/09 documented as of this encounter
--- OUTSIDE RECORDS SUMMARY | 2024-02-11 12:32 | XMS_ITS | Encounter Summary ---
Author Organization [facility] Address [address] [place] [address] Care Team Providers Care Military Pay Clerk Name Role Phone Chanel Tesfaye MD Primary Care Provider [phone] Encounter Details Date Type Department Care Team (Late st Contact Info) Description 01/18/2022 Lab Requisition [facility] Pathology & Laboratory Medicine - [address] [address] Outr Resulting Lab, Provider Social History Tobacco [...] on filedocumented in this encounter Care Teams Military Pay Clerk Relationship Specialty Start Date End Date Chanel Tesfaye MD [address] [place] [phone] PCP - General 04/03/09 documented as of this encounter
--- OUTSIDE RECORDS SUMMARY | 2024-02-11 12:32 | XMS_ITS | Referral Summary ---
Author Organization [facility] Address [address] [place] [address] Care Team Providers Care Construction Grip Name Role Phone Chanel Tesfaye MD Primary Care Provider Encounters Date Type Department Care Team Description 12/05/2023 Lab Requisition [facility] Pathology & Laboratory Medicine - [facility] [address] [place] [address] Eliud Garcia MD Change in bowel habit; Melena from Last 3 Months Allergies Active Allergy Reactions Criticality Noted Date [...] 07/14/2014 Suicidal ideations 07/14/2014 Panic disorder 07/14/2014 Social History Tobacco Use Types Packs/Day Years Used Date Smoking Tobacco: Former Cigarettes Q uit: 07/11/2014 Alcohol Use Standard Drinks/Week Comments Yes 0 (1 standard drink = 0.6 oz pur e alcohol) occ. Sex and Gender Information Value Date Recorded Sex Assigned at Not on file Gender Identity Not on file Sexual Orientation Not on file Last Filed Vital Signs Vital Sign Reading [...] Body Mass Index 28.91 07/13/2014 1504 EST Functional Status Functional Status Response Date of [...] (5 years old or older) Yes 07/14/2014 Plan of Treatment Not on file Procedures Procedure Name Priority Date/Time Associated Diagnosis [...] explore management options, if applicable. 12/09/2023 10:38 [facility] Final Diagnosis A. COLON, RANDOM, BIOPSIES: - Fragments of colonic mucosa with no significant histopathologic abnormalities. 12/09/2023 10:38 [facility] Diagnosis Comment The technical component of the specimen processing was performed at the [facility] Pathology Department, [address] [place] [address] (CLIA [id number]). The professional component of the specimen evaluation (slide review and issuing of the final diagnosis) was performed at [facility], [address] [place] [address] (CLIA License Number [id number]). 12/09/2023 10:38 [facility] Attestation By the signature below, the attending physician certifies that they have 1) personally conducted a gross and/or microscopic examination of the described specimen(s), and/or personally interpreted the results of laboratory testing of the described specimen(s), and 2) personally rendered or confirmed the above diagnosis. 12/09/2023 10:38 [facility] at 1038 Clinical History Elevated liver enzymes, NAFLD, nausea and vomiting, irregular bowels, dysphagia, marijuana use, hematochezia; clinical diagnosis code: K92.1, R19.4 12/09/2023 10:38 [facility] Gross Description [...] processing. Martha Myers 12/05/2023 9:50 12/09/2023 10:[address] [facility] Performing Lab [facility] 10:[address] [facility] Scanned Images 12/09/2023 10:[address] [facility] Tissue COLON STRUCTURE / Unknown 12/03/2023 8:53 EDT 12/05/2023 8:40 EDT Eliud Garcia MD PATHOLOGY ORD ERABLES Performing Organization Address City/[facility]/ZIP Co de Phone Number [facility] [address] [place] [address] * HEPATITIS C AB W REFLEX TO HCV RNA BY PCR (10/17/2023 11:39 EDT) Hep C Antibody Negative Negative 10/17/2023 22:[address] [facility] Blood VENOUS BLOOD / Unknown 10/17/2023 11:39 EDT 10/17/2023 21:16 EDT Provider Outr Resulting Lab CHEMISTRY & BLOOD GAS ORDERABLES Performing Organization Address City/[facility]/ZIP Co de Phone Number [facility] [address] [place], [place] [address] from Last 3 Months or Most Recently Relevant to Health Maintenance Advance Directives For more information, please contact: [phone] * Full Code (Latest Code Status on File) Date Activated Date Inactivated Comments 07/14/2014 17:08 07/21/2014 19:36 Question Answer Comments Reason for decision includes: Full code requested by fully informed patient Who participated in the discussion? Patient Care Teams Construction Grip Relationship Specialty Start Date End Date Chanel Tesfaye MD [address] [place] [phone] PCP - General 04/03/09
--- OUTSIDE RECORDS SUMMARY | 2024-02-11 12:32 | XMS_ITS | Encounter Summary ---
Author Organization [facility] Address [address] [place] [id number] Care Team Providers Care Senior Sharepoint Architect Name Role Phone Chanel Roca MD Primary Care Provider [phone] Encounter Details Date Type Department Care Team (Late st Contact Info) Description 05/01/2015 Results Only [facility]- PRISM [phone] Dinah Morse MD [address] [place] [address] Social History Tobacco Use Types Packs/Day Years [...] Diagnosis Comments PAP TEST- RESULT ONLY Routine 05/01/2015 0:00 EST documented in this encounter Results * PAP TEST- RESULT ONLY (05/01/2015 0:00 EST) Pathology Report: CYTOPATHOLOGY REPORT Reports generated via electronic interface contain original data; however they are lacking the format of the original report. Caution should be taken when reading/interpreti ng unformatted reports. Name: ? SOO ASHTON ? Accession #: ? [id number] ? : ? 1985 (Age: 29) ??F ?Collect Date: ? 05/01/2015 ? Location: ? [facility] ? Receive Date: ? 05/02/2015 ? Provider: DINAH MORSE MD Copy to: CHANEL ROCA MD ? Final Report SPECIMEN ADEQUACY ? Satisfactory for Evaluation - transformation zone component present GENERAL CATEGORIZATION ? Negative for Intraepithelial Lesion or Malignancy INTERPRETATION ? Reactive cellular changes associated with inflammation present (includes repair). Shift in phillip present suggestive of bacterial vaginosis. Previous Gynecologic Pathology: VANCE I: 10/2014 LSIL HPV: +HR HPV Other: Additional clinical information: on imunnosupressives, MTX, remicolle Specimen/Source: ??Pap Test, Cervix/Endocervix, ThinPrep Imaging System with manual evaluation Document reviewed and electronically signed by: ? MELISSA HATHAWAYBCH ? Report ??Date: 05/05/2015 18:12 HPV with Pap Test ? Date Ordered: ? 05/04/2015 ? Status: ?? Signed Out ?Date Complete: ? 05/09/2015 ? By: ??System Interface ? Date Reported: ? 05/09/2015 ? Interpretation RESULT: Positive for high or intermediate risk HPV. E6 OR E7 mRNA from one or more types of HPV types 16,18,31, 33,35,39,45,51,52, 56,58,59,66, and 68 is detected by sleeve wheel maker mediated amplification. High and intermediate risk HPV types are associated with most squamous intraepithelial lesions and cervical cancers. Comments Document reviewed and electronically signed by: ? System Interface ? Report date: 05/09/2015 By the signature above, the attending physician certifies that he/she has personally conducted a gross and/or microscopic examination of the described specimens and rendered or confirmed the above diagnosis. End of Report [facility] 05/01/2015 05/02/2015 Dinah Morse MD PATHOLOGY ORDERABLES Performing Organization Address City/State/[facility] Co de Phone Number [facility] [address] [place] [address] documented in this encounter Visit Diagnoses Not on filedocumented in this encounter Care Teams Senior Sharepoint Architect Relationship Specialty Start Date End Date Chanel Roca MD [address] [place] [phone] PCP - General 04/03/09 documented as of this encounter
--- OUTSIDE RECORDS SUMMARY | 2024-02-11 12:32 | XMS_ITS | Encounter Summary ---
Author Organization [facility] Address [address] [place] [address] Care Team Providers Care Brush Hand Name Role Phone Chanel Roca MD Primary Care Provider [phone] Encounter Details Date Type Department Care Team (Late st Contact Info) Description 12/02/2007 Results Only [facility] - Maple conversion [address] [place] [address] Chanel Roca MD [address] [facility] 1 [place] [address] Social History Tobacco Use Types [...] Priority Date/Time Associated Diagnosis Comments CYTOPATHOLOGY Routine 12/02/2007 0:00 EDT documented in this encounter Results * CYTOPATHOLOGY (12/02/2007 0:00 EDT) Pathology Report: CYTOPATHOLOGY REPORT Reports generated via electronic interface contain original data; however they are lacking the format of the original report. Caution should be taken when reading/interpreti ng unformatted reports. Name: ? SOO ASHTON ? Accession #: ? [id number] : ? 1985 (Age: 22) ??F ?Collect Date: ? 12/02/2007 Location: ? [facility] ? Receive Date: ? 12/03/2007 Provider: ?CHANEL ROCA MD Copy to: ? Specimen/Source: ?ThinPrep Pap Test, Cervix/Endocervix, processed on [employer] ThinPrep Imaging System, with manual evaluation Last Menstrual Period: ? 6.08 Hormonal/Contracep tive Status: ? Control Pills Previous Gynecologic Pathology: ? HPV: ? SPECIMEN ADEQUACY ? Satisfactory for Evaluation - transformation zone component present GENERAL CATEGORIZATION ? Epithelial Cell Abnormality INTERPRETATION ? Squamous Cell Abnormality - Atypical squamous cells, undetermined significance (ASC-US). EDUCATIONAL NOTES/RECOMMENDATI ONS ? [facility] recommends following the 2006 Consensus Guidelines for the Management of Women with Abnormal Cervical Cancer Screening Tests (JLGTD, 2007;11(4):201-222 ). ??Consensus guidelines are available online at www.ASCCP.org. ? Document reviewed and electronically signed by: ? PAULETTE CORONEL MD ? Report Date: ??12/11/2007 17:30 End of Report [facility] 12/02/2007 12/03/2007 Chanel Roca MD PATHOLOGY ORDERABLES Performing Organization Address City/State/[facility] Co de Phone Number [facility] [address] [place] [address] documented in this encounter Visit Diagnoses Not on filedocumented in this encounter Care Teams Brush Hand Relationship Specialty Start Date End Date Chanel Roca MD [address] [place] [phone] PCP - General 04/03/09 documented as of this encounter
--- OUTSIDE RECORDS SUMMARY | 2024-02-11 12:33 | XMS_ITS | Encounter Summary ---
Author Organization [facility] Address [address] [place] [address] Care Team Providers Care Secondary History Teacher Name Role Phone Chanel Tesfaye MD Primary Care Provider Encounter Details Date Type Department Care Team (Late st Contact Info) Description 12/02/2007 Before [facility] Converted Visit (Maple) [facility] - Maple conversion [address] [place] [address] Chanel Tesfaye MD [address] [place] [phone] Social History Tobacco Use Types Packs/Day Years Used Date Smoking Tobacco: Never Assessed Sex and Gender Information Value Date Recorded Sex Assigned at Not on file Gender Identity Not on file Sexual Orientation Not on file documented as of this encounter Plan of Treatment Not on file documented as of this encounter Procedures Procedure Name Priority Date/Time Associated Diagnosis Comments HPV DETECTION, HIGH RISK TYPES Routine 12/02/2007 14:50 EDT documented in this encounter Results * HUMAN PAPILLOMA VIRUS DNA TEST (12/02/2007 14:50 EDT) Specimen Description Cervix, ThinPrep vial [facility] Result Negative for HPV types 16, 18, 31, 33, 35, 39, 45, 51, 52, 56, 58, 59, and 68. [facility] Report Status Final [id number] [facility] 12/02/2007 14:5 0 EDT 12/21/2007 14:50 EDT Chanel Tesfaye MD MICROBIOLOGY - GENER AL ORDERABLES Performing Organization Address City/State/[facility] Co de Phone Number [facility] [address] [place] [address] documented in this encounter Visit Diagnoses Not on filedocumented in this encounter Care Teams Secondary History Teacher Relationship Specialty Start Date End Date Chanel Tesfaye MD [address] [place] [phone] PCP - General 04/03/09 documented as of this encounter
--- OUTSIDE RECORDS SUMMARY | 2024-02-11 12:33 | XMS_ITS ---
Author Organization Unknown Address [address] [place] [address] [phone] Phone Care Team Providers Care Library Media Assistant Name Role Phone SANDHYA LIN Registered Nurse Unavailable BRYSON Prescott Attending Unavailable CHANELLE Roman Primary Unavailable UNLISTED PROVIDER - REQUESTED Xhandoff Un available Social History Type Status Start Date End Date Code Code Syst em Sex Female Vital Signs Vital Sign Value Unit [place] Value [place] Unit Date/Time Recent/Initial? Code Code System Body Mass Index 35.88 kg/m2 02/20/2022 18:55 Initial 12236 -5 [facility] Systolic Blood Pressure 135 mm[Hg] 02/20/2022 18:55 Initial 8480- 6 [facility] Diastolic Blood Pressure 89 mm[Hg] 02/20/2022 18:55 Initial 8462- 4 [facility] Body Surface Area 2.22 m2 02/20/2022 18:55 Initial 3140- 1 [facility] Height 170.180 0 cm 67.00 in 02/20/2022 18:55 Initial 8302- 2 [facility] O2 Saturation 100 % 2021 18:55 Initial 11300 -5 [facility] Pulse 96.0 /min 02/20/2022 18:55 Initial 8867- 4 [facility] Respiration 18 /min 02/21/20 18:55 Initial 9279- 1 LOINC Temperature 36.7 Rahel 98.1 F 02/21/20 18:55 Initial 8310- 5 [facility] Weight 103.90 kg 229.06 lbs 02/20/2022 18:55 Initial 31220 -7 [facility] Hospital Discharge Instructions Should you have any questions prior to discharge, please contact a member of your healthcare team. If you have left the hospital and have any questions, please contact your primary care physician. Reason For Referral No Data Found Allergies and Adverse Reactions Allergy Substance Reaction Severity Start Date Concern Status Co de Code System METHOTREXATE Active 6851 RxNorm Plan of Treatment No Data Found Encounters Encounter Diagnosis Start Date Code Code Sys tem Laceration without foreign b ariel of right forearm, initial encounter 02/20/2022 SNOMED-CT Personal Care Team Section Performer Name Performer Role Active Date Inactive Da te
--- OUTSIDE RECORDS SUMMARY | 2024-02-11 12:33 | XMS_ITS | Encounter Summary ---
Author Organization [facility] Address [address] [place] [address] Care Team Providers Care Model Maker Plaster Name Role Phone Chanel Roca MD Primary Care Provider [phone] Encounter Details Date Type Department Care Team (Late st Contact Info) Description 12/23/2005 Results Only [facility] - Maple conversion [address] [place] [address] hCanel Roca MD [address] [facility] 1 [place] [address] Social History Tobacco Use Types [...] Priority Date/Time Associated Diagnosis Comments CYTOPATHOLOGY Routine 12/23/2005 0:00 EDT documented in this encounter Results * CYTOPATHOLOGY (12/23/2005 0:00 EDT) Pathology Report: CYTOPATHOLOGY REPORT Reports generated via electronic interface contain original data; however they are lacking the format of the original report. Caution should be taken when reading/interpreti ng unformatted reports. Name: ? SOO ASHTON ? Accession #: ? [id number] : ? 1985 (Age: 20) ??F ?Collect Date: ? 12/23/2005 Location: ? [facility] ? Receive Date: ? 12/25/2005 Provider: ?CHANEL ROCA MD Copy to: ? Specimen/Source: ?ThinPrep Pap Test, Cervix/Endocervix, processed on [employer] ThinPrep Imaging System, with manual evaluation Last Menstrual Period: ? 10.22.05 Menstrual/Pregnanc y Status: ? Other: ? Additional clinical information: HPV negative 2002 (2004 pap WNL) HPVA - HPV testing requested if ASC-US on the current ThinPrep Pap test. ? SPECIMEN ADEQUACY ? Satisfactory for Evaluation - transformation zone component present GENERAL CATEGORIZATION ? Negative for Intraepithelial Lesion or Malignancy ? Document reviewed and electronically signed by: ? CINTHYA Arellano(ASCP) ? Report Date: ??12/30/2005 07:24 End of Report [facility] 12/23/2005 12/25/2005 Chanel Roca MD PATHOLOGY ORDERABLES Performing Organization Address City/State/[facility] Co de Phone Number [facility] [address] [place] [address] documented in this encounter Visit Diagnoses Not on filedocumented in this encounter Care Teams Model Maker Plaster Relationship Specialty Start Date End Date Chanel Roca MD [address] [place] [phone] PCP - General 04/03/09 documented as of this encounter
--- OUTSIDE RECORDS SUMMARY | 2024-02-11 12:33 | XMS_ITS | Encounter Summary ---
Author Organization [facility] Address [address] [place] [address] Care Team Providers Care Shipyard Painter Name Role Phone Chanel Roca MD Primary Care Provider [phone] Encounter Details Date Type Department Care Team (Late st Contact Info) Description 10/09/2006 Results Only [facility] - Maple conversion [address] [place] [address] Chanel Roca MD [address] [facility] 1 [place] [phone] Social History Tobacco Use Types [...] Priority Date/Time Associated Diagnosis Comments CYTOPATHOLOGY Routine 10/09/2006 0:00 EDT documented in this encounter Results * CYTOPATHOLOGY (10/09/2006 0:00 EDT) Pathology Report: CYTOPATHOLOGY REPORT Reports generated via electronic interface contain original data; however they are lacking the format of the original report. Caution should be taken when reading/interpreti ng unformatted reports. Name: ? SOO ASHTON ? Accession #: ? [id number] : ? 1985 (Age: 21) ??F ?Collect Date: ? 10/09/2006 Location: ? [facility] ? Receive Date: ? 10/13/2006 Provider: ?CHANEL ROCA MD Copy to: ? Specimen/Source: ?ThinPrep Pap Test, Cervix/Endocervix, processed on [employer] ThinPrep Imaging System, with manual evaluation Last Menstrual Period: ? 09/19 Menstrual/Pregnanc y Status: ? Post Previous Gynecologic Pathology: ? HPV Other: ? HPVA - HPV testing requested if ASC-US on the current ThinPrep Pap test. ? SPECIMEN ADEQUACY ? Satisfactory for Evaluation - transformation zone component present - scant squamous epithelial component GENERAL CATEGORIZATION ? Negative for Intraepithelial Lesion or Malignancy ? Document reviewed and electronically signed by: ? CINTHYA Pickett(ASCP) ? Report Date: ??10/15/2006 14:59 End of Report [facility] 10/09/2006 10/13/2006 Chanel Roca MD PATHOLOGY ORDERABLES Performing Organization Address City/State/[facility] Co de Phone Number [facility] [address] [place] [address] documented in this encounter Visit Diagnoses Not on filedocumented in this encounter Care Teams Shipyard Painter Relationship Specialty Start Date End Date Chanel Roca MD [address] [place] [phone] PCP - General 04/03/09 documented as of this encounter
--- OUTSIDE RECORDS SUMMARY | 2024-02-11 12:33 | XMS_ITS | Continuity of Care Document ---
Author Organization [facility], [facility] [place] [address] Care Team Providers Care Fishery Division Chief Name Role Phone CHANEL TESFAYE Primary Care Provider [facility] Dentist [facility] OFFICE OTHER Assessment Encounter Date Assessment Date Assessment LastModified by Organization Details LastModified Time 12/12/2023 12/12/2023 The total time devoted to today's encounter, including both the kajm-dx-aumi time with the patient and/or family/caregi luis and wdp-opsy-wo-f ciara time I personally spent is 34 minutes. [email or web address] Not available 12/12/2023 17:46:41 Plan of Treatment Reminders Order Date Submit Date Provider Last Modified By Organization Details Last Modified Time Details Appointments Annual Wellness Exam 40 2023 10:40A M Not available Not available Not available Follow Up 20 2023 01:00P M Not available Not available Not available Lab urinalysi s, reflex culture - Dr. Tesfaye is reema norris forced culture. Thank you 2023 024 [email or web address] [facility] (Registration ), [address] [place] [address] [place], [address], 12/19/2023 13:50:10 hepatic function panel, serum 2023 024 ALIREZA [facility] (Registration ), [address] [place] [address] [place], [address], 12/12/2023 16:25:09 Referral general surgeon referral - She had the flu in early September. Since then she has had nausea and vomiting and abdominal pain. LFTs were a bit high but are improving (will repeat today) without resolutio n of her symptoms. USG showed just fatty liver, I have ordered a HIDA scan. She saw GI at [facility] and had a normal colonosco py with normal random biopsies. They were not able to do EGD at that same time. She has avoided dairy and gluten and sugar, is taking omeprazol e, has lost 20 pounds. 2023 024 [email or web address] [facility], [address], [place], [address], 01/21/2024 07:20:54 Procedures None recorded. Surgeries None recorded. Imaging NM, hepatobil iary scan, w/ CCK 2023 024 [email or web address] [facility], [address], [place], [address], 12/23/2023 14:56:35 Medication Orders None recorded. Patient TargetsNo targets recorded. Patient InstructionsNo instructions recorded. Reason for Referral Compensation Adjuster Referral for Liver enzymes level above reference range She has had nausea and vomiting for the last two months, with elevated LFTS. Abd USG shows only fatty liver. Blood work negative for autoimmune hepatitis, iron overload or viral hepatitis. She wonders about CHRON'S. No FH, but she has had loose stools since last summer, initially attributed to coming off of suboxone. Some intermittent blood or mucous in stools, they can be crampy and urgent. Has lost 14 pounds in the last few weeks, nausea worse with eating so tries to avoid eating altogether. She has been fatigued.She did have an episode of UVEITIS several years ago, which does put her at risk for other autoimmune entities. 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 Referring Physician: Chanel Tesfaye, Family Medicine, Encounter Date: 11/12/2023 General Surgeon Referral for Nausea and vomiting She had the flu in early September. Since then she has had nausea and vomiting and abdominal pain. LFTs were a bit high but are improving (will repeat today) without resolution of her symptoms. USG showed just fatty liver, I have ordered a HIDA scan. She saw GI at [facility] and had a normal colonoscopy with normal random biopsies. They were not able to do EGD at that same time. She has avoided dairy and gluten and sugar, is taking omeprazole, has lost 20 pounds. Referring Physician: Chanel Tesfaye, Family Medicine, Encounter Date: 12/12/2023 Results Created Date Observation Date Name Description Value Unit Range Abnormal Flag Note LastModifiedBy Organization Detail LastModifiedTime 12/04/19 24 12/04/2023 gerry jordan strip , EKG* No observ ation record ed. [email or web address] [address], [address], 12/05/2023 09:18:03 12/10/19 24 12/09/2023 clarence melton ow study No observ ation record ed. [email or web address] [address], [address], 12/11/2023 07:34:38 12/23/19 24 12/23/2023 NM, hepat obili brandon scan, w/ CCK Patien t Name: Moises Ashton sa Unit #: [id number] Loc: DI Orderi ng Provid er: Chanel Tesfaye M.D. Accoun t #: [id number] Status : REG CLI Primar y Care Provid er: Chanel Tesfaye M.D. Date of Exam: 03/09 Sex: F Admiss ion Date: : 1984 Age: 38 Exam(s ) NM HEPATO BILIAR Y SCAN GRP EXAM: NM HEPATO BILIAR Y SCAN GRP CLINIC AL HISTOR Y: NAUSEA , VOMITI NG R11.2, R10.11 . TECHNI QUE: Inject ed dose: 5 mCi Tc-99 mebrof enin Initia l dynami c images : 60 minute s Post-G allbla dder fillin ounces of Ensure p.o. Additi onal images : 30 minute dynami c follow ing ensure admini strati on. COMPAR CORRY: CT RENAL COLIC WO CONTRA ST from 2016 US US ABDOME N LIMITE D from 2023 FINDIN GS: Normal hepati c transi t time. Prompt excret ion into the gallbl adder. Delaye d visual izatio n the small bowel, not visibl e at 70 minute s. Small bowel immedi ately visibl e follow ing ensure admini strati on. Gallbl adder ejecti on fracti on: 69 percen t IMPRES CHINTAN: Normal gallbl adder ejecti on fracti on. Mild delay in visual izatio n of small bowel. SNM guidel jossue: Gallbl adder visual izatio n should be presen t by 3 hours. Delaye d biliar y-to-b owel transi t beyond 60 min raises the suspic ion for partia l common bile duct (CBD) obstru ction. Gallbl adder ejecti on fracti on <35% has a good correl ation with acalcu lous diseas e (i.e., chroni c acalcu lous cholec ystiti s, cystic duct syndro me, sphinc ter of Oddi diseas e). Ordere d By: Chanel Tesfaye M.D. CC: ------ ------ ------ ------ ------ ------ ------ ------ ------ ------ ------ ------ - Dictat ed By: Nguyen Lu [id number] Transc ribed By: Diana Edward 1157 This is privil eged, confid ential inform ation intend ed only for the provid er named. Any use or distri bution by any person other than this [facility] er is strict ly prohib ited. If you receiv e this report in error, please notify us immedi ately at and return the origin al report to us at the addres s above. Thank- you. ALIREZA [facility] [address], [place], [address], 12/28/2023 18:06:30 Result Notes None recorded. Problems Name Problem SNOMED Code Status Onset Date Resolution Date Notes Provider Name and Address Organization Details Recorded Time Attentio n deficit hyperact ivity disorder , predomin antly inattent maddi type 99911371 Active 2005 GURPREET david, [facility] 4 12:23:52 Migraine 36324534 Active 2008 GURPREET david, [facility] 4 12:24:23 History of psychiat rosa elena disorder 395307135 Completed 201405/06/2023 11/21/19 23 - Comments only - Chanel Tesfaye MD - currentl y mood has been good. Has not been taking topirama te, see headache s below. Problem Code: Z86.59; Problem Code Type: ICD-10; MD [address], [place], [address] , [facility] 3 06:13:52 Posttrau matic stress disorder 23468956 Active 2014 GURPREET david, [facility] 4 12:24:44 History of risk factor for suicide 57574468982 4103 Active [address], [place], [address] , [facility] 3 06:12:39 Obesity 449887240 Active 2014 GURPREET david, [facility] 4 12:24:34 History of gynecolo gical disorder 230394706 Completed 201405/06/2023 07/13/19 22 - Comments only - Chanel Tesfaye MD - PAP smear obtained today. Problem Code: Z87.42; Problem Code Type: ICD-10; CHANEL TESFAYE MD [address], [place], [address] , [facility] 3 06:20:17 Iridocyc litis 66441531 Active 2014 GURPREET david, [facility] 4 12:24:18 Cervical radiculo chiqui 00421391 Active 2014 GURPREET david [facility] 4 12:23:56 Nausea and vomiting 90250606 Completed 201412/05/2014 11/22/19 15 - Comments only - Chanel Tesfaye MD - This may be related to all of the ibuprofe n she has been taking. She has disconti nued all nonstero idals. Trial of omeprazo le 20 mg daily. Problem Code: R11.2; Problem Code Type: ICD-10; KATRINA GRACE [address], [place], [address] , [facility] 4 10:15:51 Acute upper respirat ory infectio n 03698215 Completed 201404/24/2015 04/10/20 15 - Comments only - Chanel Tesfaye MD - Viral, symptoma tic treatmen t. Problem Code: J06.9; Problem Code Type: ICD-10; Not Available [facility] 3 05:55:54 Opioid dependen ce in remissio n 004833205 Active 2015 GURPREET david, [facility] 4 12:24:39 Otorrhea of left ear 59961129646 17061 Completed 201604/20/2017 03/21/20 17 - Comments only - Chanel Tesfaye MD - referral to ENT as did not improve with antibiot ics. Problem Code: H92.12; Problem Code Type: ICD-10; Not Available [facility] 3 05:55:54 Acute vaginiti s 61084820 Completed 201604/04/2017 03/21/20 17 - Comments only - Chanel Tesfaye MD - vaginal screen obtained . Problem Code: N76.0; Problem Code Type: ICD-10; Not Available [facility] 3 05:55:54 Generali zed pustular psoriasi s 409777278 Active 2016 GURPREET david, [facility] 4 12:24:05 Adult health examinat ion Active 2017 GURPREET david, [facility] 4 12:23:46 Nicotine dependen ce 72557336 Completed 201709/02/[address], [place], [address] , [facility] 4 20:04:27 Prediabe gerald 166674990 Active 2018 GURPREET david, [facility] 4 12:24:50 Acute conjunct ivitis 67801601 Completed 201810/16/2018 10/03/19 19 - Comments only - Chanel Tesfaye MD - On Floxin drops. Problem Code: H10.30; Problem Code Type: ICD-10; Not Available [facility] 3 05:55:55 Essentia l hyperten chintan 37414900 Active 2019 GURPREET david, [facility] 4 12:24:01 Candidia sis of vagina 65301525 Completed 202008/25/2020 08/11/19 21 - Comments only - Chanel Tesfaye MD - By history, has repsonde d well in the past to Chelle munoz, rx sent. Problem Code: B37.3; Problem Code Type: ICD-10; Not Available [facility] 3 05:55:55 Gynecolo gic examinat ion Completed 202105/06/2023 Problem Code: Z01.419; Problem Code Type: ICD-10; MD [address], [place], [address] , [facility] 3 06:18:00 Candidia sis 29661112 Completed 202105/06/2023 03/20/20 22 - Comments only - Chanel Tesfaye MD - will check with lab about the yeast culture. Problem Code: B37.9; Problem Code Type: ICD-10; MD [address], [place], [address] , [facility] 3 06:23:12 Acute vaginiti s 55836007 Completed 202101/30/2022 01/19/20 22 - Comments only - Chanel Tesfaye MD - fungal culture obtained today to send to the lab. Problem Code: N76.0; Problem Code Type: ICD-10; Not Available [facility] 3 05:55:56 Dysuria 16929515 Completed 202101/30/2022 Problem Code: R30.0; Problem Code Type: ICD-10; Not Available [facility] 3 05:55:56 Insomnia 595170619 Active 2021 GURPREET david, [facility] 4 12:24:13 Single major depressi ve episode, moderate Completed 201403/12/2023 Problem Code: 296.22; Problem Code Type: ICD-9; Not Available [facility] 3 05:56:03 Opioid dependen ce 82935859 Completed 201503/12/2023 06/12/20 22 - Comments only - Chanel Tesfaye MD - continue s to work on weaning, struggli ng with the last fraction of amount. Has follow up with [facility] Problem Code: F11.20; Problem Code Type: ICD-10; Not Available [facility] 3 05:56:04 Impaired fasting glycemia 119782870 Completed 201606/21/2019 Problem Code: R73.01; Problem Code Type: ICD-10; Not Available [facility] 3 05:56:04 Right side sciatica 68049182795 9101 Completed 201503/29/2016 Problem Code: M54.31; Problem Code Type: ICD-10; Not Available [facility] 3 05:56:05 Pain of right shoulder joint 42461638989 277926 Completed 201409/05/2017 Problem Code: M25.511; Problem Code Type: ICD-10; Not Available [facility] 3 05:56:06 Melanocy tic nevus 572076400 Completed 202007/13/2021 Problem Code: D22.9; Problem Code Type: ICD-10; Not Available [facility] 3 05:56:07 Panic disorder 668134843 Completed 201403/12/2023 04/10/20 15 - Comments only - Chanel Tesfaye MD - I did get her the phone number and contact informat ion for her psychiat rist so that I can check in with him about appropri ate medicati ons. In the meantime , I renewed her current medicati ons. Problem Code: F41.0; Problem Code Type: ICD-10; Not Available [facility] 3 05:56:08 Acute non-infe ctive otitis externa 897812941 Completed 201606/12/2017 Problem Code: H60.502; Problem Code Type: ICD-10; Not Available [facility] 3 05:56:08 Tobacco user 420137540 Completed 201703/12/2023 07/10/19 19 - Comments only - Chanel Tesfaye MD - close to quitting , renewed step 3 patches. Problem Code: Z72.0; Problem Code Type: ICD-10; Not Available [facility] 3 05:56:09 Fibromya lgia 325335054 Completed 201407/13/2021 Problem Code: M79.7; Problem Code Type: ICD-10; Not Available [facility] 3 05:56:09 Moderate major depressi on, single episode 12895198 Completed 201403/12/2023 09/21/19 16 - Comments only - Chanel Tesfaye MD - Her depressi on is really quite severe, I suggeste d that she increase her topirama te from 100 mg twice daily up to 150 mg twice daily, with room to titrate to maximum dose of 400 mg daily. At this point I have also recommen ded return to psychiat ry. She was previous ly followed by Dr. Harmon, but does not feel comforta ble with him, so I recommen ded a referral to Dr. Devorah Rodrigues, patient is aware that this would be just a medicati on recommen dation consulta tion, and not long-ter m therapy. Problem Code: F32.1; Problem Code Type: ICD-10; Not Available [facility] 3 05:56:10 Major depressi on, single episode 86768500 Completed 201403/12/2023 07/13/19 22 - Comments only - Chanel Tesfaye MD - currentl y stable with topirama te 25 mg BID. Problem Code: F32.9; Problem Code Type: ICD-10; Not Available [facility] 3 05:56:11 Pain of left shoulder joint 51852040679 434456 Completed 202111/20/2022 Problem Code: M25.512; Problem Code Type: ICD-10; Not Available [facility] 3 05:56:12 Chronic pain 43952671 Completed 201503/12/2023 08/09/19 17 - Comments only - Chanel Tesfaye MD - Her medicati on is renewed. If she does not need an Ignacia dose of Remicade , we can refer her back to alf vazquez to discuss fixing her cervical spine bulging disc. Oxycodon e is renewed for 12 weeks. We will send her urine drug screen off for confirma tion, as it was positive here in the office on screenin g for opiates other than oxycodon e Problem Code: G89.29; Problem Code Type: ICD-10; Not Available [facility] 3 05:56:13 Suicidal thoughts 9569357 Completed 201403/12/2023 Not Available [facility] 3 05:56:14 Localize d eruption of skin 995738344 Completed 201604/20/2017 03/21/20 17 - Comments only - Chanel Tesfaye MD - right foot. I have suggeste d treating with bactoban , but email and photo sent with her permissi on to Dermatol ogist. Problem Code: R21; Problem Code Type: ICD-10; Not Available [facility] 3 05:56:14 Visual disturba nce 76454901 Completed 201811/02/2020 Problem Code: H53.9; Problem Code Type: ICD-10; Not Available [facility] 3 05:56:15 Ankle sprain NOS Completed 201403/13/2015 Not Available [facility] 3 05:56:15 Otitis media of left ear 64801755454 63250 Completed 201606/12/2017 Problem Code: H66.92; Problem Code Type: ICD-10; Not Available [facility] 3 05:56:16 Cervicov aginal cytology : Low grade squamous intraepi thelial lesion 193663639 Completed 201403/12/2023 Not Available [facility] 3 05:56:17 Joint pain 21120638 Completed 201609/05/2017 Problem Code: M25.50; Problem Code Type: ICD-10; Not Available [facility] 3 05:56:17 Panic disorder without agorapho hakeem 70029178 Completed 201403/12/2023 03/13/20 15 - Comments only - Chanel Tesfaye MD - See above, I have agreed for now to refill her benzodia zepines, but have asked her to contact her psychiat rist and have him discuss the role off benzodia zepines long-ter m with me. Problem Code: 300.01; Problem Code Type: ICD-9; Not Available [facility] 3 05:56:18 Blood glucose outside referenc e range 483972217 Completed 201803/12/2023 12/08/19 19 - Comments only - Chanel Tesfaye MD - This was done as a fingerst ick, will draw fasting glucose and hemoglob in A1c venous at next visit, she promises to come in fasting, she does not want to have blood work done in the interim. Problem Code: R73.09; Problem Code Type: ICD-10; Not Available [facility] 3 05:56:18 Secondar y amenorrh ea 483140304 Completed 201707/13/2021 Problem Code: N91.1; Problem Code Type: ICD-10; Not Available [facility] 3 05:56:20 History of depressi on 091632600 Active [address], [address] 3 10:54:37 History of abnormal cervical Papanico laou smear 055978971 Active 2014 HR HPV MD [address], [address] 3 06:18:58 Recurren t candidia sis of vagina 792545497 Active [address], [place] [address] , [facility] 3 06:22:50 Recurren t major depressi on 31885483 Active [address], [address] 4 14:49:55 Ex-smoke r 1601718 Active [address], [address] 4 20:04:36 Nausea and vomiting 53990407 Active 202311/22/19 15 - Comments only - Chanel Tesfaye MD - This may be related to all of the ibuprofe n she has been taking. She has disconti nued all nonstero idals. Trial of omeprazo le 20 mg daily. Problem Code: R11.2; Problem Code Type: ICD-10; [address], [place], [address] , [facility] 4 10:15:51 Diarrhea 80746099 Active [address], [place], [address] , [facility] 4 10:34:47 Mendoza stokes user 249544714 Active [address], [place], [address] , [facility] 4 10:36:40 Problem Notes None recorded. Medical Equipment None Reported. Allergies Allergen ID Allergen Name Allergen Category Reaction Reaction Severity Criticality Documentation Date Start Date Code Code System Note Provider Name and Address Organization Details Recorded Time 25522 Monistat medicatio n swelling mild Not available 04/25/20232006 42790 9 RxNorm SWELL ING Not Available [facility] 3 16:22:11 Medications Name Sig Start Date Stop Date Status Note LastModified by Organization Details LastModified Time amoxicill in 500 mg capsule Take 1 cap by mouth three times daily for 7 days. 03/21 completed Not Available Not Available Not Available Vitamin B-2 100 mg tablet TAKE 4 TABLETS BY MOUTH ONCE DAILY FOR MIGRAINE S active Not Available Not Available No t Available nystatin 100,000 unit/mL oral suspensio n 5ml four times daily 12/01 completed Not Available Not Available Not Available Colace 100 mg capsule 3-4 per day 08/11 completed Not Available Not Available Not Available Neurontin 300 mg capsule take 1 capsule daily for 3 days, then 1 capsule twice daily for 3 days, then 1 capsule three times daily 11/21 completed Not Available Not Available Not Available trazodone 50 mg tablet 1 Tab QHS 06/27 completed Not Available Not Available Not Available azithromy tigist 250 mg tablet QD 08/21 completed Not Available Not Available Not Available ibuprofen 800 mg tablet 1tab every six hours 11/02 completed Not Available Not Available Not Available fluconazo le 150 mg tablet TAKE 1 TABLET BY MOUTH ONCE IF SYMPTOMS PERSIST MAY REPEAT IN 3 DAYS 02/10 completed Not Available Not Available Not Available Vicodin 5 mg-500 mg tablet 1TAB .prn q6h pain 03/01 completed Not Available Not Available Not Available Nicorette 2 mg gum Chew 1gum every 1-2 hours, maximum of 24 per 24 hours 06/21 completed Not Available Not Available Not Available Paxil 20 mg tablet 1 TAB daily 12/19 completed Medicati onName: 'PAXIL 20MG'; Not Available Not Available Not Available clonazepa m 0.5 mg tablet 1 po qhs Fill at RA only 01/23 completed Not Available Not Available Not Available rizatript an 10 mg tablet TAKE 1 TABLET BY MOUTH DIRECTED AT ONSET OF HEADACHE , MAY REPEAT IN 2 HOURS MAXIMUM DAILY DOSE = 2 active Not Available Not Available No t Available betametha sone, augmented 0.05 % topical cream apply twice daily to affected area on right foot 06/06 completed stop Clobetas ol Not Available Not Available Not Available clonazepa m 1 mg tablet 1 tab at bedtime Take as needed. 2014 active Outside medicati on Not Available Not Available Not Available clobetaso l 0.05 % topical cream apply twice daily to affect area (s). 06/12 completed Not Available Not Available Not Available Ultram 50 mg tablet 1 po q 8 hours prn 01/12 completed Not Available Not Available Not Available penicilli n V potassium 500 mg tablet 1 tab by mouth twice daily 05/04 completed Not Available Not Available Not Available lysine 1,000 mg tablet 1 tab daily 2020 active Not Available Not Available Not Avai lable topiramat e 25 mg tablet TAKE 1 TABLET BY MOUTH TWO TIMES A DAY 09/01 completed increase d to 50 BID Not Available Not Available Not Available Remicade 100 mg intraveno us solution per Dr. Jay for IRITIS 01/23 completed Not Available Not Available Not Available metronida zole 500 mg tablet Take 1 tab by mouth twice daily for 7 days 03/31 completed Not Available Not Available Not Available hydroxyzi ne HCl 50 mg tablet Take 1 tab by mouth three times daily as needed for migraine headache s 12/07 completed Not Available Not Available Not Available omeprazol e 40 mg capsule,d elayed release TAKE ONE CAPSULE BY MOUTH EVERY DAY (30 MINUTES BEFORE DIRECTED ) 02/10 completed Not Available Not Available Not Available amoxicill in 500 mg tablet 1 tid 10/29 completed Not Available Not Available Not Available MS Contin 15 mg tablet,ex tended release take 1 tab daily 06/08 completed Not Available Not Available Not Available Imitrex 50 mg tablet 1 tab q2 hours Take as needed. 01/23 completed Not Available Not Available Not Available Zofran 4 mg tablet Take 1 tablet as needed 07/13 completed Not Available Not Available Not Available Ritalin 10 mg tablet 1 tab three times a day 03/13 completed outside medicati on Not Available Not Available Not Available citalopra m 20 mg tablet 1TAB daily 2014 active Not Available Not Available Not Avai lable amitripty line 25 mg tablet 1 TAB QHS 03/18 completed Not Available Not Available Not Available Nicoderm CQ 14 mg/24 hr daily transderm al patch Apply 1 patch external ly daily to hairless area. Rotate skin sites 07/10 completed Not Available Not Available Not Available erythromy tigist 5 mg/gram (0.5 %) eye ointment ointment four times daily 08/12 completed Not Available Not Available Not Available nortripty line 10 mg capsule 1 po qhs 2014 active Not Available Not Available Not Avai lable Ocuflox 0.3 % eye drops 1-2 drop 4 times per day for 7 days 10/09 completed Not Available Not Available Not Available Prozac 20 mg capsule 1-2 caps QD 10/20 completed Not Available Not Available Not Available Neurontin 100 mg capsule 1CAP daily 11/02 completed Not Available Not Available Not Available Valtrex 1 gram tablet 1tab tid 06/02 completed Not Available Not Available Not Available omeprazol e 20 mg capsule,d elayed release Take 1 capsule by mouth once a day as needed 02/10 completed Not Available Not Available Not Available Provera 10 mg tablet take for 5 days every 3-4 months as needed if no menses. 2017 active Not Available Not Available Not Avai lable folic acid 1 mg tablet Take 1 by mouth once a day 02/10 completed outside med Not Available Not Available Not Available lisinopri l 5 mg tablet TAKE ONE TABLET BY MOUTH EVERY DAY active Not Available Not Available No t Available mupirocin 2 % topical ointment apply to rash on foot twice a day for 10 days. 03/24 completed Not Available Not Available Not Available zolpidem 5 mg tablet 1tab at bedtime 11/02 completed Not Available Not Available Not Available mirtazapi ne 15 mg tablet TAKE ONE TABLET BY MOUTH AT BEDTIME 10/19 completed Not Available Not Available Not Available clobetaso l 0.05 % topical ointment Apply to skin once a day 02/10 completed Not Available Not Available Not Available lorazepam 1 mg tablet 1tab at bedtime 07/21 completed Not Available Not Available Not Available fentanyl 25 mcg/hr transderm al patch Patch - change every 72 hrs Fill at [facility] only 01/23 completed Not Available Not Available Not Available Anusol-HC 25 mg rectal supposito ry supp twice daily 08/26 completed Not Available Not Available Not Available hydrocort isone 2.5 % topical ointment Apply a small amount to affected area twice a day 01/18 completed Not Available Not Available Not Available ondansetr on 4 mg disintegr ating tablet TAKE 1-2 TABLETS BY MOUTH EVERY 4-8 HOURS NEEDED , MAXIMUM DAILY DOSE = 6 TABLETS active Not Available Not Available No t Available topiramat e 100 mg tablet Take 1 tablet by mouth twice daily. Along with 50 mg for total of 150 mg twice daily. 01/23 completed Not Available Not Available Not Available lisinopri l 2.5 mg tablet Take 1 tab by mouth daily 02/27 completed Not Available Not Available Not Available Celexa 40 mg tablet 1 po daily 12/01 completed Not Available Not Available Not Available Paxil 30 mg tablet 1 TAB daily 03/30 completed Not Available Not Available Not Available naproxen 500 mg tablet Take 1 tab by mouth twice daily as needed for migraine headache - take for 3-4 days 12/01 completed Not Available Not Available Not Available nortripty line 50 mg capsule 1-2 tabs at bedtime 01/23 completed Not Available Not Available Not Available difloraso ne 0.05 % topical ointment apply to feet twice a day 12/07 completed Not Available Not Available Not Available nicotine 7 mg/24 hr daily transderm al patch place one patch daily 06/21 completed Not Available Not Available Not Available oxycodone 5 mg tablet Take 1 tablet by mouth twice daily. Fill at [facility] only 01/23 completed Not Available Not Available Not Available Toradol 10 mg tablet 1 TAB Q6 07/21 completed Not Available Not Available Not Available eletripta n 20 mg tablet TAKE 1 TABLET BY MOUTH ONCE A DAY NEEDED FOR HEADACHE , MAY REPEAT DOSE IN 2 HOURS IF NEEDED, MAX OF 2 PER DAY 05/07 completed Not Available Not Available Not Available moxifloxa tigist 0.5 % eye drops apply 1-2 drops, in eye, 4 times daily for 7 days. 12/07 completed Not Available Not Available Not Available Ciprodex 0.3 %-0.1 % ear drops,edide pension Instill 4 drops into affected ear(s) twice daily for 7 days 05/01 completed Not Available Not Available Not Available topiramat e 50 mg tablet TAKE ONE TABLET BY MOUTH TWO TIMES A DAY active Not Available Not Available No t Available mirtazapi ne 7.5 mg tablet TAKE ONE TABLET BY MOUTH AT BEDTIME 05/07 completed Not Available Not Available Not Available nitrofura ntoin monohydra te/macroc rystals 100 mg capsule TAKE ONE CAPSULE BY MOUTH EVERY 12 HOURS FOR 5 DAYS MUST ADMINIST ER WITH A MEAL/NILSON D 12/11 completed Not Available Not Available Not Available fentanyl 12 mcg/hr transderm al patch apply Q 72 hrs 2014 active Not Available Not Available Not Avai lable Lyrica 50 mg capsule titrate to 1 po TID 12/29 completed Not Available Not Available Not Available Ortho Tri-Cycle n (28) Take 1 tablet by mouth once a day 2014 active Not Available Not Available Not Avai lable Adderall XR (20mg) 1TAB daily 11/21 completed Not Available Not Available Not Available Adderall XR 20MG .QAM 06/19 completed Not Available Not Available Not Available Vyvanse 30 mg capsule TAKE ONE CAPSULE BY MOUTH AT NOON active Not Available Not Available No t Available Vyvanse 50 mg capsule 1TAB daily 02/02 completed Not Available Not Available Not Available Vyvanse 70 mg capsule Take 1 by mouth daily. Fill at [facility] only 2014 active Not Available Not Available Not Avai lable Vyvanse 60 mg capsule 1 po daily Fill at [facility] only max one capsule daily 2014 active Not Available Not Available Not Avai lable Vyvanse 40 mg capsule TAKE ONE CAPSULE BY MOUTH EVERY MORNING active Not Available Not Available No t Available oxycodone 10 mg tablet 1 tab BID. Fill at [facility] ONLY 2014 active Not Available Not Available Not Avai lable Suboxone 8 mg-2 mg sublingua l film Take 1 film sublingu ally once daily, total of 9mg 2019 active Not Available Not Available Not Avai lable Suboxone 2 mg-0.5 mg sublingua l film Take 1/8 strip under tongue once a day 11/20 completed Not Available Not Available Not Available Vicodin 5 mg-300 mg tablet 2 po BID 03/01 completed Not Available Not Available Not Available Suboxone 12 mg-3 mg sublingua l film Take 1 film sublingu ally every other day 2016 active PER BADULCE MARIA Not Available Not Available Not Available Tri-Linya h (28) 0.18 mg(7)/0.2 15 mg(7)/0.2 5 mg(7)-35 mcg tablet TAKE ONE TABLET BY MOUTH EVERY DAY active Not Available Not Available No t Available OxyContin 10 mg tablet,cr ush resistant ,extended release Take 1 by mouth daily, may take a second one PRN. [facility] only 01/23 completed until the appointm ent on 11/01/16 Not Available Not Available Not Available riboflavi n (vitamin B2) 400 mg tablet Take 1 tablet every day by oral route, for migraine s. 2023 active Not Available Not Available Not Avai lable bupropion HCl 150 mg tablet,12 hr sustained -release( smoking deterrent ) 1tab daily 11/02 completed Not Available Not Available Not Available cannabidi ol (CBD) extract 3 drop under tongue twice a day 02/10 completed Not Available Not Available Not Available Vitals Date Recorded Body height Body temperature Body mass index (BMI) Body weight Oxygen saturation Oxygen saturation in Arterial blood by Pulse oximetry Respiratory rate Heart rate Systolic blood pressure Diastolic blood pressure Provider Name and Address Organization Details Last Updated DateTime 4 171.2 cm 97.6 [degF] 35.9 kg/m2 421842. 43 g 99 % 99 % 16 /min 82 /min 110 mm[Hg] 80 mm[Hg] ALESHA MORENO LPN [facility] 4 09:42:24 Social History Question Answer Notes LastModified by Organizat ion Details LastModified Time Tobacco Smoking Status Former Smoker STEPAN HERNANDEZ, [facility] 05/07/2023 08:45:43 What Is Your Level Of Alcohol Consumption? Occasional Information not available 05/07/2023 How Many Times Per Week Do You Consume Alcohol? Less Than 1 Time Per Week Information not available 05/07/2023 If You Are , What Was Your Level Of Alcohol Consumption Prior To ? None Information not available 05/07/2023 Are You Currently Employed? Yes Information not available 05/07/2023 What Type Of Diet Are You Following? REGULAR Information n ot available 05/07/2023 Which Illicit Or Recreational Drugs Have You Used? Opiates Information not available 05/07/2023 Do You Or Have You Ever Used E-cigarettes Or Vape? Never Used Electronic Cigarettes Information not available 05/07/2023 What Is The Highest Grade Or Level Of School You Have Completed Or The Highest Degree You Have Received? 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 1-2 Times Per Week Information not available 05/07/2023 When Did You Quit Smoking? 6-10yearssince lastcigarette Information not available 05/07/2023 Do You Work In Healthcare? No Information not available 05/07/2023 How Many Times In The Past Year Have You Used An Illegal Drug Or Used A Prescription Medication For Nonmedical Reasons? 0 Information not available 05/07/2023 Would You Say That, In General, Your Health Is Fair Information not available 02/11/2024 Women Aged 18-50 - Would You Like To Become In The Next Year? (Female Patients Only) No Information not available 05/07/2023 How Often Does Anyone, Including Family, Physically Hurt You? Never Information not available 05/07/2023 How Often Does Anyone, Including Family, Insult Or Talk Down To You? Never Information no t available 05/07/2023 How Often Does Anyone, Including Family, Threaten You With Harm? Never Information not available 05/07/2023 How Often Does Anyone, Including Family, Scream Or Curse At You? Never Information not available 05/07/2023 Within The Past 12 Months, You Worried That Your Food Would Run Out Before You Got Money To Buy More. Never True Information n ot available 05/07/2023 Within The Past 12 Months, The Food You Bought Just Didn't Last And You Didn't Have Money To Get More. Never True Information n ot available 05/07/2023 How Hard Is It For You To Pay For The Very Basics Like Food, Housing, Medical Care, And Heating? Would You Say It Is: Not Hard At All Information not available 05/07/2023 In The Past 12 Months, Has Lack Of Reliable Transportation Kept You From Medical Appointments, Meetings, Work Or From Getting Things Needed For Daily Living? Yes Information not available 05/07/2023 What Is Your Housing Situation Today? I Have Housing. Information not available 05/07/2023 How Often In The Past Year Have You Used Marijuana (including Smoking, Vaping, Dabbing, Or Edibles)? 2-3 Times Per Week Information not available 02/11/2024 How Often In The Past Year Have You Used Prescription Medications That Were Not Prescribed To You? Never Information n ot available 02/11/2024 How Often In The Past Year Have You Taken Your Own Prescription Medication More Than The Way It Was Prescribed Or For Different Reasons Than Its Intended Purpose? Never Information no t available 02/11/2024 How Often In The Past Year Have You Used Other Drugs (for Example, Heroin, Cocaine, Meth, Salvia, Inhalants)? Never Information not available 02/11/2024 Have You Ever Used IV Drugs? No Information not available 02/11/2024 Date Of Most Recent SBINS 02/11/2024 Information not available 02/11/2024 What Was The Date Of Your Most Recent Tobacco Screening? 02/11/2024 Information not available 02/11/2024 Have You Ever Been Counseled For Unhealthy Alcohol Use? No Information not available 05/07/2023 At What Age Did You Start Smoking Tobacco? 12 Information not available 05/07/2023 Do You Or Have You Ever Used Smokeless Tobacco? Never Used Smokeless Tobacco Information not available 05/07/2023 What Types Of Sporting Activities Do You Participate In? Hike ,bike Information not available 05/07/2023 Do You Use Any Illicit Or Recreational Drugs? Yes Information not available 05/07/2023 Has Tobacco Cessation Counseling Been Provided? No Information not available 12/12/2023 How Many Years Have You Smoked Tobacco? 20 Information not available 05/07/2023 Have You Used IV Drugs? No Information not available 05/07/2023 Are You Currently In School? No Information not available 05/07/2023 Do You Have Any Dietary Restrictions? No Information not available 05/07/2023 Do You Or Have You Ever Used Any Other Forms Of Tobacco Or Nicotine? Yes Information not available 05/07/2023 Sex: Female Functional Status Question Answer Note LastModified by Organization D etails LastModified Time What is your exercise level? Moderate Information not available 05/07/2023 Mental Status None recorded. Family History Relationship Description Onset Age of this Age Resolved Age Notes Father Heart disease Brother Schizophrenia 15 Father Diabetes mellitus Notes:*Problem: Reviewed Mother: alive age Father: alive age Children: none Family History of: Hypertension: yes Hyperlipidemia: yes Coronary heart disease: no Diabetes mellitus: yes Breast cancer: no Colorectal cancer: no Alcoholism: no Mental illness: yes depression Other: glaucoma,stroke Medical History No medical history recorded. Gynecological HistoryNo gynecological history recorded. Obstetrics History GPAL:G 0 P 0 0 0 0 Immunizations Vaccine Type Date Status Provider Name and Address Organization Details Recorded Time Td (adult), 2 Lf tetanus toxoid, preservative free, adsorbed 03/21/2017 completed Not Available [facility] 04/25/2023 06:14:20 Tdap 10/09/2006 completed Not Available [facility] 06:14:21 Influenza, split virus, quadrivalent, PF 03/20/2022 completed Not Available [facility] 04/25/2023 06:14:21 Influenza, split virus, quadrivalent, preservative 03/21/2017 completed Not Available [facility] 04/25/2023 06:14:21 COVID-19, mRNA, LNP-S, PF, 30 mcg/0.3 mL dose 07/13/2021 completed Not Available [facility] 04/25/2023 06:14:21 COVID-19, mRNA, LNP-S, PF, 30 mcg/0.3 mL dose 12/26/2020 completed Not Available [facility] 04/25/2023 06:14:21 COVID-19, mRNA, LNP-S, PF, 30 mcg/0.3 mL dose 01/16/2021 completed Not Available [facility] 04/25/2023 06:14:21 COVID-19, mRNA, LNP-S, bivalent, PF, 30 mcg/0.3 mL dose 03/20/2022 completed Not Available [facility] 04/25/2023 06:14:21 HPV, quadrivalent 10/23/2006 completed Not Available [facility] 04/25/2023 06:14:21 HPV, quadrivalent 03/03/2007 completed Not Available [facility] 04/25/2023 06:14:21 HPV, quadrivalent 05/14/2007 completed Not Available [facility] 04/25/2023 06:14:21 influenza, unspecified formulation 03/02/2012 completed Not Available [facility] 04/25/2023 06:14:21 influenza, unspecified formulation 03/18/2011 completed Not Available [facility] 04/25/2023 06:14:21 influenza, unspecified formulation 03/19/2007 completed Not Available [facility] 04/25/2023 06:14:21 influenza, unspecified formulation 04/11/2006 completed Not Available [facility] 04/25/2023 06:14:21 influenza, unspecified formulation 04/27/2015 completed Not Available [facility] 04/25/2023 06:14:22 influenza, unspecified formulation 05/15/2010 completed Not Available [facility] 04/25/2023 06:14:22 influenza, unspecified formulation 05/25/2008 completed Not Available [facility] 04/25/2023 06:14:22 Past Encounters Encounter ID Performer Location Encounter Start Date Encounter Closed Date Diagnosis/Indication Diagnosis SNOMED-CT Code [id number] CHANEL TESFAYE MD [place] [address] [place] [address] 11/12/2023 09:56:47 11/12/2023 10:33:56 Attention deficit hyperactivity disorder, predominantly inattentive type 15404447 Liver enzy mes level above reference range [id number] Nausea and vomiting 1693 1999 Candidiasis of vagina 72 [id number] CHANEL TESFAYE MD [facility] [address] [place] [address] 12/12/2023 09:28:57 12/12/2023 10:45:37 Nausea and vomiting [id number] Dysuria 12137847 Right uppe r quadrant pain [id number] Health Concerns Section Related Observation LastModified by Organization Detai ls LastModified Time None Recorded Concern Status LastModified by Organization Details LastModified Time None Recorded Payers Encounter Date Sequence Insurance Name Policy Number Policy Leach Covered Member ID Leach Member ID Guarantor Name 12/12/2023 1 [facility] (MEDICAID) Yuliet Ashton [id number] Yuliet Del Cid Fordyce Notes Date Note Type Note Provider Name and Address Organization Details Recorded Time 12/12/2023 text/html HPI Notes: Moises devine is still having ongoing n/v and abd pain. She has not vomited since 12/08, still nausea Shooting pain RUQ. If she does not eat anything she feels a bit better, slight nausea, smaller meals better. Nausea worse if she eats. She is avoiding gluten and dairy and sugar. Has not been able to find any pattern in what foods make her feel worse. She went to urgent care they said she has a UTI, urine was sent out-but not sent for culture as it appeared to be a contaminated specimen.. And Mikki Braga called her and confirmed it wasn't a UTI. She cont abx therapy, she has one left. She still has to pee all the time,and she had a strong urge to urinate 4-5 days ago and peed herself. Since then symptoms are definitely better. She took diflucan after the antibiotic. Has one more dose. Sometimes burning in epigastrium. but not up into esophagus, more skin superficial. Constant REYES's since Friday. She saw the edi programmer analyst and had a a normal colonoscopy with normal random biopsies. She also underwent a barium swallow which was normal. Her liver function tests were mildly elevated but were coming down, both testing for autoimmune and infectious causes of hepatitis are all negative. She had an abdominal ultrasound that did not show any n hydronephrosis, gallbladder was normal, it did note fatty infiltration of the liver. She has lost another 7 pounds in the last month because she is avoiding as much as possible eating which exacerbates her nausea and vomiting. when she does eat she tends to eat healthy foods that are low-fat. CHANEL TESFAYE MD [address], [place], [address], [facility]. 12/12/2023 17:47:00 OBGyn Episode No OBEpisode recorded.
[2024-02-11 19:59] LABS: ALT 48 U/L (14-59); AST 25 U/L (15-37); Albumin 3.7 g/dL (3.4-5.0); Alkaline Phosphatase 80 U/L (46-116); Bilirubin, Direct 0.1 mg/dL (0.0-0.2); Bilirubin, Total 0.37 mg/dL (0.2-1.0); Total Protein 7.1 g/dL (6.4-8.2)
== END 2024-02-11 12:28 | disposition home or self-care (01) ==
LOC: NCHCN 12:27
PROVIDERS: PCP Family Medicine; Visit Provider Family Medicine
DX: R74.01 Elevation of levels of liver transaminase levels (principal)
CPT/HCPCS: 80076

== ENCOUNTER 2024-03-02 06:19 | Day surgery (SDC) | payer MEDICAID, SELFPAY ==
--- NOTE | 2024-03-01 09:28 | W.PM.HP.N ---
Date of service: 03/02/24 Time of Service: 07:39 Assessment and Plan Assessment and plan (1) Marijuana use: Status: Acute (2) Depression: Status: Chronic (3) Excessive use of nonsteroidal anti-inflammatory drugs (NSAIDs): Status: Acute (4) Hypertension: Status: Chronic (5) Nausea and vomiting: Status: Acute (6) SCHWARTZ (nonalcoholic steatohepatitis): Status: Acute (7) Right upper quadrant pain: Status: Acute Assessment and plan: Informed consent is obtained for the procedural (explained in simple layman's terms that the pt. and/or family could understand) explaining risks vs benefits and alternatives to the procedure and consequences if we do not do the procedure and need/rational for the procedure. Risks include but are not limited to: bleeding, infection, perforation of esophagus, stomach, colon, small intestines, bronchus or trachea, or PTX. This would necessitate emergency surgery to repair the damage w/ possible ostomy; and other associated complications w/ the required surgery. Also complications of anesthesia including aspiration, NE/CVA/. (8) Migraine: Status: Chronic (9) Migraines: History of Present Illness Narrative: Marijuana use: (2) Depression: (3) Hypertension: (4) Nausea and vomitin. Intractible N/V The patient's recent colonoscopy yielded normal results. A stomach scope will be scheduled for further evaluation. The risks, benefits, and alternatives of the procedure were thoroughly explained. intractable n/v. Informed consent is obtained for the procedural (explained in simple layman's terms that the pt. and/or family could understand) explaining risks vs benefits and alternatives to the procedure and consequences if we do not do the procedure and need/rational for the procedure. Risks include but are not limited to: bleeding, infection, perforation of esophagus, stomach, colon, small intestines, bronchus or trachea, or PTX. This would necessitate emergency surgery to repair the damage w/ possible ostomy; and other associated complications w/ the required surgery. Also complications of anesthesia including aspiration, NE/CVA/. MRCP -doesn't know results. hida- delay GI thinks she has sphincter of Jp spasm (5) Right upper quadrant pain: (6) Migraine: (7) Obesity: (8) Opioid dependence in remission: (9) SCHWARTZ (nonalcoholic steatohepatitis): RN:pt here for nausea, states completed one month of omeprazole with no change, pt reports was taking 150mg CBD BID of which she reports she stopped 2 weeks ago. The patient is a 38-year-old female who presents for evaluation of stomach pain. She underwent a colonoscopy at [facility], which yielded normal results. Following a bout of influenza in 09/2022, she has eliminated gluten, sugar, and dairy from her diet, which has resulted in persistent pain during both eating and non-meal. She has undergone a HIDA scan, barium swallow, and an MRCP at [place]. An endoscopy has been scheduled, but Dr. Hanley has suggested an MRCP due to potential gallbladder muscle seizing. Her pain, which occasionally radiates to her back, varies in intensity. Approximately 1.5 months ago, she suspected a urinary tract infection (UTI), but a urinalysis conducted at urgent care confirmed the diagnosis. However, a week later, her primary care physician confirmed the diagnosis. She describes her pain as reminiscent of a previous kidney stone pain, but an ultrasound ruled out kidney stones. She has lost significant weight due to reduced food intake. Despite taking Prilosec for a month, her pain persists. Sitting provides some relief, but driving exacerbates her pain. She describes the pain as a burning sensation on her skin. She denies difficulty swallowing, heartburn, or indigestion. She has noticed blood in her stool, which started after the banding last week. The bleeding, which occurred about 4 ounces at a time, decreased but returned two days ago. Initially, she noticed spotting in her underwear, but this has since ceased. She occasionally strains during bowel movements, sometimes going 4 to 7 days without a bowel movement, or experiencing diarrhea. Her diet excludes fruits, vegetables, and meat, and she avoids processed food, opting for chicken instead. She denies a history of heart attack, stroke, sleep apnea, asthma, diabetes, or daily aspirin use. She avoids Tylenol or ibuprofen due to liver issues. She uses marijuana twice a week, but stopped when her symptoms first appeared. She denies any other surgeries or issues with anesthesia. I did review her GI consult from [facility] and BS and CE reports from [facility] Pt uses THC products regularly. She stopped for a month and nausea didn't improve. She has had 2 sections. The patient has never had an EGD previously. ? There is no family history of any esophageal/gastric cancer.? RUQ pain that raidates into her back/shoulder. she cut out dairy and gluten/suger and didn't help. she is always nause and can't eat. She is losing wt. 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 took omeprazole for a month and didn't help. Seh can go a whole day w.outt eat. feel like her skin is burning. Swallowing: no Reflux/Wet Burps: Nausea/vomiting: nausea Epigastric pain: no Chest pain/burning: in RUQ Melena/blood in stools/anemia: +blood in stools. She did have an I hemorrhoid banding. a week ago. She gets a large amount of blood when she has bm. Constipation or diarrhea: occ constipation. she won't move her bowels for 4-7 days and than she will move her bowels or diarrhea constantly. Dental issues: Nocturnal problems: Prior head/neck/esophageal surgery or radiation. Coffee: Soda/Tea: ASA/NSAID?s: Tobacco: THC: ETOH: They deny any problems with anesthesia in the past. Anesthesia: general (without airway) Previous surgical intolerances: No Previous surgical complications: No Pulmonary risk factors: Planned procedure: Yes Sleep apnea risks: No COPD/Asthma/Smoker: no Hx of NE/CVA: no Hx of Cardiac conditions: no Can climb one flight of stairs (12-13 steps) in less than 30 seconds without stopping and without symptoms: Yes The surgery proposed for this patient is: low risk Active cardiac conditions: none Active risk factors: none ASA (acetylsalicylic acid): not used Beta blockers: not used Kidneys: no concerns DM: no THC- twice a week. She stopped using cannabis products for a month and did not make any difference. ?Patient needs to be Natural airway general because of:? Medical conditions/airway control/ ?Pain control? Meds/NKDA/PMHx/PSHx: see [facility] PSHx C section x2 CE- see reports anesthesia - none Review of Systems All systems reviewed & are unremarkable except as noted in HPI and below PFSH All Active Problems SCHWARTZ (nonalcoholic steatohepatitis) (Acute) Excessive use of nonsteroidal anti-inflammatory drugs (NSAIDs) (Acute) Marijuana use (Acute) Right upper quadrant pain (Acute) Nausea and vomiting (Acute) Depression (Chronic) Hypertension (Chronic) Migraine (Chronic) Medical History Obesity Recurrent major depression Opioid dependence in remission PTSD (post-traumatic stress disorder) Pt states no potential triggers Insomnia Iridocyclitis Generalized pustular psoriasis Diarrhea History of abnormal cervical Pap smear History of risk factor for suicide Recurrent candidiasis of vagina HPV (human papilloma virus) anogenital infection + Jun 2021 and May 2020. Normal cytology. Colposcopy 09/2022: normal Needs repeat pap 09/2023 Suspected cervical cancer Anterior uveitis ADD (attention deficit disorder) Anxiety Migraines Surgical History History of colonoscopy (~12/03/23) [place] normal colonoscopy w/ normal random bx, internal hemorrhoids section Hemorrhoidectomy Family History Other Diabetes Hypertension Social History Smoking/Tobacco Use Status: Former Tobacco Use Quit Date: 06/16/16 Smoking risk assessment performed?: Yes Alcohol Intake: never Drug use: Occasionally Substance use type: marijuana Housing: apartment Sexually active: Yes Current gender identity: female Gretchen/Islam: Other Do you feel safe at home: Yes Do you feel safe in your relationship?: Yes Female Reproductive History Menstrual Age of Menarche: 11 Duration of menses: 3-5 days control method: pills History History 3 Para Hx # Term Pregnancies 2 Multiple births Hx # Pregnancies Ectopic pregnancies AB induced Hx Number of Living Children AB spontaneous 1 Past Pregnancies Del. Date GA/Weeks # Preg Succ Route Wgt Sex Labor Lgth Anesthesia Location Prov Complic 08/12/06 40 Yes 3770.487 g Male [facility] 10/24/09 Yes 3798.836 g Female [facility] Meds Allergies and Home Medications Allergies Allergy/AdvReac Type Severity Reaction Status Date / Time tioconazole (From Monistat 1) Allergy Intermediate Swelling/Ed Verified 03/02/24 06:30 erinn methotrexate Allergy Mild Contraindic Verified 03/02/24 06:30 ated Home Medications ?Medication ?Instructions ?Recorded ?Confirmed ?Type ondansetron HCl 4 mg tablet 4 mg PO PRN 11/08/14 03/02/24 History (Zofran) eletriptan 20 mg tablet (Relpax) 20 mg PO PRN 09/23/17 03/02/24 History lisdexamfetamine 30 mg capsule 30 mg PO DAILY 09/26/22 03/02/24 History (Vyvanse) lisdexamfetamine 40 mg capsule 40 mg PO QAM 09/26/22 03/02/24 History (Vyvanse) magnesium oxide 400 mg PO DAILY 09/26/22 03/02/24 History norgestimate 0.18 mg/0.215 mg/0.25 1 tab PO DAILY 09/26/22 03/02/24 History mg-ethinyl estradiol 25 mcg tablet lisinopril 2.5 mg tablet 5 mg PO DAILY 01/14/24 03/02/24 History rizatriptan 10 mg tablet See Rx Instructions PO .COMPLEX 01/14/24 03/02/24 History riboflavin (vitamin B2) 25 mg 25 mg PO DAILY 01/26/24 03/02/24 History tablet topiramate 50 mg capsule,extended 50 mg PO DAILY 01/26/24 03/02/24 History release 24 hr Exam Const Other: PHYSICAL EXAM GENERAL APPEARANCE: Alert, healthy appearance, oriented, x 3,? in no acute distress HYDRATION: Well hydrated HEAD, EYES, EARS, NECK, THROAT: Head is normocephalic, pupils equal, round, reactive to light and accommodation, ocular movement intact, sclera clear and no jaundice. ?Dentition intact. LUNGS: normal respiration/normal chest excursion. ?Clear to auscultation bilaterally. ?No wheeze. ?HEART: Regular rate and rhythm. no murmurs ABDOMEN: soft and non-tender to palpation.? Normal bowel sounds.? Time Spent Time spent with Patient: <40 minutes Time was spent: preparing to see the patient(eg.review tests), obtaining and/or reviewing separately otained hiistory, ordering medications,tests, procedures, referring, communicating with other health dialysis patient care technician, indepentently interpreting results, counseling the patient, care coordination and other
--- NOTE | 2024-03-01 11:52 | W.PM.ENDDOP ---
Date of service: 03/02/24 Time of Service: 08:04 Endoscopy Report DATE OF PROCEDURE: 03/02/24 PRE-OP DIAGNOSIS: ruq pain and persistent nausea/neg GB work-up POST-OP DIAGNOSIS: other (Gastritis in the distal one third of the stomach) SURGEON: Yuni Covington ANESTHESIA TYPE: General:No Airway ESTIMATED BLOOD LOSS: 2 PATHOLOGY: other COMPLICATIONS: None DISPOSITION: same day PREP: Miralax/Dulcolax PROCEDURE DESCRIPTION: Informed consent was obtained from the pt; explaining the benefits and Risks: bleeding, infections, perforations {which could require surgery or antibiotics and prolonged hospital stay}, or ostomy, and complications of anaesthesia, liya aspiration). The patient was take to the procedure room and placed in a supine position. Monitors were applied and a time out was done. The patients name, date of , procedure type, allergies to medications and metal in their body was reviewed. A bite block was placed and the patient was sedated. Once sedated and comfortable an Olympus gastroscope (see RN notes for scope #) was advanced through the oropharynx which was grossly normal, and passed into the esophagus. The proximal and mid-esophagus were normal. The distal esophagus does not show any: dilation/strictures/varices/erosions or ulcers/bleeding noted. The scope was advanced into the stomach and through the pylorus into the proximal jejunum. A bx is taken for celiac Dx . The duodenum was noted to be normal. Biopsies were done of the duodenal bulb.. The scope was retracted back into the stomach and biopsies were taken of the antrum. There is a mild gastritis radiating in a straight fashion from the antrum. Biopsies are taken. There were no gastropathy/ ulcers/masses noted. The scope was retroflexed. The cardia and fundus were noted to be normal. There were no a hiatal hernia noted. The scope was retracted back into the esophagus and biopsies were done of the GE junction (in all 4 quadrants) and distal esophagus (2cm above the GE junction) to rule out Reza's. All specimens are retrieved and no bleeding was noted. The Z line was regular. The GE junction was at 38 cm. The scope was removed and the patient was woken up and taken back to [facility] in stable condition.
--- NOTE | 2024-03-01 11:53 | PDOC.DSDIS_ITS ---
Date of service: 03/02/24 Time of Service: 08:18 Discharge Plan Disposition Patient Disposition: Home Condition: Good Discharge Details Reason For Visit: egd Attending Provider: Yuni Covington Primary Care Provider: Chanel Tesfaye Home Meds and New Rx's Prescriptions: New pantoprazole [Protonix] 40 mg tablet,delayed release (DR/EC) 40 mg PO DAILY Qty: 90 6RF Continued lisdexamfetamine [Vyvanse] 40 mg capsule 40 mg PO QAM lisdexamfetamine [Vyvanse] 30 mg capsule 30 mg PO DAILY Patient Comments: 09/26/22- Pt states she takes in afternoon magnesium oxide 400 mg magnesium capsule 400 mg PO DAILY norgestimate-ethinyl estradiol 0.18/0.215/0.25 mg-25 mcg tablet 1 tab PO DAILY riboflavin (vitamin B2) 25 mg tablet 25 mg PO DAILY topiramate 50 mg capsule,extended release 24hr 50 mg PO DAILY ondansetron HCl [Zofran] 4 MG tablet 4 mg PO PRN eletriptan [Relpax] 20 MG tablet 20 mg PO PRN lisinopril 2.5 mg tablet 5 mg PO DAILY rizatriptan 10 mg tablet See Rx Instructions PO .COMPLEX Rx Instructions: take 1 tab at onset of headache; if no relief may repeat 1 tab after at least 2 hrs; max = 3 tabs/24 hr PO Discharge Instructions Additional Instructions: Post EGD Instruction ?You had anesthesia for your EGD/stomach scope today.? For your safety, please do the following for the next twenty-four (24) hours: Do Not operate a motor vehicle (car, truck, motorcycle, etc.) Do Not drink alcoholic beverages or use any recreational drugs for the first 24 hours or while taking pain medications. The medications in your body may have a reaction that can be dangerous. Do Not make any important decisions or sign any important papers You have just had a gastroscopy (EGD) or upper GI tract examination. It is important for your smooth recovery that you carefully follow the recommendations below. Do not hesitate to call if any questions should arise about your anesthesia, condition, or care. -Symptoms you may experience during the next 24 hours: ?1. Mild abdominal pain or excessive gas or a bloated feeling which improves with rest, liquids, eating? slightly, and walking as tolerated. 2. Drowsiness and/or forgetfulness because of the medications you were given. 3. A sore throat which you can treat with throat lozenges or by gargling with salt water 4-5 times a day. 4. Redness at the site of your IV which you can treat with warm compresses. SPECIAL INSTRUCTIONS: 1. You may resume your previous diet in one hour. We recommend a light meal to start, then progress as tolerated. 2. Restart regular medications in one hour. 3. No aspirin or non-steroidal containing medication for 24 hrs. 4. No lifting over 20 pounds or strenuous activity for the first 24 hours after your procedure. After 24 hours there are no restrictions on your activity, but you may feel fatigued for a few days. -Findings: mild gastritis -Medications:protonix -Continue to follow lifestyle modifications: No alcohol, tobacco products, Aspirin or NSAID's (ibuprofen, Motrin, Naprosyn, aleve, etc).? Try to limit/avoid:? soda pop/any carbonated beverages, caffeine (including tea & chocolate), and acidic foods, (tomatoes, citrus, onions, peppermints) spicy or fried/fatty foods. Do not lie down for 30 minutes after eating, and do not eat 2 hours prior to bedtime. Avoid wearing tight fitting clothing/ belts. Don't smoke any combustable products, tobacco or THC. Both of these are hard on your stomach. Follow up: -My office will send a letter with the results of your biopsy?s in 2-3wks time. Call the office at [phone] (Office) or [phone] (Hospital), or go to the ER right away if you notice any of the followin. Vomiting blood and /or ?coffee ground? material. ?2. Worsening of abdominal pain or cramping. ?3. Trouble with breathing, cough, and/or fever (temperature above 101.5 F). 4. Increasing pain with swallowing. ?5. Chest pain. 6. Any new symptoms. 7. Worsening of the redness at the IV site Activity:: see above Diet:: see above Discharge Orders Discharge Orders: Discharge Order (Routine); Ordered 03/02/24 Ordered By: Yuni Covington DS: Diagnosis Discharge Diagnosis (1) Marijuana use: Status: Acute (2) Depression: Status: Chronic (3) Excessive use of nonsteroidal anti-inflammatory drugs (NSAIDs): Status: Acute (4) Hypertension: Status: Chronic (5) Nausea and vomiting: Status: Acute (6) SCHWARTZ (nonalcoholic steatohepatitis): Status: Acute (7) Right upper quadrant pain: Status: Acute (8) Migraine: Status: Chronic (9) Gastritis: Status: Acute Asessment and Plan: Patient is seen and examined after they are endoscopy.? Patient has minimal sore throat.? They have been able to tolerate liquids.? They do not have any nausea vomiting.? They are not having any chest pain or shortness of breath.? They have been able to pass gas and are not having any abdominal pain or distention.? They have not vomited any blood.? The vital signs have been stable-see nursing notes. We discussed findings on their endoscopy. We reviewed the importance of lifestyle modification-see discharge instructions We reviewed any new medications that the patient may be prescribed-see discharge instructions Patient will either be sent a letter with the biopsy results or follow-up in the office-see discharge instructions. Patient was given explicit instructions to follow-up regarding post endoscopy- refer to discharge Patient verbalized understanding and discharged in stable and satisfactory condition.? See nursing notes.
[2024-03-02 06:32] VITALS: BP 107/74; PULSE 64; RESP 18; TEMP 36.7; O2SAT 95
[2024-03-02 06:59] VITALS: BMI 32.8
--- NOTE | 2024-03-02 06:59 | ANES.PREOP_ITS ---
General Info Date of Service Date Performed: 03/02/24 Height: 5 ft 7 in Weight: 94.9 kg Body Mass Index (BMI): 32.8 Surgical Procedure: Operation Date: 03/02/24 07:35 Proposed Procedure Side Surgeon p Gastroscopy Yuni Covington, DO Meds Allergies and Home Medications Allergies Allergy/AdvReac Type Severity Reaction Status Date / Time tioconazole (From Monistat 1) Allergy Intermediate Swelling/Ed Verified 03/02/24 06:30 erinn methotrexate Allergy Mild Contraindic Verified 03/02/24 06:30 ated Home Medication ?Medication ?Instructions ?Recorded ondansetron HCl 4 mg tablet 4 mg PO PRN 11/08/14 (Zofran) eletriptan 20 mg tablet (Relpax) 20 mg PO PRN 09/23/17 lisdexamfetamine 30 mg capsule 30 mg PO DAILY 09/26/22 (Vyvanse) lisdexamfetamine 40 mg capsule 40 mg PO QAM 09/26/22 (Vyvanse) magnesium oxide 400 mg PO DAILY 09/26/22 norgestimate 0.18 mg/0.215 mg/0.25 1 tab PO DAILY 09/26/22 mg-ethinyl estradiol 25 mcg tablet lisinopril 2.5 mg tablet 5 mg PO DAILY 01/14/24 rizatriptan 10 mg tablet See Rx Instructions PO .COMPLEX 01/14/24 riboflavin (vitamin B2) 25 mg 25 mg PO DAILY 01/26/24 tablet topiramate 50 mg capsule,extended 50 mg PO DAILY 01/26/24 release 24 hr Current Visit Medications: Current Medications Generic Name Dose Route Start Last Admin Trade Name Freq PRN Reason Stop Dose Admin Ringer's Solution 1,000 mls @ 80 mls/hr 03/02/24 06:00 IV 03/31/24 23:59 INFUSION [facility] IV Miscellaneous Supplies 1 each 03/02/24 06:00 Iv Access IV 03/31/24 23:59 DIRECTED [facility] Ondansetron HCl 4 mg 03/02/24 11:48 Ondansetron 4 Mg/2 Ml Vial IVP 04/01/24 11:47 Q4H PRN PRN Nausea / Vomiting Sodium Chloride 0 ml 03/02/24 06:00 Normal Saline Flush 10 Ml Syr IV 03/31/24 23:59 PRN PRN Sodium Chloride 0 ml 03/02/24 06:00 Normal Saline 10 Ml Vial IJ 03/31/24 23:59 DIRECTED PRN Sterile Water 0 ml 03/02/24 06:00 Water,Injection,Sterile 10 Ml Vial IJ 03/31/24 23:59 DIRECTED PRN PFSH Active Problems Active Problems: Problem Status Onset Code SCHWARTZ (nonalcoholic steatohepatitis) Acute K75.81 Excessive use of nonsteroidal anti-inflammatory drugs (NSAIDs) Acute F19.90 Marijuana use Acute F12.90 Right upper quadrant pain Acute R10.11 Nausea and vomiting Acute R11.2 Depression Chronic F32.A Hypertension Chronic I10 Migraine Chronic G43.909 Medical History Medical History Obesity Recurrent major depression Opioid dependence in remission PTSD (post-traumatic stress disorder) Pt states no potential triggers Insomnia Iridocyclitis Generalized pustular psoriasis Diarrhea History of abnormal cervical Pap smear History of risk factor for suicide Recurrent candidiasis of vagina HPV (human papilloma virus) anogenital infection + Jun 2021 and May 2020. Normal cytology. Colposcopy 09/2022: normal Needs repeat pap 09/2023 Suspected cervical cancer Anterior uveitis ADD (attention deficit disorder) Anxiety Migraines Surgical History Surgical History History of colonoscopy (~12/03/23) Levan normal colonoscopy w/ normal random bx, internal hemorrhoids section Hemorrhoidectomy Tobacco Smoking/Tobacco Use Status: Former Tobacco Use Passive smoking exposure: No Alcohol Alcohol Intake: never Substance Use Substance use: Occasionally Substance use type: marijuana Prental History History 3 Para Hx # Term Pregnancies 2 Multiple births Hx # Pregnancies Ectopic pregnancies AB induced Hx Number of Living Children AB spontaneous 1 Past Pregnancies Del. Date GA/Weeks # Preg Succ Route Wgt Sex Labor Lgth Anesth esia Location Prov Complic 08/12/06 39 Yes 3770.487 g Male [facility] 10/24/09 Yes 3798.836 g Female [facility] Vital Signs and Lab Results Vital Signs Most Recent Vital Signs in EMR: Most Recent Vital Signs Temp Pulse Resp BP Pulse Ox 36.7 C 64 18 107/74 95 03/02/24 06:32 03/02/24 06:32 03/02/24 06:32 03/02/24 06:32 03/02/24 06:32 Point of Care Results Point of Care Results: POC- Test(urine) Negative 03/02/24 06:40 Lab Results Blood Type / Crossmatch: No Data to Display Complete Blood Count: No Data to Display Complete Metabolic Panel: Albumin 3.7 g/dL (3.4-5.0) 02/11/24 12:00 Liver Function Panel: Alanine Aminotransferase (ALT/SGPT) 48 U/L (14-59) 02/11/24 12: 00 Aspartate Amino Transf (AST/SGOT) 25 U/L (15-37) 02/11/24 12:00 Coagulation Panel: No Data to Display Cardiac Panel: No Data to Display Arterial Blood Gas: No Data to Display Venous Blood Gas: No Data to Display Pancreas Panel: No Data to Display Thyroid Panel: No Data to Display Infectious Disease: No Data to Display Blood Cultures: No Data to Display Toxicology Panel: No Data to Display Panel: No Data to Display Anesthesia Assessment and Plan Anesthesia History Personal History: No History of Anesthesia Complications Family History: No Family History of Anesthesia Complications Exercise Tolerance Exercise Tolerance: Metabolic Equivalents>4 Pertinent Negatives Pertinent Negatives: No Major Cardiovascular Symptoms or Complaints, No Major Pulmonary Symptoms or Complaints and No History of CVA/TIA Cardiac & Pulmonary Exam Cardiac Exam: Normal S1/S2 Heart Sounds Pulmonary Exam: Clear Bilateral Breath Sounds Implantable Cardiac Device Does patient have a Pacemaker or an ICD?: No Airway Exam Known Difficult Airway: No Mallampati Class: 2 Mouth Opening: Normal (> 3cm) Thyromental Distance: Greater than 3 cm Neck Range of Motion: Full ROM Neck Circumference: Normal Teeth Condition: Normal Dentition ASA Classification ASA Score: ASA 2 Emergency Case?: No NPO Status NPO Status: NPO Clears >2 hours, Solids >8 hours Status Status: Negative HCG Anesthesia Plan Resuscitation Status: Full Code Anesthesia Technique: General Anesthesia Airway Planned: Natural Airway Monitors Used: Standard Monitors
[2024-03-02] MEDS: Lactated Ringers 1,000 ML 80 ML IV (07:20)
--- NOTE | 2024-03-02 07:53 | STOM_PTH ---
PATIENT: Yuliet Ashton LOC: [facility] U#:[id number] AGE/SX: 38/F ROOM: RE03/02/[address]: Yuni Covington : 1985 BED: DIS: 03/02/2024 SPEC #: [id number] RECD: 03/02/24 12:29 STATUS: AWAIS RECullen #: [id number] ROMERO: 03/02/24 07:[address]: Yuni Covington DEPT: Surgical Specimen RECD BY: Debbie Sheehan ENTERED: 03/02/24 12:32 SP TYPE: STOMACH OTHR DR: Chanel Tesfaye Tissues: 1 - BIOPSY BOWEL 2 - BIOPSY BOWEL 3 - STOMACH BIOPSY 4 - STOMACH BIOPSY 5 - ESOPHAGUS BIOPSY 6 - ESOPHAGUS BIOPSY Procedures: GROSS AND MICRO LEVEL 4 Comments: [id number]
[2024-03-02 08:05] VITALS: BP 108/67; PULSE 73; RESP 20; TEMP 36.1; O2SAT 98
[2024-03-02 08:45] VITALS: BP 102/74; PULSE 59; RESP 17; TEMP 36.1; O2SAT 96
--- NOTE | 2024-03-02 09:27 | W.ANESPOSTOP ---
Postoperative Evaluation Date, Time and Location Date Performed: 03/02/24 Time Performed: 09:27 Patient Location: Day Surgery Unit Vital Signs Most Recent Imported Vital Signs: Most Recent Vital Signs Temp Pulse Resp BP Pulse Ox 36.1 C L 59 L 17 102/74 96 03/02/24 08:45 03/02/24 08:45 03/02/24 08:45 03/02/24 08:45 03/02/24 08:45 Pain Score Most Recent Pain Score: Most Recent Pain Score Pain Level 0 03/02/24 08:45 Assessment Mental Status: Awake (Alert & Oriented to Patient Baseline) Airway and Respiratory Function: Patent airway with normal (patient baseline) respiratory exam Cardiovascular Function: Hemodynamically Stable Hydration Status: Adequately Hydrated Nausea & Vomiting: No Nausea or Vomiting Pain: Pt. Denies Any Pain Peripheral Nerve Block: Patient did not receive a nerve block Postoperative Comments:: Patient seen as leaving DSU. Denied questions
== END 2024-03-02 09:20 | disposition home or self-care (01) ==
LOC: SUR 06:19
PROVIDERS: PCP Family Medicine; Visit Provider Surgery
PROC: 0DJ68ZZ Inspection of Stomach, Via Natural or Artificial Opening Endoscopic (ICD-10-PCS; CPT 43235; principal; 2024-03-02 07:30)
DX: R11.2 Nausea with vomiting, unspecified; R10.11 Right upper quadrant pain; K29.70 Gastritis, unspecified, without bleeding; K22.89 Other specified disease of esophagus
CPT/HCPCS: 43239; 81025; 88305; J2001; J2250; J2704

== ENCOUNTER 2024-05-28 10:20 | Outpatient (REF) | payer MEDICAID, SELFPAY ==
--- NOTE | 2024-05-28 09:45 | PAPFT_PTH ---
PATIENT: Yuliet Ashton LOC: [facility] U#:[id number] AGE/SX: 38/F ROOM: RE05/28/[address]: Destiny Mooney MD : 1985 BED: DIS: 05/28/2024 SPEC #: [id number] RECD: 05/28/24 13:31 STATUS: AWAIS REQ #: [id number] ROMERO: 05/28/24 09:[address]: Destiny Mooney DEPT: COUNT INCLUDES THE [facility] Cytology RECD BY: Debbie Sheehan ENTERED: 05/28/24 13:32 SP TYPE: PAPFT OTHR DR: Chanel Tesfaye Tissues: 1 - CX/ENDOCX FOR PAP SMEARS Procedures: PAP THIN PREP/UVM Screening HPV DNA PROBE Comments: [id number] (HPV 16 & 18/45)
== END 2024-05-28 10:21 | disposition home or self-care (01) ==
LOC: LBN 10:20
PROVIDERS: PCP Family Medicine; Visit Provider Obstetrics & Gynecology
DX: Z12.4 Encounter for screening for malignant neoplasm of cervix (principal)
CPT/HCPCS: 88142; 87624

== ENCOUNTER 2024-07-26 08:48 | Emergency (ER) | payer MEDICAID, SELFPAY ==
[2024-07-26 08:56] VITALS: BP 142/98; PULSE 94; RESP 16; TEMP 36.9; O2SAT 99
--- NOTE | 2024-07-26 09:03 | W.ED.GENAD ---
Discharge Plan Disposition Patient Disposition: Home Discharge Details Clinical Impression: BRBPR (bright red blood per rectum) Primary Care Provider: Chanel Tesfaye ED Provider: Byron Portillo Home Meds and New Rx's Prescriptions: Continued Mirena 21 mcg/24hr (up to 8 yrs) 52 mg intrauterine device 1 device intrauterine ONCE Rx Instructions: as a single dose lisdexamfetamine [Vyvanse] 40 mg capsule 40 mg PO QAM lisdexamfetamine [Vyvanse] 30 mg capsule 30 mg PO DAILY Patient Comments: 09/26/22- Pt states she takes in afternoon magnesium oxide 400 mg magnesium capsule 400 mg PO DAILY riboflavin (vitamin B2) 25 mg tablet 25 mg PO DAILY topiramate 50 mg capsule,extended release 24hr 50 mg PO DAILY ondansetron HCl [Zofran] 4 MG tablet 4 mg PO PRN eletriptan [Relpax] 20 MG tablet 20 mg PO PRN lisinopril 2.5 mg tablet 5 mg PO DAILY Patient Comments: changed to 5 mg/ this is now a duplicate rizatriptan 10 mg tablet See Rx Instructions PO .COMPLEX Rx Instructions: take 1 tab at onset of headache; if no relief may repeat 1 tab after at least 2 hrs; max = 3 tabs/24 hr PO lisinopril 5 mg tablet Patient Comments: TAKE ONE TABLET BY MOUTH EVERY DAY colestipol 1 gram tablet PO Patient Comments: TAKE TWO TABLETS BY MOUTH TWICE A DAY WITH A FULL GLASS OF WATER pantoprazole [Protonix] 40 mg tablet,delayed release (DR/EC) 40 mg PO DAILY Qty: 90 6RF Discharge Instructions Additional Instructions: You are seen in the emergency department for your rectal bleeding. As we discussed please call your general surgery team to arrange for follow-up. Please continue taking your stool softener. Please return to the emergency department if you have recurrent bleeding that does not stop. Your blood counts were within normal limits. You have no sign of any acute damage to your kidneys. Discharge Data Discharge Date/Time-TO BE ENTERED AT DEPARTURE: 07/26/24 10:36 HPI General Date/Time Provider Initiated Documentation: 07/26/24 09:03. HPI Narrative: MDM This is an overall well-appearing normothermic and not tachycardic 39-year-old female with bright red blood per rectum. No obvious signs of bleeding at the moment. Will obtain basic labs type and screen and touch base with general surgery. No history of inflammatory bowel disease to suggest increased risk for fistulization. No abdominal pain to suggest appendicitis. Not hypotensive nor tachycardic so my suspicion for acute blood loss anemia was low. Not an alcoholic to suggest increased risk for variceal bleed. Given no abdominal pain I am not concerned for diverticular bleed. No history of inflammatory bowel disease to suggest abscess and no fever so did not feel the patient required a CT scan. Based on age & history of hemorrhoids I am not concerned for AVM so I did not feel that patient needed a triple phase CT scan of her abd/pelvis. 07/27 Late charting due to patient care. Patient had a reassuring CBC with no signs of anemia. She had no recurrent bleeding in the emergency department. Her vital signs remained reassuring and she was not tachycardic. Was in touch with Dr. Galindo from the general surgery team. She advised that if the patient had no recurrent bleeding and was not anemic that an empiric trial of discharge with expectant outpatient management was warranted. Patient and I discussed that if she developed bleeding that did not stop that she should return to the emergency department. We also discussed that if she developed bleeding that she should refrain from sitting on the toilet as this certainly could exacerbate her bleeding by increasing her intra-abdominal pressure. We also discussed that she should call her general surgery team in [place] to arrange close outpatient follow-up. She is not on blood thinner to suggest increased risk for recurrent bleeding. Given that her heart rate normalized her [place] score for safe discharge after lower GI bleed was 8 points making her 95% probable of a safe discharge. HPI This is a 39-year-old female arrived to the emergency department via private vehicle in the setting of bright red blood per rectum. Patient is approximately 12 days status post hernial arterial ligation at [facility]. Patient reports that she has had multiple episodes of bright red blood per rectum that began this morning at 4 AM and it reoccurred at 7 AM. She denies syncope chest pain shortness of breath abdominal pain. She is having soft bowel movements and has been adherent with her stool softener. Denies dysuria and frequency. Patient is not taking anticoagulation. Exam General: Well-appearing in no acute distress speaking in complete sentences. Head: Normocephalic, atraumatic. Eye: Extraocular eye movements intact. No conjunctival injection. No scleral icterus. Ear, nose, mouth, throat: Grossly normal inspection. Normal voice, handling secretions normally. Neck: Trachea midline. Cardiovascular: Well-perfused distal extremities. Respiratory: Nonlabored respiration. Gastrointestinal: Nondistended abdomen. Soft. Nontender. Rectal: With the emergency department Conference Manager Sandra as a assembler seat I completed an external rectal exam. At the 9 o'clock position patient had a nonthrombosed hemorrhoid. I did not complete internal exam as I did not want to disrupt any medications that had been performed. Musculoskeletal: No edema. Moving all 4 extremities spontaneously. Skin: Normal for age and race, grossly normal temperature and turgor. No acute rash. Neurologic: Alert and appropriate, no apparent acute deficits. Psychiatric: Mood and manner are appropriate. Grooming and personal hygiene are appropriate. Related Data Home Medications ?Medication ?Instructions ?Recorded ?Confirmed ondansetron HCl 4 mg tablet 4 mg PO PRN 11/08/14 07/26/24 (Zofran) eletriptan 20 mg tablet (Relpax) 20 mg PO PRN 09/23/17 07/26/24 lisdexamfetamine 30 mg capsule 30 mg PO DAILY 09/26/22 07/26/24 (Vyvanse) lisdexamfetamine 40 mg capsule 40 mg PO QAM 09/26/22 07/26/24 (Vyvanse) magnesium oxide 400 mg PO DAILY 09/26/22 07/26/24 lisinopril 2.5 mg tablet 5 mg PO DAILY 01/14/24 07/26/24 rizatriptan 10 mg tablet See Rx Instructions PO .COMPLEX 01/14/24 07/26/24 riboflavin (vitamin B2) 25 mg 25 mg PO DAILY 01/26/24 07/26/24 tablet topiramate 50 mg capsule,extended 50 mg PO DAILY 01/26/24 07/26/24 release 24 hr pantoprazole 40 mg tablet,delayed 40 mg PO DAILY #90 tabs 03/02/24 07/26/24 release (Protonix) levonorgestrel 21 mcg/24 hr (up to 1 device intrauterine ONCE 05/28/24 07/26/24 8 years) 52 mg intrauterine device (Mirena) colestipol 1 gram tablet g PO 07/26/24 lisinopril 5 mg tablet mg 07/26/24 Previous Rx's ?Medication ?Instructions ?Recorded pantoprazole 40 mg tablet,delayed 40 mg PO DAILY #90 tabs 03/02/24 release (Protonix) Allergies Allergy/AdvReac Type Severity Reaction Status Date / Time tioconazole (From Monistat 1) Allergy Intermediate Swelling/Ed Verified 07/26/24 08:52 erinn methotrexate Allergy Mild Contraindic Verified 07/26/24 08:52 ated General Stated Complaint: GI Bleed MAYA: 3 Course Vital Signs Vital signs: Vital Signs Temperature 36.9 C 07/26/24 08:56 Pulse 94 H 07/26/24 08:56 Respiratory Rate 16 07/26/24 08:56 Blood Pressure 142/98 H 07/26/24 08:56 Pulse Oximetry 99 07/26/24 08:56 Temperature 36.9 C 07/26/24 08:56 Temperature Source Oral 07/26/24 08:56 Pulse 94 H 07/26/24 08:56 Respiratory Rate 16 07/26/24 08:56 Blood Pressure 142/98 H 07/26/24 08:56 Pulse Oximetry 99 07/26/24 08:56 Pain Level 5 07/26/24 08:56 Medical Decision Making Quality:SDOH Health Related Social Needs: No Data to Display PFSH All Active Problems (Updated 07/26/24 @ 10:20 by Byron Portillo MD) BRBPR (bright red blood per rectum) (Acute) Gastritis (Acute) SCHWARTZ (nonalcoholic steatohepatitis) (Acute) Excessive use of nonsteroidal anti-inflammatory drugs (NSAIDs) (Acute) Marijuana use (Acute) Right upper quadrant pain (Acute) Nausea and vomiting (Acute) Depression (Chronic) Hypertension (Chronic) Migraine (Chronic) Medical History (Updated 07/26/24 @ 10:20 by Byron Portillo MD) Presence of Mirena IUD Mirena IUD removed and replaced 05/28/14 Bleeding hemorrhoid Obesity Recurrent major depression Opioid dependence in remission PTSD (post-traumatic stress disorder) Pt states no potential triggers Insomnia Iridocyclitis Generalized pustular psoriasis Diarrhea History of abnormal cervical Pap smear May 2024: NIL/HPV+ ->colp: benign appearing Jun 2021: NIL/HPV+ -->Colposcopy 09/2022: normal May 2020: NIL/HPV+ History of risk factor for suicide Recurrent candidiasis of vagina HPV (human papilloma virus) anogenital infection + Jun 2021 and May 2020. Normal cytology. Colposcopy 09/2022: normal Needs repeat pap 09/2023 Anterior uveitis ADD (attention deficit disorder) Anxiety Migraines Surgical History (Updated 05/28/24 @ 09:04 by Concetta Montalvo RN) History of endoscopy History of colonoscopy (~02/2024) Elaina normal colonoscopy w/ normal random bx, internal hemorrhoids section Hemorrhoidectomy Family History Other Diabetes Hypertension Social History Smoking/Tobacco Use Status: Former Tobacco Use Quit Date: 06/16/16 Smoking risk assessment performed?: Yes Alcohol Intake: never Drug use: Occasionally Substance use type: marijuana Housing: apartment Sexually active: Yes Current gender identity: female Gretchen/Jewish: Other Do you feel safe at home: Yes Do you feel safe in your relationship?: Yes Female Reproductive History Menstrual Age of Menarche: 11 Duration of menses: 3-5 days control method: pills History History 3 Para Hx # Term Pregnancies 2 Multiple births Hx # Pregnancies Ectopic pregnancies AB induced Hx Number of Living Children AB spontaneous 1 Past Pregnancies Del. Date GA/Weeks # Preg Succ Route Wgt Sex Labor Lgth Anesthesia Location [facility] 08/12/06 39 Yes 3770.487 g Male [facility] 10/24/09 Yes 3798.836 g Female [facility]
[2024-07-26 09:49] LABS: ALT 36 U/L (14-59); AST 19 U/L (15-37); Albumin 3.6 g/dL (3.4-5.0); Alkaline Phosphatase 114 U/L (46-116); Anion Gap 5.5 mmol/L (3-11); BUN 18 mg/dL (7-18); Bilirubin, Total 0.27 mg/dL (0.2-1.0); CO2 29.5 mmol/L (21.0-32.0); CREATININE 1.2 mg/dL (0.55-1.02); Calcium 9.2 mg/dL (8.5-10.1); Chloride 108 mmol/L (98-107); Estimated GFR 58.69 (mL/min/1.73m2); Glucose 117 mg/dL (74-106); Potassium 3.9 mmol/L (3.5-5.1); Sodium 143 mmol/L (136-145); Total Protein 7.2 g/dL (6.4-8.2)
[2024-07-26 09:52] LABS: Abs Immature Grans 0.03 10^3/uL (0.0-0.06); Absolute Basophil Count 0.06 10^3/uL (0.0-0.2); Absolute Eosinophil Count 0.18 10^3/uL (0.0-0.7); Absolute Lymphocyte Count 2.01 10^3/uL (1.2-3.4); Absolute Monocyte Count 0.51 10^3/uL (0.1-0.8); Basophils % 0.8 %; Eosinophils % 2.4 %; HCT 45.5 % (36.0-46.0); HGB 14.5 g/dL (11.2-15.7); Immature Grans % 0.4 %; Lymphocytes % 27.2 %; MCH 28.8 pg (27.0-33.0); MCHC 31.9 % (32.0-36.0); MCV 90 fL (80-95); MPV 8.4 fL (8.0-11.0); Monocytes % 6.9 %; Neutrophils % 62.3 %; Platelet Count 306 10^3/uL (130-400); RBC 5.04 10^6/uL (3.93-5.22); RDW 12.5 % (11.7-14.6); RDW-SD 40.6 fL; WBC 7.39 10^3/uL (4.4-10.8)
[2024-07-26 10:06] LABS: HCG Qual (Serum) Negative
[2024-07-26 10:35] VITALS: BP 142/90; PULSE 76; RESP 16; O2SAT 99
== END 2024-07-26 10:36 | disposition home or self-care (01) ==
PROVIDERS: Emergency Provider Emergency Medicine; PCP Family Medicine
DX: K62.5 Hemorrhage of anus and rectum (principal); I10 Essential (primary) hypertension; Z98.890 Other specified postprocedural states; Z87.891 Personal history of nicotine dependence
CPT/HCPCS: 36415; 80053; 86850; 86900; 86901; 99283; 84703; 85025

== ENCOUNTER 2024-09-28 13:41 | Outpatient (REF) | payer MEDICAID, SELFPAY | END 2024-09-28 13:42 | disposition home or self-care (01) | LOC: LBN 13:41 | PROVIDERS: PCP Family Medicine; Visit Provider Obstetrics & Gynecology | DX: N89.8 Other specified noninflammatory disorders of vagina (principal) | CPT/HCPCS: 87480; 87510; 87660 ==

== ENCOUNTER 2024-10-14 10:02 | Emergency (ER) | payer MEDICAID, SELFPAY ==
[2024-10-14] VITALS (40 sets, daily range): BP systolic 100–140; BP diastolic 65–87; PULSE 66–102; RESP 7–28; TEMP 37.1; O2SAT 93–100
--- NOTE | 2024-10-14 10:45 | DI.CT_ITS ---
Exam(s) CT PELVIC W EXAM: CT PELVIC W CLINICAL HISTORY: abscess to L buttock TECHNIQUE: Imaging Protocol: Axial computed tomography images with coronal and sagittal reformatted images were created and reviewed CONTRAST MATERIAL: Intravenous: Omnipaque 350 Contrast volume:100 mL Oral: No COMPARISON: CT RENAL COLIC WO CONTRAST from 09/02/2016 FINDINGS: PELVIS: Abdominal Aorta: Abdominal portion non-dilated. Bowel: No obstruction or bowel wall thickening. Appendix is unremarkable. Peritoneal Cavity: No ascites, collection or mesenteric inflammatory response. Soft Tissues: In the left perianal soft tissues there is a peripherally enhancing fluid collection me asuring 5.4 AP by 4.9 transverse by 5.3 craniocaudad cm. It is most consistent with an abscess. Bladder: Symmetric distention, no gross wall thickening. Reproductive Organs: There is an IUD within the uterus. Lymph Nodes: Within normal limits. Bones: Within normal limits. IMPRESSION: 5.4 x 4.9 x 5.3 cm left perianal abscess. RADIATION DOSE DELIVERED: 1,012.21mGy.cm Total DLP 1,012.21mGy.cm Total DLP DATA REPOSITORY: All CT scans at this facility are submitted to the National Radiology Data Registry (NRDR) Dose Index Registry (DIR) with the [employer] ([employer]). RADIATION OPTIMIZATION: All CT scans at this facility use at least one of these dose optimization te chniques: automated exposure control; mA and/or kV adjustment per patient size (includes targeted exa ms where dose is matched to clinical indication); or iterative reconstruction.
[2024-10-14 10:55] LABS: Abs Immature Grans 0.04 10^3/uL (0.0-0.06); Absolute Basophil Count 0.04 10^3/uL (0.0-0.2); Absolute Eosinophil Count 0.06 10^3/uL (0.0-0.7); Absolute Lymphocyte Count 1.46 10^3/uL (1.2-3.4); Absolute Monocyte Count 0.88 10^3/uL (0.1-0.8); Basophils % 0.4 %; Eosinophils % 0.6 %; HCT 44.3 % (36.0-46.0); HGB 14.1 g/dL (11.2-15.7); Immature Grans % 0.4 %; Lymphocytes % 13.5 %; MCH 28.5 pg (27.0-33.0); MCHC 31.8 % (32.0-36.0); MCV 90 fL (80-95); MPV 8.6 fL (8.0-11.0); Monocytes % 8.2 %; Neutrophils % 76.9 %; Platelet Count 244 10^3/uL (130-400); RBC 4.94 10^6/uL (3.93-5.22); RDW-SD 39.7 fL; WBC 10.78 10^3/uL (4.4-10.8)
[2024-10-14 10:59] LABS: ESR 18 mm/hr (0-20)
[2024-10-14 11:15] LABS: Anion Gap 9.1 mmol/L (3-11); BUN 12 mg/dL (7-18); C-Reactive Protein 10.18 mg/dL (<or=0.5); CO2 26.9 mmol/L (21.0-32.0); CREATININE 1.2 mg/dL (0.55-1.02); Calcium 9.5 mg/dL (8.5-10.1); Chloride 106 mmol/L (98-107); Estimated GFR 58.69 (mL/min/1.73m2); Glucose 111 mg/dL (74-106); Potassium 4.1 mmol/L (3.5-5.1); Sodium 142 mmol/L (136-145)
[2024-10-14] MEDS: Normal Saline - Diluent 50 ML VIAL IJ (11:41)
[2024-10-14] MEDS: Omnipaque 350 MG/ML 500 ML BTL-Imaging package 100 ML IJ (11:48)
[2024-10-14] MEDS: Normal Saline Flush 10 ML SYR IVP ×3 (11:56→15:19)
[2024-10-14] MEDS: Ketorolac 15 MG/ML VIAL IVP (11:56)
[2024-10-14] MEDS: VANCOMYCIN 1,250 MG in Normal Saline 250 ML 166.6666 MG IVPB (12:29)
--- NOTE | 2024-10-14 13:34 | SCONE_ITS ---
Date of service: 10/14/24 Time of Service: 13:34 Assessment and Plan Assessment and plan (1) Abscess, perianal: Status: Acute Assessment and plan: 39-year-old woman with a perianal abscess. Unclear etiology but seems somewhat suspicious that it is only 6 or 7 weeks after a hemorrhoid procedure. Once the patient had received sedation (from emergency department physician) and she had already given written consent, she was examined: The perianal skin was indurated and erythematous and tender. There was no visible traumatic or surgical wound. There is a visible, benign?appearing skin tag on the ipsilateral side as the abscess consistent with prior hemorrhoid problems. The abscess was incised and drained with a cruciate incision. I gave the patient clear explanation that I am concerned there could be a underlying fistula as the cause of this abscess. And/or, a fistula could develop after this issue. I was very clear with her on not sure if this is related to her prior surgery, and if it is or is not, not sure how. She does not have the usual risk factors for this kind of abscess (not diabetic and no perianal trauma or IBD) Overall plan: Remove packing in 36 hours (Friday morning) Sitz bathes 3 times daily minimum for the next 2 weeks She can continue the antibiotic course that was already prescribed for her She can follow-up either with me next week or her hemorrhoid surgeon History of Present Illness Narrative: Patient is a 39-year-old woman who has an abscess around her anus. She says that she has had GI problems her whole life. She has had a lot of rectal bleeding in the past and has had emergency department visits for rectal bleeding. She had some sort of anal/hemorrhoid procedure performed about 6 or 7 weeks ago at [facility]. Unclear if this is related to that or not. She does not want to have anyone examine that area of her bottom setting PTSD and demands being put out to have any interventions or examinations performed. The abscess was identified on CT scan. She says she has had symptoms for at least a week. PFSH All Active Problems (Updated 10/14/24 @ 16:05 by Sonali Steve) Abscess, perianal (Acute) Gastritis (Acute) SCHWARTZ (nonalcoholic steatohepatitis) (Acute) Excessive use of nonsteroidal anti-inflammatory drugs (NSAIDs) (Acute) Marijuana use (Acute) Right upper quadrant pain (Acute) Nausea and vomiting (Acute) Depression (Chronic) Hypertension (Chronic) Migraine (Chronic) Medical History Presence of Mirena IUD Mirena IUD removed and replaced 05/28/14 Bleeding hemorrhoid Obesity Recurrent major depression Opioid dependence in remission PTSD (post-traumatic stress disorder) Pt states no potential triggers Insomnia Iridocyclitis Generalized pustular psoriasis Diarrhea History of abnormal cervical Pap smear May 2024: NIL/HPV+ ->colp: benign appearing Jun 2021: NIL/HPV+ -->Colposcopy 09/2022: normal May 2020: NIL/HPV+ History of risk factor for suicide Recurrent candidiasis of vagina HPV (human papilloma virus) anogenital infection + Jun 2021 and May 2020. Normal cytology. Colposcopy 09/2022: normal Needs repeat pap 09/2023 Anterior uveitis ADD (attention deficit disorder) Anxiety Migraines Surgical History History of endoscopy History of colonoscopy (~02/2024) [place] normal colonoscopy w/ normal random bx, internal hemorrhoids section Hemorrhoidectomy Family History Other Diabetes Hypertension Social History Smoking/Tobacco Use Status: Former Tobacco Use Quit Date: 06/16/16 Smoking risk assessment performed?: Yes Alcohol Intake: never Drug use: Occasionally Substance use type: marijuana Housing: apartment Sexually active: Yes Current gender identity: female Gretchen/Hinduism: Other Do you feel safe at home: Yes Do you feel safe in your relationship?: Yes Female Reproductive History Menstrual Age of Menarche: 11 Duration of menses: 3-5 days control method: pills History History 2 3 Para Hx # Term Pregnancies 2 Multiple births Hx # Pregnancies Ectopic pregnancies AB induced Hx Number of Living Children AB spontaneous 1 Past Pregnancies Del. Date GA/Weeks # Preg Succ Route Wgt Sex Labor Lgth Anesth esia Location Prov Complic 08/12/06 40 Yes 8 lb 5 oz Male [facility] 10/24/09 Yes 8 lb 6 oz Female [facility] Exam Narrative Exam Narrative: Gen: Non-toxic, comfortable and interactive Neuro: Alert and oriented x3 Psych: Crying and anxious mood and affect. Adequate insight and understanding into condition. Chest: Non-labored breathing, no wheezing, no visible shortness of breath. Heart: Regular Perianal examination: Deferred/refused Results Last Vital Signs Temp 98.7 F 10/14/24 10:26 Pulse 102 H 10/14/24 10:26 Resp 18 10/14/24 10:26 BP 131/87 10/14/24 10:26 Pulse Ox 98 10/14/24 10:26 Labs 10/14/24 10:45 10/14/24 10:45 Labs: Laboratory Results - last 24 hr 10/14/24 10:45 WBC 10.78 RBC 4.94 Hgb 14.1 Hct 44.3 MCV 90 MCH 28.5 MCHC 31.8 L RDW 12.0 Plt Count 244 MPV 8.6 Immature Gran % 0.4 Neutrophils % 76.9 Lymphocytes % 13.5 Monocytes % 8.2 Eosinophils % 0.6 Basophils % 0.4 Nucleated RBC % 0.0 Absolute Neutrophils 8.30 H Absolute Lymphocytes 1.46 Absolute Monocytes 0.88 H Absolute Eosinophils 0.06 Absolute Basophils 0.04 ESR 18 Sodium 142 Potassium 4.1 Chloride 106 Carbon Dioxide 26.9 Anion Gap 9.1 BUN 12 Creatinine 1.2 H Est GFR (CKD-EPI 2020) 58.69 Glucose 111 H Calcium 9.5 C-Reactive Protein 10.18 H Procedures Abscess I/D Site: other (Perianal) Side (if applicable): left Technique: incised with #11 blade (Adequately drained with a cruciate incision and packing placed.)
--- NOTE | 2024-10-14 14:13 | ED.GENADUL_ITS ---
Discharge Plan Disposition Patient Disposition: Home Discharge Details Clinical Impression: Abscess, perianal Primary Care Provider: Chanel Tesfaye ED Provider: Sonali Matthews Home Meds and New Rx's Prescriptions: No Action Mirena 21 mcg/24hr (up to 8 yrs) 52 mg intrauterine device 1 device intrauterine ONCE Rx Instructions: as a single dose lisdexamfetamine [Vyvanse] 40 mg capsule 40 mg PO QAM lisdexamfetamine [Vyvanse] 30 mg capsule 30 mg PO DAILY Patient Comments: 09/26/22- Pt states she takes in afternoon magnesium oxide 400 mg magnesium capsule 400 mg PO DAILY riboflavin (vitamin B2) 25 mg tablet 25 mg PO DAILY topiramate 50 mg capsule,extended release 24hr 50 mg PO DAILY sulfamethoxazole-trimethoprim [Bactrim DS] 800-160 mg tablet 1 tab PO BID 10 Days Qty: 20 0RF fluconazole 150 mg tablet 150 mg PO Q3D Qty: 3 0RF ondansetron HCl [Zofran] 4 MG tablet 4 mg PO PRN eletriptan [Relpax] 20 MG tablet 20 mg PO PRN lisinopril 2.5 mg tablet 5 mg PO DAILY Patient Comments: changed to 5 mg/ this is now a duplicate rizatriptan 10 mg tablet See Rx Instructions PO .COMPLEX Rx Instructions: take 1 tab at onset of headache; if no relief may repeat 1 tab after at least 2 hrs; max = 3 tabs/24 hr PO lisinopril 5 mg tablet 5 mg PO DAILY Patient Comments: TAKE ONE TABLET BY MOUTH EVERY DAY colestipol 1 gram tablet PO Patient Comments: TAKE TWO TABLETS BY MOUTH TWICE A DAY WITH A FULL GLASS OF WATER pantoprazole [Protonix] 40 mg tablet,delayed release (DR/EC) 40 mg PO DAILY Qty: 90 6RF Discharge Instructions Additional Instructions: Please call [facility] surgical office first thing in the morning to schedule follow- up appointment next week. Continue your Bactrim for the full course. Packing has been placed, please remove on Friday. You may do this in the shower or have somebody else help you remove it. Take Tylenol 650 mg every 6 hours as needed for discomfort. Sitz bath should be performed at least 3 times a day (more often for comfort if desired) Return to emergency care if you develop new fevers, worsening swelling/pain, inability to move your bowels, or if you are very worried and need to be rechecked again immediately Referrals: [facility] [Provider Group] HPI General Date/Time Provider Initiated Documentation: 10/14/24 10:11 . HPI Narrative: Yuliet is a 39year old female who presents to the emergency department today for evaluation of worsening rash to her left buttock. She reports that 5 days ago she started with a rash on her left buttock that was painful, was seen by [facility] 2 days ago and prescribed Bactrim for presumed cellulitis. She has been taking as prescribed, but has since developed hot/cold chills, generalized malaise, and persistent headache. Denies recorded fevers, nausea/vomiting, abdominal pain, bowel or bladder concerns, drainage from the rash, or similar rashes elsewhere. Past medical history is significant for depression, HTN, SCHWARTZ. Physical exam remarkable for significant tender indurated area on inferior left buttock near the gluteal crease. Area significantly tender to palpation, no surrounding skin openings. Mild erythema underlying. Patient is alert and oriented, uncomfortable but in no acute distress. Easy work of breathing, lung sounds clear bilaterally. Normal heart sounds. Abdomen soft, nondistended, nontender to palpation. Moving all extremities equally. D/dx includes but is not limited to: Superficial abscess, perianal abscess, cellulitis, pilonidal disease, anal fistula I independently interpreted the following tests: CBC, sed rate unremarkable. CRP elevated at 10.18. CT pelvis with contrast performed, significant for 5.4 x 4.9 x 5.3 cm left perianal abscess. Toradol Tylenol given for discomfort, vancomycin given for antibiotic coverage. Discussed case with Dr. Travis, general surgery. He was available to perform procedure after clinic hours, reviewed discharge instructions with him, including follow-up and symptomatic management for Dr. Gomez to perform procedural sedation. Procedure started at 1600, Handoff report given to Demetrius HERNDON, evening PAYTON pending recovery from sedation. Related Data Home Medications ?Medication ?Instructions ?Recorded ?Confirmed ondansetron HCl 4 mg tablet 4 mg PO PRN 11/08/14 10/14/24 (Zofran) eletriptan 20 mg tablet (Relpax) 20 mg PO PRN 09/23/17 10/14/24 lisdexamfetamine 30 mg capsule 30 mg PO DAILY 09/26/22 10/14/24 (Vyvanse) lisdexamfetamine 40 mg capsule 40 mg PO QAM 09/26/22 10/14/24 (Vyvanse) magnesium oxide 400 mg PO DAILY 09/26/22 10/14/24 lisinopril 2.5 mg tablet 5 mg PO DAILY 01/14/24 10/14/24 rizatriptan 10 mg tablet See Rx Instructions PO .COMPLEX 01/14/24 10/14/24 riboflavin (vitamin B2) 25 mg 25 mg PO DAILY 01/26/24 10/14/24 tablet topiramate 50 mg capsule,extended 50 mg PO DAILY 01/26/24 10/14/24 release 24 hr pantoprazole 40 mg tablet,delayed 40 mg PO DAILY #90 tabs 03/02/24 10/14/24 release (Protonix) levonorgestrel 21 mcg/24 hr (up to 1 device intrauterine ONCE 05/28/24 10/14/24 8 years) 52 mg intrauterine device (Mirena) colestipol 1 gram tablet g PO 07/26/24 lisinopril 5 mg tablet 5 mg PO DAILY 07/26/24 10/14/24 fluconazole 150 mg tablet 150 mg PO Q3D 3 doses #3 tabs 10/12/24 10/14/24 sulfamethoxazole 800 1 tab PO BID UTi 10 days #20 tabs 10/12/24 10/14/24 mg-trimethoprim 160 mg tablet (Bactrim DS) Previous Rx's ?Medication ?Instructions ?Recorded pantoprazole 40 mg tablet,delayed 40 mg PO DAILY #90 tabs 03/02/24 release (Protonix) fluconazole 150 mg tablet 150 mg PO Q3D 3 doses #3 tabs 10/12/24 sulfamethoxazole 800 1 tab PO BID UTi 10 days #20 tabs 10/12/24 mg-trimethoprim 160 mg tablet (Bactrim DS) Allergies Allergy/AdvReac Type Severity Reaction Status Date / Time tioconazole (From Monistat 1) Allergy Intermediate Swelling/Ed Verified 10/14/24 10:19 erinn methotrexate Allergy Mild Contraindic Verified 10/14/24 10:19 ated General Stated Complaint: Cellulitis MAYA: 3 Review of Systems Narrative: See HPI Exam Const General: cooperative, healthy appearing and no acute distress Nutritional Appearance: average body habitus Orientation: alert and oriented x3 Resp Effort & Inspection: normal respiratory effort and able to speak in complete sentences Auscultation: clear to auscultation bilaterally Cardio Rate: regular rate Rhythm: regular rhythm GI Inspection: normal to inspection and non-distended Palpation: soft, not firm, no guarding, not rigid and nontender Back/Spine/Pelvis Back/spine/pelvis image: 2 1. Tender indurated area Skin Trauma: no lacerations or abrasions Wounds: no wounds Course Vital Signs Vital signs: Vital Signs Temperature 37.1 C 10/14/24 10:18 Pulse 102 H 10/14/24 10:18 Respiratory Rate 18 10/14/24 10:18 Blood Pressure 131/87 10/14/24 10:18 Pulse Oximetry 98 10/14/24 10:18 Temperature 37.1 C 10/14/24 10:26 Pulse 72 10/14/24 13:40 Pulse 74 10/14/24 13:40 Respiratory Rate 23 10/14/24 13:40 Blood Pressure 131/87 10/14/24 10:26 Pulse Oximetry 95 10/14/24 13:40 Pain Level 6 10/14/24 10:26 Lab/Test Results Lab/Test Results: 10/14/24 10:45 Blood Blood Culture - Pending 10/14/24 11:55 Blood Blood Culture - Pending Laboratory Tests Range/Units 10/14/24 10:45 WBC (4.4-10.8) 10^3/uL 10.78 RBC (3.93-5.22) 10^6/uL 4.94 Hgb (11.2-15.7) g/dL 14.1 Hct (36.0-46.0) % 44.3 MCV (80-95) fL 90 MCH (27.0-33.0) pg 28.5 MCHC (32.0-36.0) % 31.8 L RDW (11.7-14.6) % 12.0 Plt Count (130-400) 10^3/uL 244 MPV (8.0-11.0) fL 8.6 Immature Gran % % 0.4 Neutrophils % % 76.9 Lymphocytes % % 13.5 Monocytes % % 8.2 Eosinophils % % 0.6 Basophils % % 0.4 Nucleated RBC % (0.0-0.3) % 0.0 Absolute Neutrophils (1.2-6.7) 10^3/uL 8.30 H Absolute Lymphocytes (1.2-3.4) 10^3/uL 1.46 Absolute Monocytes (0.1-0.8) 10^3/uL 0.88 H Absolute Eosinophils (0.0-0.7) 10^3/uL 0.06 Absolute Basophils (0.0-0.2) 10^3/uL 0.04 ESR (0-20) mm/hr 18 Sodium (136-145) mmol/L 142 Potassium (3.5-5.1) mmol/L 4.1 Chloride (98-107) mmol/L 106 Carbon Dioxide (21.0-32.0) mmol/L 26.9 Anion Gap (3-11) mmol/L 9.1 BUN (7-18) mg/dL 12 Creatinine (0.55-1.02) mg/dL 1.2 H Est GFR (CKD-EPI 2020) (mL/min/1.73m2) 58.69 Glucose (74-106) mg/dL 111 H Calcium (8.5-10.1) mg/dL 9.5 C-Reactive Protein (<or=0.5) mg/dL 10.18 H Medical Decision Making Imaging Data Radiologic Study: Radiologist's impression: Exam(s) CT PELVIC W EXAM: CT PELVIC W CLINICAL HISTORY: abscess to L buttock TECHNIQUE: Imaging Protocol: Axial computed tomography images with coronal and sagittal reformatted images were created and reviewed CONTRAST MATERIAL: Intravenous: Omnipaque 350 Contrast volume:100 mL Oral: No COMPARISON: CT RENAL COLIC WO CONTRAST from 09/02/2016 FINDINGS: PELVIS: Abdominal Aorta: Abdominal portion non-dilated. Bowel: No obstruction or bowel wall thickening. Appendix is unremarkable. Peritoneal Cavity: No ascites, collection or mesenteric inflammatory response. Soft Tissues: In the left perianal soft tissues there is a peripherally enhancing fluid collection measuring 5.4 AP by 4.9 transverse by 5.3 craniocaudad cm. It is most consistent with an abscess. Bladder: Symmetric distention, no gross wall thickening. Reproductive Organs: There is an IUD within the uterus. Lymph Nodes: Within normal limits. Bones: Within normal limits. IMPRESSION: 5.4 x 4.9 x 5.3 cm left perianal abscess. Quality:SDOH Health Related Social Needs: 2 No Data to Display PFSH All Active Problems (Updated 10/14/24 @ 16:05 by Sonali Steve) Abscess, perianal (Acute) Gastritis (Acute) SCHWARTZ (nonalcoholic steatohepatitis) (Acute) Excessive use of nonsteroidal anti-inflammatory drugs (NSAIDs) (Acute) Marijuana use (Acute) Right upper quadrant pain (Acute) Nausea and vomiting (Acute) Depression (Chronic) Hypertension (Chronic) Migraine (Chronic) Medical History Presence of Mirena IUD Mirena IUD removed and replaced 05/28/14 Bleeding hemorrhoid Obesity Recurrent major depression Opioid dependence in remission PTSD (post-traumatic stress disorder) Pt states no potential triggers Insomnia Iridocyclitis Generalized pustular psoriasis Diarrhea History of abnormal cervical Pap smear May 2024: NIL/HPV+ ->colp: benign appearing Jun 2021: NIL/HPV+ -->Colposcopy 09/2022: normal May 2020: NIL/HPV+ History of risk factor for suicide Recurrent candidiasis of vagina HPV (human papilloma virus) anogenital infection + Jun 2021 and May 2020. Normal cytology. Colposcopy 09/2022: normal Needs repeat pap 09/2023 Anterior uveitis ADD (attention deficit disorder) Anxiety Migraines Surgical History History of endoscopy History of colonoscopy (~02/2024) [place] normal colonoscopy w/ normal random bx, internal hemorrhoids section Hemorrhoidectomy Family History Other Diabetes Hypertension Social History Smoking/Tobacco Use Status: Former Tobacco Use Quit Date: 06/16/16 Smoking risk assessment performed?: Yes Alcohol Intake: never Drug use: Occasionally Substance use type: marijuana Housing: apartment Sexually active: Yes Current gender identity: female Gretchen/Jainism: Other Do you feel safe at home: Yes Do you feel safe in your relationship?: Yes Female Reproductive History Menstrual Age of Menarche: 11 Duration of menses: 3-5 days control method: pills History History 2 3 Para Hx # Term Pregnancies 2 Multiple births Hx # Pregnancies Ectopic pregnancies AB induced Hx Number of Living Children AB spontaneous 1 Past Pregnancies Del. Date GA/Weeks # Preg Succ Route Wgt Sex Labor Lgth Anesth esia Location [facility] 08/12/06 40 Yes 3770.487 g Male [facility] 10/24/09 Yes 3798.836 g Female [facility]
[2024-10-14] MEDS: ACETAMINOPHEN 1,000 MG/100 ML BTL 400 MG IVPB (15:19)
[2024-10-14] MEDS: Propofol 200 MG/20 ML VIAL 90 MG IVP (16:27)
[2024-10-14] MEDS: fentaNYL 100 MCG/2 ML VIAL 50 MCG IVP (16:28)
[2024-10-14] MEDS: Lidocaine 1% Multi-Dose 50 ML VIAL (16:29)
--- NOTE | 2024-10-14 16:33 | RESPIRATORY ---
10/14/2024 Called to ED to assist with conscious sedation; pt placed on ETCO2 monitoring and NRB for preoxygenation. Ambu bag, oral airway, nasal airway, and suction set up and ready at bedside. Pt SPO2 and ETCO2 remained stable throughout procedure. Procedure over and patient able to follow direction and is talking. NRB and ETCO2 monitoring removed, checked in with RN before leaving room.
--- NOTE | 2024-10-14 16:34 | PROC.BLANK_ITS ---
Date of service: 10/14/24 Time of Service: 16:34 Procedures Procedural Sedation Indication: incision and drainage of absess ASA Class: II Preparation: director of cardiac cath lab applied, pulse oximeter, capnometry used, supplemental O2 applied and suction/airway equipment at bedside Fentanyl: IV Fentanyl dose (mcg): 99 IV Propofol dose (mg): 140 Patient Tolerated Procedure: other (continued to expereince pain) Complications: none Medical Decision Making Quality:SDOH Health Related Social Needs: No Data to Display
== END 2024-10-14 18:02 | disposition home or self-care (01) ==
PROVIDERS: Nurse Practitioner Family; Emergency Provider Physician Assistant; PCP Family Medicine
DX: K61.0 Anal abscess (principal); I10 Essential (primary) hypertension; Z97.5 Presence of (intrauterine) contraceptive device; Z87.891 Personal history of nicotine dependence
CPT/HCPCS: 36415; 46050; 80048; 85652; 87040; 96365; 96366; 96367; 96375; 99156; 99285; 72193; 85025; 86140; J0131; J1885; J2003; J2704; J3010; J3370

== ENCOUNTER 2024-12-02 14:14 | Outpatient (REF) | payer MEDICAID, SELFPAY | END 2024-12-02 14:15 | disposition home or self-care (01) | LOC: LBN 14:14 | PROVIDERS: PCP Family Medicine; Visit Provider Obstetrics & Gynecology | DX: B37.31 Acute candidiasis of vulva and vagina (principal) | CPT/HCPCS: 87102; 87107; 87206; 87480; 87510; 87660 ==

== ENCOUNTER 2024-12-14 07:21 | Outpatient (CLI) | payer MEDICAID, SELFPAY ==
--- NOTE | 2024-12-14 | DI.CT_ITS ---
Exam(s) CT FACIAL W EXAM: CT FACIAL W CLINICAL HISTORY: LT CHEEK MASS,? RELATED TO RECENT ROOT CANAL,R22.0. TECHNIQUE: Imaging Protocol: Axial computed tomography images with coronal and sagittal reformatted images were created and reviewed CONTRAST MATERIAL: Intravenous: Omnipaque 350 Contrast volume:100 ml contrast route:IV - COMPARISON: CT HEAD WITHOUT CONTRAST from 12/02/2013 CR,XR XR NASAL BONES from 01/13/2020 FINDINGS: Facial Bones: No fracture is noted in the facial bones. There is a large erosion around the roots of the left maxillary 1st and 2nd premolar teeth. This measures approximately 1.2 cm. There is lateral cortical breakthrough and small adjacent fluid collection. There may also be a cortical breakthrough superiorly into the left maxillary sinus where there is small amount of mucous retention. There have been multiple tooth extractions but no additional abnormal lytic lesions. There is a small metallic fragment in the left mandibular ramus. Sinuses and Mastoids: Small amount of mucous retention at the floor of the left maxillary sinus. The remaining sinuses are clear. Globes, extraocular muscles, optic nerves and retrobulbar fat: Normal. Upper aerodigestive tract: Normal. Mandible and bilateral temporomandibular joints: Normal. Soft tissues: there is a rounded soft tissue density measuring 15 millimeters, anterior to the level of the left masseter muscle and adjacent to the left maxilla. The parotid and submandibular glands and visualized portions of the thyroid are unremarkable. The visualized portions of the brain are are unremarkable. IMPRESSION: 1.2 centimeter periapical lucency around the roots of the left maxillary 1st and 2nd premolar teeth with cortical breakthrough laterally as well as superiorly. Adjacent 15 millimeter soft tissue density collection, presumably infectious in nature. RADIATION DOSE DELIVERED: 733.03mGy.cm Total DLP DATA REPOSITORY: All CT scans at this facility are submitted to the National Radiology Data Registry (NRDR) Dose Index Registry (DIR) with the [employer] (A[employer]). RADIATION OPTIMIZATION: All CT scans at this facility use at least one of these dose optimization techniques: automated exposure control; mA and/or kV adjustment per patient size (includes targeted exams where dose is matched to clinical indication); or iterative reconstruction.
[2024-12-14 10:38] LABS: Iron 59 ug/dL (50-170); Total Iron Binding Capacity 356 ug/dL (250-450); Transferrin Sat 17 % (15-50)
[2024-12-14 10:55] LABS: Ferritin 39 ng/mL (8-252)
[2024-12-14] MEDS: Normal Saline - Diluent 50 ML VIAL IJ (10:56)
[2024-12-14] MEDS: Omnipaque 350 MG/ML 500 ML BTL-Imaging package 100 ML IJ (10:56)
[2024-12-14 11:06] LABS: Estimated GFR 73.04 (mL/min/1.73m2)
[2024-12-14 23:27] LABS: HIV-1/2 Ag & Ab Screen Negative (Negative)
[2024-12-16 18:34] LABS: Liver/Kidney Microsome Type 1 <5.0 U
== END 2024-12-14 07:41 ==
LOC: DI 07:21
PROVIDERS: Physician Assistant; PCP Family Medicine; Visit Provider Family Medicine
DX: R22.0 Localized swelling, mass and lump, head (principal); R93.89 Abnormal findings on diagnostic imaging of other specified body structures
CPT/HCPCS: 36415; 87389; 70487; 82565; 82728; 83540; 83550; 86038; 86225; 86255

== ENCOUNTER 2024-12-16 11:18 | Emergency (ER) | payer MEDICAID, SELFPAY ==
[2024-12-16 11:22] VITALS: BP 136/89; PULSE 93; RESP 20; TEMP 36.7; O2SAT 98
[2024-12-16 12:19] VITALS: BP 136/89; PULSE 93; RESP 20; TEMP 36.7; O2SAT 98
--- NOTE | 2024-12-16 12:44 | W.ED.GENAD ---
Discharge Plan Disposition Patient Disposition: Home Condition: Good Discharge Details Clinical Impression: Mass of intraoral region Primary Care Provider: Chanel Tesfaye ED Provider: Jose Raul Mccracken Home Meds and New Rx's Prescriptions: New amoxicillin-pot clavulanate 875-125 mg tablet 1 tab PO BID 7 Days Qty: 14 0RF No Action Mirena 21 mcg/24hr (up to 8 yrs) 52 mg intrauterine device 1 device intrauterine ONCE Rx Instructions: as a single dose lisdexamfetamine [Vyvanse] 40 mg capsule 40 mg PO QAM lisdexamfetamine [Vyvanse] 30 mg capsule 30 mg PO DAILY Patient Comments: 09/26/22- Pt states she takes in afternoon magnesium oxide 400 mg magnesium capsule 400 mg PO DAILY riboflavin (vitamin B2) 25 mg tablet 25 mg PO DAILY topiramate 50 mg capsule,extended release 24hr 50 mg PO DAILY ondansetron HCl [Zofran] 4 MG tablet 4 mg PO PRN eletriptan [Relpax] 20 MG tablet 20 mg PO PRN rizatriptan 10 mg tablet See Rx Instructions PO .COMPLEX Rx Instructions: take 1 tab at onset of headache; if no relief may repeat 1 tab after at least 2 hrs; max = 3 tabs/24 hr PO fluconazole 150 mg tablet 150 mg PO Q3D Qty: 30 0RF lisinopril 5 mg tablet 5 mg PO DAILY Patient Comments: TAKE ONE TABLET BY MOUTH EVERY DAY Discharge Instructions Additional Instructions: At this time you have a small mass in your oral lesion. We have placed a referral with ENT, but please also follow-up with your oral surgeons. Please take the antibiotic as directed out of the potential concern that this may be infectious. If you notice any worsening of your symptoms, or any new symptoms such as vomiting, diarrhea, fever, chills, shortness of breath, chest pain, numbness, weakness, or fainting , please return immediately to the emergency department for reevaluation. Please follow up with your primary care provider as soon as possible for reassessment and reevaluation. As always, it was a pleasure participating in your medical care today. Referrals: Chanel Tesfaye MD [Primary Care Provider, Medicine] Discharge Data Discharge Date/Time-TO BE ENTERED AT DEPARTURE: 12/16/24 12:57 HPI General Date/Time Provider Initiated Documentation: 12/16/24 11:20. HPI Narrative: This is a pleasant 39-year-old female with past medical history of Knapp, hypertension, depression, migraines, who presents for an atypical oral lesion. Patient initially had a tooth extraction and root canal in September. Around that time the patient also had a complicating perirectal infection. Patient was initially on Bactrim on 10/12, and then on 11/25 was started on amoxicillin. During this entire time the patient states that she has had a small mass/lesion in the left upper gum. This has been persistent. She went to see her primary care provider (Dr. Jiang ) recently, who ordered CT imaging of the face. CT scan results returned and show evidence of 1.2 centimeter periapical lucency around the roots of the left maxillary 1st and 2nd premolar teeth with cortical breakthrough laterally as well as superiorly. Adjacent 15 millimeter soft tissue density collection, presumably infectious in nature. Dr. Tesfaye was on vacation, and Dr. Schaffer was in charge of her patients for an on-call status. The results of the CT scan were forwarded to him. He contacted the emergency department for thoughts. Decision was made to bring the patient in for evaluation and potential drainage of abscess if indicated. Currently the patient denies any significant pain. She states that the lesions seem to have gotten slightly smaller on her first round of antibiotics but not the second. She denies any current fever. She does have the outpatient referral placed for oral surgery. No other complaints at this time. No difficulty swallowing or drinking. No significant headache. Related Data Home Medications ?Medication ?Instructions ?Recorded ?Confirmed ondansetron HCl 4 mg tablet 4 mg PO PRN 11/08/14 12/16/24 (Zofran) eletriptan 20 mg tablet (Relpax) 20 mg PO PRN 09/23/17 12/16/24 lisdexamfetamine 30 mg capsule 30 mg PO DAILY 09/26/22 12/16/24 (Vyvanse) lisdexamfetamine 40 mg capsule 40 mg PO QAM 09/26/22 12/16/24 (Vyvanse) magnesium oxide 400 mg PO DAILY 09/26/22 12/16/24 rizatriptan 10 mg tablet See Rx Instructions PO .COMPLEX 01/14/24 12/16/24 riboflavin (vitamin B2) 25 mg 25 mg PO DAILY 01/26/24 12/16/24 tablet topiramate 50 mg capsule,extended 50 mg PO DAILY 01/26/24 12/16/24 release 24 hr levonorgestrel (Mirena) 1 device intrauterine ONCE 05/28/24 12/16/24 lisinopril 5 mg tablet 5 mg PO DAILY 07/26/24 12/16/24 fluconazole 150 mg tablet 150 mg PO Q3D #30 tabs 12/15/24 12/16/24 amoxicillin 875 mg-potassium 1 tab PO BID 7 days #14 tabs 12/16/24 clavulanate 125 mg tablet Previous Rx's ?Medication ?Instructions ?Recorded fluconazole 150 mg tablet 150 mg PO Q3D #30 tabs 12/15/24 amoxicillin 875 mg-potassium 1 tab PO BID 7 days #14 tabs 12/16/24 clavulanate 125 mg tablet Allergies Allergy/AdvReac Type Severity Reaction Status Date / Time tioconazole (From Monistat 1) Allergy Intermediate Swelling/Ed Verified 12/16/24 11:26 erinn methotrexate Allergy Mild Contraindic Verified 12/16/24 11:26 ated General Stated Complaint: DentalOral MAYA: 4 Exam Narrative Exam Narrative: 1.Const: Well-nourished, Well-developed, appearing stated age 2.Eyes: PERRL, no conjunctival injection, and symmetrical lids. 3.ENT: Atraumatic external nose and ears. Moist MM. Neck: Symmetric, trachea midline, No thyromegaly. The actual periapical abscess noted on CT imaging could not be palpated, however the larger mass just adjacent to the patient's extracted tooth site is relatively nontender. No significant fluctuance. It does feel somewhat firm. No redness or warmth. No evidence of Ludewig's angina. 4.CVS: +S1/S2, Peripheral pulses 2+ and equal in all extremities. Brisk capillary refill in all extremities. 5.RESP: Unlabored respiratory effort. Clear to auscultation bilaterally. No wheezes rales or rhonchi 6.GI: Soft, Nontender/Nondistended, No hepatosplenomegaly. No guarding or rebound. 7.MSK: Normocephalic/Atraumatic, Extremities w/o deformity or ttp No cyanosis or clubbing, Normal movement of all extremities 8.Skin: Warm, Dry. No rashes or lesions. 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 Sensation grossly intact, no focal neurologic deficits. 10.Psych: (AAO) x3. Appropriate mood and affect Course Vital Signs Vital signs: Vital Signs Temperature 36.7 C 12/16/24 11:22 Pulse 93 H 12/16/24 11:22 Respiratory Rate 20 12/16/24 11:22 Blood Pressure 136/89 12/16/24 11:22 Pulse Oximetry 98 12/16/24 11:22 Temperature 36.7 C 12/16/24 12:19 Temperature Source Oral 12/16/24 12:19 Pulse 93 H 12/16/24 12:19 Respiratory Rate 20 12/16/24 12:19 Blood Pressure 136/89 12/16/24 12:19 Blood Pressure Position Sitting 12/16/24 12:19 Pulse Oximetry 98 12/16/24 12:19 Oxygen Delivery Method Room Air 12/16/24 12:19 Oxygen Flow Rate 0 12/16/24 12:19 Pain Level 2 12/16/24 12:19 Procedure Abscess Drainage Date of Procedure: 12/16/24 Time of Procedure: 14:00 Provider that performed the procedure: Jose Raul Mccracken Standard Time Out Performed: Yes Patient Consented: Verbally Medical Decision Making This is a pleasant 39-year-old female with past medical history of Knapp, hypertension, depression, migraines, who presents for an atypical oral lesion. Patient initially had a tooth extraction and root canal in September. Around that time the patient also had a complicating perirectal infection. Patient was initially on Bactrim on 10/12, and then on 11/25 was started on amoxicillin. During this entire time the patient states that she has had a small mass/lesion in the left upper gum. This has been persistent. She went to see her primary care provider (Dr. Jiang ) recently, who ordered CT imaging of the face. CT scan results returned and show evidence of 1.2 centimeter periapical lucency around the roots of the left maxillary 1st and 2nd premolar teeth with cortical breakthrough laterally as well as superiorly. Adjacent 15 millimeter soft tissue density collection, presumably infectious in nature. Dr. Tesfaye was on vacation, and Dr. Schaffer was in charge of her patients for an on-call status. The results of the CT scan were forwarded to him. He contacted the emergency department for thoughts. Decision was made to bring the patient in for evaluation and potential drainage of abscess if indicated. Currently the patient denies any significant pain. She states that the lesions seem to have gotten slightly smaller on her first round of antibiotics but not the second. She denies any current fever. She does have the outpatient referral placed for oral surgery. No other complaints at this time. No difficulty swallowing or drinking. No significant headache. Physical exam demonstrates a scenario where the actual periapical abscess noted on CT imaging could not be palpated, however the larger mass just adjacent to the patient's extracted tooth site is relatively nontender. No significant fluctuance. It does feel somewhat firm. No redness or warmth. No evidence of Ludewig's angina. Discussed risks and benefits of needle I&D to evaluate for potential abscess with potential need for culture. Patient consented to procedure. The gum was anesthetized, the needle was then placed into the lesion, and there is no evidence of abscess or drainage. Very small amount of bleeding was noted. Out of concern for potential mass or enlarged lymph node, I have placed a referral for ENT for surgery further surgical evaluation. Additionally outpatient oral surgery consult has already been made. Out of concern for a potential infectious component, we will add Augmentin for potential oral phillip component. With no evidence of airway compromise or other concerning life-threatening component, I do feel that outpatient follow-up is reasonable. I have extensively reviewed the treatment plan and discharge instructions with the patient. I have addressed all patient concerns at this time. The patient was made aware of what symptoms to monitor for that would warrant a return to the emergency department. Discussed the plan with the patient, they demonstrate verbal understanding and agreement with our assessment and plan at this time. The documentation in this chart was dictated using [employer] dictation software. Please excuse any dictation errors. The patient's left upper gumline was was anesthetized with 1% lidocaine, 3 cc were instilled. Following this a 18-gauge needle was inserted into the firm abscess versus mass. No purulence drainage or other abnormality were noted. Small amount of bleeding, which was well-controlled with pressure. Patient tolerated procedure well. PFSH All Active Problems (Updated 12/16/24 @ 12:45 by Jose Raul Mccracken DO) Mass of intraoral region (Acute) Gastritis (Acute) KNAPP (nonalcoholic steatohepatitis) (Acute) Excessive use of nonsteroidal anti-inflammatory drugs (NSAIDs) (Acute) Marijuana use (Acute) Right upper quadrant pain (Acute) Nausea and vomiting (Acute) Depression (Chronic) Hypertension (Chronic) Migraine (Chronic) Medical History Presence of Mirena IUD Mirena IUD removed and replaced 05/28/14 Bleeding hemorrhoid Obesity Recurrent major depression Opioid dependence in remission PTSD (post-traumatic stress disorder) Pt states no potential triggers Insomnia Iridocyclitis Generalized pustular psoriasis Diarrhea History of abnormal cervical Pap smear May 2024: NIL/HPV+ ->colp: benign appearing Jun 2021: NIL/HPV+ -->Colposcopy 09/2022: normal May 2020: NIL/HPV+ History of risk factor for suicide Recurrent candidiasis of vagina HPV (human papilloma virus) anogenital infection + Jun 2021 and May 2020. Normal cytology. Colposcopy 09/2022: normal Needs repeat pap 09/2023 Anterior uveitis ADD (attention deficit disorder) Anxiety Migraines Surgical History History of endoscopy History of colonoscopy (~02/2024) [place] normal colonoscopy w/ normal random bx, internal hemorrhoids section Hemorrhoidectomy Family History Other Diabetes Hypertension Social History Smoking/Tobacco Use Status: Former Tobacco Use Quit Date: 06/16/16 Smoking risk assessment performed?: Yes Alcohol Intake: never Drug use: Occasionally Substance use type: marijuana Housing: apartment Sexually active: Yes Current gender identity: female Gretchen/Ep[employer]opalian: Other Do you feel safe at home: Yes Do you feel safe in your relationship?: Yes Female Reproductive History Menstrual Age of Menarche: 11 Duration of menses: 3-5 days control method: pills History History 3 Para Hx # Term Pregnancies 2 Multiple births Hx # Pregnancies Ectopic pregnancies AB induced Hx Number of Living Children AB spontaneous 1 Past Pregnancies Del. Date GA/Weeks # Preg Succ Route Wgt Sex Labor Lgth Anesthesia Location Prov Complic 08/12/06 39 Yes 3770.487 g Male [facility] 10/24/09 Yes 3798.836 g Female [facility] POCUS Exam (ED) Limited Soft Tissue Exam PROVIDER THAT PERFORMED THE STUDY: Jose Raul Mccracken
[2024-12-16 12:54] VITALS: BP 141/105; PULSE 81; RESP 18; O2SAT 99
== END 2024-12-16 12:57 | disposition home or self-care (01) ==
PROVIDERS: Emergency Provider Student in an Organized Health Care Education/Training Program; PCP Family Medicine
DX: K13.70 Unspecified lesions of oral mucosa (principal); I10 Essential (primary) hypertension
CPT/HCPCS: 10160; 99283

== ENCOUNTER 2025-05-25 10:45 | Outpatient (REF) | payer MEDICAID, SELFPAY ==
[2025-05-25 21:26] LABS: ALT 20 U/L (10-49); AST 23 U/L (<34); Albumin 4.5 g/dL (3.2-5.0); Alkaline Phosphatase 104 U/L (46-116); Anion Gap 9.6 mmol/L (3-11); BUN 16 mg/dL (9-23); Bilirubin, Total 0.3 mg/dL (0.2-1.2); CO2 29.4 mmol/L (20.0-31.0); Calcium 9.6 mg/dL (8.3-10.6); Chloride 107 mmol/L (98-107); Cholesterol 106 mg/dL (<200); Glucose 72 mg/dL (74-106); HDL Cholesterol 40 mg/dL (>40); Potassium 4.4 mmol/L (3.5-5.1); Sodium 146 mmol/L (136-145); Total Protein 7.2 g/dL (5.7-8.2)
[2025-05-25 21:44] LABS: Hemoglobin A1C 5.5 % (<5.7)
== END 2025-05-25 10:46 | disposition home or self-care (01) ==
LOC: NCHCN 10:45
PROVIDERS: PCP Family Medicine; Visit Provider Family Medicine
DX: I10 Essential (primary) hypertension (principal); R73.03 Prediabetes; Z13.220 Encounter for screening for lipoid disorders
CPT/HCPCS: 80053; 80061; 83036

== ENCOUNTER → 2025-06-13 14:57 | Outpatient (CLI) | payer MEDICAID, SELFPAY ==
--- NOTE | 2025-06-13 | DI.MAMMO_ITS ---
Exam(s) MAMMO SCREENING EXAM: MAMMO SCREENING CLINICAL HISTORY: SCREENING ,Z12.31. TECHNIQUE: Bilateral full field digital CC and MLO mammographic images were obtained with 3D tomosynthesis and utilizing computer aided detection (CAD). COMPARISON: None. This is a baseline mammogram on a 40-year-old patient FINDINGS: There are no new spiculated masses nor malignant appearing microcalcification groups. There is no significant architectural distortion nor skin thickening-retraction. IMPRESSION: No radiographic evidence of malignancy. BI-RADS Category 1 - Negative Breast Density - Category B - There are scattered areas of fibroglandular density. Breast density Category C or D implies that the patient has dense breast tissue. Dense breast tissue can make it harder to find cancer on a mammogram. Dense breast tissue is also associated with an increased risk of breast cancer. This information about the result of the mammogram report was provided to the patient to raise their awareness. Use this report when you speak with the patient about their risks for breast cancer, which includes their family history. At that time, you may recommend additional screening tests (Ultrasound or MRI) as these tests may add significant information. A negative radiographic report should not delay biopsy if a dominant or clinically suspicious mass is present. Up to ten percent of cancers are not identified on mammography. A negative report may reinforce clinical impression. Adenosis and dense breasts may obscure an underlying neoplasm. False positive reports average 6 to 10%. Patient will receive a letter notifying them of these results.
== END ==
LOC: DI 14:57
PROVIDERS: PCP Family Medicine; Visit Provider Family Medicine
DX: Z12.31 Encounter for screening mammogram for malignant neoplasm of breast (principal)
CPT/HCPCS: 77063; 77067